=== PATIENT | male | born 1940 | race Hispanic/Latino ===

== ENCOUNTER 2017-10-29 20:14 | Emergency (ER) | payer MEDICARE ==
[~2017-10-29] VITALS: Ht 175.3 cm; Wt 87.5 kg
--- OUTSIDE RECORDS SUMMARY | 2017-10-29 20:18 | XMS REPORT | Summary of Care ---
Author Author NII ESCOBAR M.D. Organization Unknown Address Unknown Phone Unavailable Care Team Providers Care Can Vacuum Tester Name Role Phone NII ESCOBAR M.D. 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 Active Nitrostat 0.4 MG Sublingual Tablet Sublingual PLACE 1 TABLET UNDER THE TONGUE EVERY 5 MINUTES UP TO 3 DOSES NEEDED FOR CHEST PAIN. * Quantity: 30 Refills: 4 NII ESCOBAR M.D. Active Omeprazole 20 MG Oral Capsule Delayed Release TAKE 1 CAPSULE Once PRN * Refills: 0 Active Multiple Vitamin TABS TAKE 1 TABLET DAILY. * Refills: 0 Active Aspirin 81 MG TABS TAKE 1 TABLET DAILY. * Refills: 0 Active Metoprolol Succinate ER 100 MG Oral Tablet Extended Release 24 Hour TAKE 1 TABLET DAILY * Refills: 2 * Start : 24-Aug-2011 Active Tamsulosin HCl - 0.4 MG Oral Capsule TAKE 1 CAPSULE ONCE * Refills: 0 Active MetFORMIN HCl - 500 MG Oral Tablet TAKE 1 TABLET TWICE DAILY. * Refills: 0 * Start : 31-Jan-2016 Active Atorvastatin Calcium 40 MG Oral Tablet qhs * Refills: 0 * Start : 17-Feb-2016 Active Lisinopril 5 MG Oral Tablet TAKE 1 TABLET DAILY * Quantity: 30 Refills: 0 * Start : 17-Feb-2016 Active Finasteride 5 MG Oral Tablet TAKE 1 TABLET DAILY. * Refills: 0 * Start : 11-Apr-2016 Active Furosemide 20 MG Oral Tablet TAKE 1 TABLET DAILY. * Quantity: 30 Refills: 0 NII ESCOBAR M.D. * Start : 11-Apr-2016 Active Allergies and Adverse Reactions Name Dates Details No Known Drug Allergies (Allergy) Status: Active Past Medical History Name Dates Details History of angina pectoris (V12.59, Z86.79) Status: Resolved History of Coronary Artery Disease (V12.59) Status: Resolved History of esophageal reflux (V12.79, Z87.19) Status: Resolved History of essential hypertension (V12.59, Z86.79) Status: Resolved Procedures Procedure Dates Details History of Hernia Repair Completed History of Cath Stent Placement Completed History of CABG Completed Immunization Name Dates Details Immunizations not documented Family History Name Dates Details Family history of Heart Disease (V17.49) Comments: Family History Status: Active Name Dates Details Family history of Hypertension (V17.49) Status: Active Social History Name Dates Details - Status: Name Dates Details Never smoker Vital Signs Date Test Result Details 15-Oct-20178:59 BP Systolic 130 mm[Hg] Status: BP Diastolic 84 mm[Hg] Status: Height 69 in Status: Weight 193 lb Status: Body Mass Index Calculated 28.5 kg/m2 Status: Body Surface Area Calculated 2.03 m2 Status: Heart Rate 62 /min Status: Results Date Description Value Details Results not documented Plan of Care Name Dates Details Planned Observations Planned Goals not documented Planned Encounters Endocrinology Referral Appointment; NII ESCOBAR M.D. On: 11-Feb-2018 9:00 Interventions Provided Instructions* Patient Specific Education Given; Done: 15 Oct 2017 Plan* 1. Coronary artery disease * - Cardiac PET suggestive of HOSPITALITY JOB TITLES LAD * - Signs of alarm provided and card given w/ indication to [place] [facility] [place] worsening * - CABG 4x JORDAN--LAD, SVG to RCA, SVG to D1 and SVG to OM * - no complication thereafter * - no limitations in ADLS * - LBBB chronic * 2. Hypertension * - Well controlled. * - Continue Beta Shasha and GIGI-I as above * 3. Hyperlipidemia * - Continue Lipitor 20 mg (LDL 60's) * 4. HbA1C 6.3 * - Extensive counseling provided regarding diabetes management and its impact in CV disease. * 5. Follow up in 4 mos w/ BP log * - regular, aggressive secondary prevention and referral to Endocrine Discussion/Summary* Clinical cardiac findings reviewed and discussed * EKG reviewed and discussed. Instructions Name Dates Details Instructions not documented Encounters Appointment; NII ESCOBAR M.D. Encounter Diagnosis: Problem not documented On: 18-Oct-2015 9:40 Appointment; NII ESCOBAR M.D. Encounter Diagnosis: Problem not documented On: 20-Dec-2015 9:00 Appointment; SE, NUCLEAR Encounter Diagnosis: Problem not documented On: 23-Dec-2015 9:30 Appointment; NII ESCOBAR M.D. Encounter Diagnosis: Problem not documented On: 30-Dec-2015 8:50 Appointment; NII ESCOBAR M.D. Encounter Diagnosis: Problem not documented On: 31-Jan-2016 9:20 Appointment; NII ESCOBAR M.D. Encounter Diagnosis: Problem not documented On: 11-Apr-2016 11:30 Appointment; NII ESCOBAR M.D. Encounter Diagnosis: Problem not documented On: 03-Jul-2016 8:15 Appointment; NII ESCOBAR M.D. Encounter Diagnosis: Problem not documented On: 30-Oct-2016 9:15 Appointment; NII ESCOBAR M.D. Encounter Diagnosis: Problem not documented On: 05-Mar-2017 9:15 Appointment; NII ESCOBAR M.D. Encounter Diagnosis: Problem not documented On: 05-Mar-2017 9:20 Appointment; SE, ECHO Encounter Diagnosis: Problem not documented On: 02-Apr-2017 9:00 Appointment; NII ESCOBAR M.D. Encounter Diagnosis: Problem not documented On: 10-Apr-2017 8:30 Appointment; SE, ECHO Encounter Diagnosis: Problem not documented On: 07-May-2017 8:00 Appointment; NII ESCOBAR M.D. Encounter Diagnosis: Problem not documented On: 07-May-2017 8:30 Appointment; NII ESCOBAR M.D. Encounter Diagnosis: Problem not documented On: 11-Jun-2017 9:10 Appointment; NII ESCOBAR M.D. Encounter Diagnosis: Problem not documented On: 15-Oct-2017 9:00
[2017-10-29] MEDS ORDERED: METOPROLOL SUCC50 MG PO (20:29)
[2017-10-29] MEDS ORDERED: TAMSULOSIN HCL0.4 MG (20:29)
[2017-10-29] MEDS ORDERED: ASPIR 8181 MG (20:29)
[2017-10-29] MEDS ORDERED: METFORMIN HCL500 MG PO (20:29)
[2017-10-29] MEDS ORDERED: ATORVASTATIN CA20 MG PO (20:29)
[2017-10-29] MEDS ORDERED: LISINOPRIL10 MG PO (20:29)
[2017-10-29] MEDS ORDERED: LASIX20 MG PO (20:29)
== END 2017-10-29 20:52 | disposition home or self-care (01) ==
LOC: FSED 20:14
DX: R19.7 Diarrhea, unspecified (principal); I10 Essential (primary) hypertension; E11.9 Type 2 diabetes mellitus without complications; E78.5 Hyperlipidemia, unspecified; I51.9 Heart disease, unspecified
CPT/HCPCS: 74176; 80053; 81003; 85025; 99282

== ENCOUNTER 2018-08-21 12:21 | Emergency (ER) | payer MEDICARE ==
[~2018-08-21] VITALS: Ht 175.3 cm; Wt 86.2 kg
[~2018-08-21 12:21] MED LIST: ASPIR 8181 MG; ATORVASTATIN CA20 MG PO; LASIX20 MG PO; LISINOPRIL10 MG PO; METFORMIN HCL500 MG PO; METOPROLOL SUCC50 MG PO; TAMSULOSIN HCL0.4 MG
--- OUTSIDE RECORDS SUMMARY | 2018-08-21 12:24 | XMS REPORT | Continuity of Care Document ---
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 SOB Active 02/24/2016 [facility] SYNCOPE Active 02/23/2016 [facility] CORONARY ARTERY DISEASE Active 02/23/2016 [facility] CONSULT FOR CABG Active 02/17/2016 [facility] ABN NUCLEAR STRESS TEST, CAD, CHEST PAIN Active 02/02/2016 [facility] Angina Resolved Problem 07/25/2016 [facility] GARY Osullivan CAD - Coronary artery disease Resolved Problem 07/25/2016 [facility] GARY Osullivan GERD (<span [id number]</span>) Resolved Problem 07/25/2016 [facility] GARY Osullivan HLD (<span [id number]">Confirmed</span>) Resolved Problem 07/25/2016 [facility] GARY Osullivan HTN (<span [id number]">Confirmed</span>) Resolved Problem 07/25/2016 [facility] GARY Osullivan Left ventricular hypertrophy Resolved Problem 07/25/2016 [facility] GARY Osullivan Murmur Resolved Problem 07/25/2016 [facility] GARY Osullivan Coronary artery disease [facility] Hyperlipidemia [facility]olved Problem 07/25[facility] Hypertension Resolved Problem 07/25[facility] ENCNTR FOR GENERAL ADULT MEDICAL EXAM W/ Active [facility] SYNCOPE AND COLLAPSE Active [facility] SHORTNESS OF BREATH Active [facility] OTHER SPECIFIED CONGENITAL DEFORMITIES Active [facility] PRESENCE OF AORTOCORONARY BYPASS GRAFT Active [facility] Medications Medication Details Route Status Patient Instructions Ordering Provider Order Date Source Acetaminophen 300 MG / Codeine Phosphate 30 MG Oral Tablet [Tylenol with Codeine #3] 1 tab, PO, Q8H, X 7 day, # 21 tab, 0 Refill(s) Active 03/21/2016 [facility] atorvastatin 40 mg oral tablet 40 mg=1 tab, PO, Daily, # 30 tab, 3 Refill(s) Active 03/21/2016 [facility] 24 HR Metoprolol Tartrate 100 MG Extended Release Tablet [Toprol] 100 mg=1 tab, PO, Daily, # 30 tab, 3 Refill(s) Active 03/21/2016 [facility] Dulcolax Laxative 10 mg, 1 supp, Route: UT, Drug form: SUPP, ONCE, Dosing Weight 86.3, kg, PRN as needed for constipation, Start date: 03/20/16 16:26:00 CDTNotes: (Same As: Dulcolax, Bisco-Lax) Inactive 03/20/2016 [facility] metoprolol tartrate 50 mg, 1 tab, Route: PO, Drug form: TAB, Q12H, Dosing Weight 86.3, kg, Start date: 03/18/16 21:00:00 CDT, Stop date: 04/17/16 9:00:00 CDTNotes: (Same as: Lopressor) No Longer Active 03/19/2016 [facility] Lactulose 10 gm, 15 mL, Route: PO, Drug Form: SYRP, Dosing Weight 86.3, kg, ONCE, Start date: 03/18/16 2:48:00 CDT, Stop date: 03/18/16 2:48:00 CDTNotes: (Same as:Chronulac) Inactive 03/18/2016 [facility] metoprolol tartrate 12.5 mg, 1 tab, Route: PO, Drug form: TAB, Q6H, Dosing Weight 86.3, kg, Start date: 03/17/16 12:00:00 CDT, Duration: 30 day, Stop date: 04/16/16 6:00:00 CDTNotes: (Same as: Lopressor) 12.5mg=1/4 X 50 mg tab. No Longer Active 03/17/2016 [facility] Insulin, Aspart, Human 2 unit, 0.02 mL, Route: SUB-Q, Drug form: SOLN, TID-Before Meals, Dosing Weight 86.3, kg, PRN Blood Glucose Results, Start date: 03/17/16 11:07:00 CDT, Duration: 30 day, Stop date: 04/16/16 11:06:00 CDTNotes: Roll in palms of hands gently; Do not shake vigorously. (Same as: NovoLOG) "single patient use only" WASTE: F/P - Black; E - Municipal Trash Bin Stable for 28 days at room temperature. Expires in days from Date No Longer Active 03/17/2016 [facility] Dextrose 50% Syringe 12.5 gm, 25 mL, Route: IVP, Drug Form: INJ, Dosing Weight 86.3, kg, PRN, PRN Blood Glucose Results, Start date: 03/17/16 11:07:00 CDT, Duration: 30 day, Stop date: 04/16/16 11:06:00 CDT No Longer Active 03/17/2016 [facility] Glucagon 1 mg, Route: IM, Drug form: PDR/INJ, PRN, Dosing Weight 86.3, kg, PRN Blood Glucose Results, Start date: 03/17/16 11:07:00 CDT, Duration: 30 day, Stop date: 04/16/16 11:06:00 CDT No Longer Active 03/17/2016 [facility] Aspirin 81 mg, 1 tab, Route: PO, Drug form: ECTAB, Daily, Dosing Weight 86.364, kg, Start date: 03/17/16 9:00:00 CDT, Stop date: 04/15/16 9:00:00 CDTNotes: Do not crush or chew. (Same As: Ecotrin) No Longer Active 03/17/2016 [facility] sennosides, CARE HOME 8.6 mg, 1 tab, Route: PO, Drug Form: TAB, Dosing Weight 86.3, kg, BID, Start date: 03/17/16 9:00:00 CDT, Duration: 30 day, Stop date: 04/15/16 17:00:00 CDTNotes: (Same as: Senokot) No Longer Active 03/17/2016 [facility] atorvastatin 40 mg, 1 tab, Route: PO, Drug form: TAB, Bedtime, Dosing Weight 86.3, kg, Start date: 03/16/16 21:00:00 CDT, Duration: 30 day, Stop date: 04/14/16 21:00:00 CDTNotes: (Same as: Lipitor) No Longer Active 03/17/2016 [facility] heparin sodium, porcine 2500 UNT/ML Injectable Solution 5,000 unit, 1 mL, Route: SUB-Q, Drug form: INJ, Q8H, Dosing Weight 86.3, kg, Start date: 03/16/16 16:00:00 CDT, Duration: 30 day, Stop date: 04/15/16 8:00:00 CDTNotes: porcine heparin No Longer Active 03/16/2016 [facility] pantoprazole 40 mg, Route: IVP, Drug form: INJ, Daily, Dosing Weight 86.364, kg, Start date: 03/16/16 9:00:00 CDT, Duration: 30 day, Stop date: 04/14/16 9:00:00 CDTNotes: For IV push reconstitute with 10 ml 0.9% sodium chloride and push over 2 minutes. (Same as: Protonix) No Longer Active 03/16/2016 [facility] Aspirin 325 mg, 1 tab, Route: NG, Drug form: TAB, Daily, Dosing Weight 86.364, kg, Start date: 03/16/16 9:00:00 CDT, Duration: 30 day, Stop date: 04/14/16 9:00:00 CDTNotes: Take with food. Inactive 03/16/2016 [facility] Aspirin 300 MG Rectal Suppository 300 mg, 1 supp, Route: UT, Drug form: SUPP, Daily, Dosing Weight 86.364, kg, Start date: 03/16/16 9:00:00 CDT, Duration: 30 day, Stop date: 04/14/16 9:00:00 CDTNotes: Refrigerate. No Longer Active 03/16/2016 [facility] Dextrose 50% Syringe 12.5 gm, 25 mL, Route: IVP, Drug Form: INJ, Dosing Weight 86.3, kg, PRN, PRN Blood Glucose Results, Start date: 03/16/16 8:57:00 CDT, Duration: 30 day, Stop date: 04/15/16 8:56:00 CDT No Longer Active 03/16/2016 [facility] Glucagon 1 mg, Route: IM, Drug form: PDR/INJ, PRN, Dosing Weight 86.3, kg, PRN Blood Glucose Results, Priority: STAT, Start date: 03/16/16 8:57:00 CDT, Duration: 30 day, Stop date: 04/15/16 8:56:00 CDT No Longer Active 03/16/2016 [facility] Insulin, Aspart, Human 4 unit, 0.04 mL, Route: SUB-Q, Drug form: SOLN, Sliding Scale, Dosing Weight 86.3, kg, PRN Blood Glucose Results, Start date: 03/16/16 8:57:00 CDT, Duration: 30 day, Stop date: 04/15/16 8:56:00 CDTNotes: Roll in palms of hands gently; Do not shake vigorously. (Same as: NovoLOG) "single patient use only" WASTE: F/P - Black; E - Municipal Trash Bin Stable for 28 days at room temperature. Expires in days from Date No Longer Active 03/16/2016 [facility] Protonix 40 mg, 1 tab, Route: PO, Drug form: ECTAB, Before Breakfast, Dosing Weight 86.3, kg, Start date: 03/16/16 7:30:00 CDT, Duration: 30 day, Stop date: 04/14/16 7:30:00 CDTNotes: Tablet should not be chewed or crushed. (Same as: Protonix) No Longer Active 03/16/2016 [facility] Vancomycin 6.67 MG/ML Injectable Solution 750 mg, Route: IVPB, Drug form: PDR/INJ, [id number], Dosing Weight 86.364, kg, Start date: 03/15/16 21:00:00 CDT, Duration: 2 doses or times, Stop date: 03/16/16 9:00:00 CDTNotes: TIME CRITICAL MEDICATION (Same As: Vancocin) Infusion rate 2001 mg: infuse over 2.5 hours No Longer Active 03/16/2016 [facility] ceFAZolin (SCIP) 2 gm, 100 mL, Route: IVPB, Drug form: INJ, ABXQ8H, Dosing Weight 86.3, kg, Start date: 03/15/16 20:00:00 CDT, Duration: 3 doses or times, Stop date: 03/16/16 12:00:00 CDTNotes: Same as: Ancef No Longer Active 03/16/2016 [facility] albumin human 5% intravenous solution 12.5 gm, 250 mL, Route: IV, Drug Form: INJ, Dosing Weight 86.3, kg, ONCE, Start date: 03/15/16 19:19:00 CDT, Stop date: 03/15/16 19:19:00 CDTNotes: LOT#: Mfg: WASTE: F/P - Red; E -Red (Same as: Albuminar) "blood product derivative" Inactive 03/16/2016 [facility] albumin human 25% intravenous solution 25 gm, 100 mL, Route: IVPB, Drug form: INJ, ONCE, Dosing Weight 86.3, kg, Start date: 03/15/16 18:09:00 CDT, Stop date: 03/15/16 18:09:00 CDTNotes: Lot #: Mfg: (Same as: Plasbumin-25) "blood product derivative" WASTE: F/P - Red; E -Red MEDICATION WASTE Product Size: 25 gm Product Wasted: _0_ gm Inactive 03/15/2016 [facility] EPINEPHrine 1 mg/1 ml (PF) INJ AMP 4 mg + sodium chloride 0.9% INJ 246 mL 4 mg, 4 mL, Rate: Titrate, Start Dose: 5 microgram/min, Titration: 0.5 microgram/min every 2 min, Goal(s): MAP >=65 mmHg, Max Dose: 35 microgram/min, Route: IV, Dosing Weight 86.3 kg, Total Volume: 250, Start date: 03/15/16 18:09:00 CDT, Duration: 30...Notes: (Same as: Adrenalin) Suremed - Injectable drug used as inhalation treatment. MEDICATION WASTE Product Size: 1 mg Product Wasted: _0_ mg No Longer Active 03/15/2016 [facility] albumin human 25% intravenous solution 25 gm, 100 mL, Route: IVPB, Drug form: INJ, ONCE, Dosing Weight 86.3, kg, Start date: 03/15/16 17:46:00 CDT, Stop date: 03/15/16 17:46:00 CDTNotes: Lot #: Mfg: (Same as: Plasbumin-25) "blood product derivative" WASTE: F/P - Red; E -Red MEDICATION WASTE Product Size: 25 gm Product Wasted: _0_ gm Inactive 03/15/2016 [facility] Docusate Sodium 100 MG Oral Capsule [Colace] 100 mg, 1 cap, Route: PO, Drug form: CAP, BID, Dosing Weight 86.364, kg, Start date: 03/15/16 17:00:00 CDT, Duration: 30 day, Stop date: 04/14/16 9:00:00 CDTNotes: (Same as: Colace) (Do Not Crush) No Longer Active 03/15/2016 [facility] Insulin, Aspart, Human 4 unit, 0.04 mL, Route: SUB-Q, Drug form: SOLN, TID-Before Meals, Dosing Weight 86.3, kg, PRN Blood Glucose Results, Start date: 03/15/16 16:45:00 CDT, Duration: 30 day, Stop date: 04/14/16 16:44:00 CDTNotes: Roll in palms of hands gently; Do not shake vigorously. (Same as: NovoLOG) "single patient use only" WASTE: F/P - Black; E - Municipal Trash Bin Stable for 28 days at room temperature. Expires in days from Date Inactive 03/15/2016 [facility] Dextrose 50% Syringe 25 gm, 50 mL, Route: IVP, Drug Form: INJ, Dosing Weight 86.3, kg, PRN, PRN Blood Glucose Results, Start date: 03/15/16 16:45:00 CDT, Duration: 30 day, Stop date: 04/14/16 16:44:00 CDT Inactive 03/15/2016 [facility] Glucagon 1 mg, Route: IM, Drug form: PDR/INJ, PRN, Dosing Weight 86.3, kg, PRN Blood Glucose Results, Start date: 03/15/16 16:45:00 CDT, Duration: 30 day, Stop date: 04/14/16 16:44:00 CDT Inactive 03/15/2016 [facility] Sodium Chloride 0.154 MEQ/ML Injectable Solution 250 mL, 250 ml/hr, Infuse Over: 1 hr, Route: IV, ONCE, Priority: STAT, Dosing Weight 86.3 kg, Start date: 03/15/16 16:33:00 CDT, Duration: 1 doses or times, Stop date: 03/15/16 16:33:00 CDT Inactive 03/15/2016 [facility] sodium chloride 0.9% INJ 250 mL 250 mL, Rate: 500 ml/hr, Infuse over: 0.5 hr, Route: IV, Dosing Weight 86.3 kg, Total Volume: 250, Start date: 03/15/16 16:29:00 CDT, Duration: 1 doses or times, Stop date: 03/15/16 16:58:00 CDT Inactive 03/15/2016 [facility] Sodium Chloride 0.154 MEQ/ML Injectable Solution 250 mL, 250 ml/hr, Infuse Over: 1 hr, Route: IV, ONCE, Priority: Routine, Dosing Weight 86.3 kg, Start date: 03/15/16 15:00:00 CDT, Duration: 1 doses or times, Stop date: 03/15/16 15:00:00 CDT Inactive 03/15/2016 [facility] Fentanyl 600 microgram, 30 mL, Route: IV, MEDICAID SERVICE COORDINATOR Dose: 10 mcg, MEDICAID SERVICE COORDINATOR Lockout: 10 minutes, Continuous Basal Rate: 0 mg, 4 Hour Limit (In MCG): 240, Drug Form: INJ, Continuous, Start date: 03/15/16 14:00:00 CDT, Durati on: 30 day, Stop date: 04/14/16 13:59:00 CDTNotes: Concentration is 20 micrograms/ml No Longer Active 03/15/2016 [facility] Naloxone 0.04 mg, 0.1 mL, Route: IVP, Drug form: INJ, Q2MIN, Dosing Weight 86.3, kg, PRN Narcotic Reversal, Start date: 03/15/16 13:40:00 CDT, Duration: 30 day, Stop date: 04/14/16 13:39:00 CDTNotes: Same as Narcan No Longer Active 03/15/2016 [facility] Dextrose 50% Syringe 12.5 gm, 25 mL, Route: IVP, Drug Form: INJ, Dosing Weight 86.3, kg, PRN, PRN Blood Glucose Results, Start date: 03/15/16 13:40:00 CDT, Duration: 30 day, Stop date: 04/14/16 13:39:00 CDT Inactive 03/15/2016 [facility] Insulin regular 100 unit + sodium chloride 0.9% INJ 99 mL 99 mL, Rate: Start Insulin Drip Per ICU Protocol, Dosing Weight 86.3, kg, Route: IVPB, Total Volume: 100, Start Date: 03/15/16 13:40:00 CDT, Duration: 30 day, Stop date: 04/14/16 13:39:00 CDT, Replace Every: 24 hrNotes: (Same as: Humulin R and NovoLIN R) WASTE: F/P - Black; E - Municipal Trash Bin (Do not shake) No Longer Active 03/15/2016 [facility] Hydralazine 10 mg, 0.5 mL, Route: IVP, Drug form: INJ, Q6H, Dosing Weight 86.3, kg, PRN Hypertension, Start date: 03/15/16 13:40:00 CDT, Duration: 30 day, Stop date: 04/14/16 13:39:00 CDTNotes: (Same as: Apresol ine) Push over 5 minutes No Longer Active 03/15/2016 [facility] Metoprolol 2.5 mg, 2.5 mL, Route: IVP, Drug form: INJ, Q4H, Dosing Weight 86.3, kg, PRN Hypertension, Start date: 03/15/16 13:40:00 CDT, Duration: 30 day, Stop date: 04/14/16 13:39:00 CDTNotes: (Same as: Lopres sor) Push over 2 minutes No Longer Active 03/15/2016 [facility] Labetalol 10 mg, 2 mL, Route: IVP, Drug form: INJ, Q4H, Dosing Weight 86.3, kg, PRN Hypertension, Start date: 03/15/16 13:40:00 CDT, Duration: 30 day, Stop date: 04/14/16 13:39:00 CDT No Longer Active 03/15/2016 [facility] niCARdipine 40 mg/ NS 200 ml IV Soln (premix) 40 mg 40 mg, 200 mL, Rate: Titrate, Start Dose: 5 mg/hr, Titration: increase or decrease by 5, but no more than 10, Goal(s): MAP 60, Route: IV, Dosing Weight 86.3 kg, Total Volume: 200 mL, Start date: 03/15/16 13:40:00 CDT, Duration: 30 day, Stop date: ...Notes: Same as: Cardene Concentration: (0.2 mg /1 ml ) No Longer Active 03/15/2016 [facility] Zofran 4 mg, 2 mL, Route: IV, Drug form: INJ, Q6H, Dosing Weight 86.364, kg, PRN Nausea, Start date: 03/15/16 13:40:00 CDT, Duration: 30 day, Stop date: 04/14/16 13:39:00 CDTNotes: (Same as: Zofran) MEDICATION WASTE Product Size: 4 mg Product Wasted: _0_ mg No Longer Active 03/15/2016 [facility] Acetaminophen 325 MG / Hydrocodone Bitartrate 10 MG Oral Tablet 2 tab, Route: PO, Drug Form: TAB, Dosing Weight 86.3, kg, Q4H, PRN Pain Score 4-6, Start date: 03/15/16 13:40:00 CDT, Duration: 30 day, Stop date: 04/14/16 13:39:00 CDTNotes: Do not exceed 4gm/day of acetaminophen. (Same as: Casey 325/10) No Longer Active 03/15/2016 [facility] Fentanyl 25 microgram, 0.5 mL, Route: IVP, Drug form: INJ, Q2H, Dosing Weight 86.3, kg, PRN Pain Score 4-6, Start date: 03/15/16 13:40:00 CDT, Duration: 30 day, Stop date: 04/14/16 13:39:00 CDTNotes: (Same as: Sublimaze) Preservative free. No Longer Active 03/15/2016 [facility] Acetaminophen 650 mg, 2 tab, Route: PO, Drug form: TAB, Q4H, Dosing Weight 86.3, kg, PRN Pain 1-3/Temp > 100.4 F, Start date: 03/15/16 13:40:00 CDT, Duration: 30 day, Stop date: 04/14/16 13:39:00 CDTNotes: Do not exceed 4 gm/day. (Same as: Tylenol) No Longer Active 03/15/2016 [facility] Aspirin 325 MG Oral Tablet 325 mg, 1 tab, Route: NG, Drug form: TAB, ONCE, Dosing Weight 86.364, kg, Start date: 03/15/16 13:40:00 CDT, Stop date: 03/15/16 13:40:00 CDTNotes: Take with food. Inactive 03/15/2016 [facility] sodium bicarbonate (ANES) Route: IV, Drug form: INJ, ONCE, Stop date: 03/15/16 13:23:00 CDT Inactive 03/15/2016 [facility] calcium gluconate (ANES) Route: IV, Drug form: INJ, ONCE, Stop date: 03/15/16 12:53:00 CDT Inactive 03/15/2016 [facility] protamine (ANES) Route: IV, Drug form: INJ, ONCE, Stop date: 03/15/16 12:48:00 CDT Inactive 03/15/2016 [facility] EPINEPHrine (ANES) (ANES) Route: IV, Drug form: INJ, Start date: 03/15/16 11:32:00 CDT, Stop date: 03/15/16 12:32:00 CDT Inactive 03/15/2016 [facility] heparin (ANES) Route: IV, Drug form: INJ, ONCE, Stop date: 03/15/16 9:52:00 CDT Inactive 03/15/2016 [facility] ceFAZolin (ANES) Route: IV, Drug form: INJ, ONCE, Stop date: 03/15/16 9:06:00 CDT Inactive 03/15/2016 [facility] vancomycin (ANES) (ANES) Route: IV, Drug form: INJ, Start date: 03/15/16 8:39:00 CDT, Stop date: 03/15/16 9:39:00 CDT Inactive 03/15/2016 [facility] tranexamic acid (ANES) (ANES) Route: IV, Drug form: INJ, Start date: 03/15/16 8:38:00 CDT, Stop date: 03/15/16 9:38:00 CDT Inactive 03/15/2016 [facility] esmolol (ANES) Route: IV, Drug form: INJ, ONCE, Stop date: 03/15/16 8:26:00 CDT Inactive 03/15/2016 [facility] rocuronium (ANES) Route: IV, Drug form: INJ, ONCE, Stop date: 03/15/16 8:21:00 CDT Inactive 03/15/2016 [facility] propofol (ANES) Route: IV, Drug form: INJ, ONCE, Stop date: 03/15/16 8:21:00 CDT Inactive 03/15/2016 [facility] lidocaine (ANES) Route: IV, Drug form: INJ, ONCE, Stop date: 03/15/16 8:21:00 CDT Inactive 03/15/2016 [facility] fentaNYL (ANES) Route: IV, Drug form: INJ, ONCE, Stop date: 03/15/16 8:21:00 CDT Inactive 03/15/2016 [facility] midazolam (ANES) Route: IV, Drug form: SOLN, ONCE, Stop date: 03/15/16 8:21:00 CDT Inactive 03/15/2016 [facility] sodium chloride 0.9% 500 ml INJ (ANES) Route: IV, Total Volume: 500, Start date: 03/15/16 8:15:00 CDT, Stop date: 03/15/16 9:15:00 CDT Inactive 03/15/2016 [facility] sodium chloride 0.9% 1000 ml INJ (ANES) Route: IV, Total Volume: 1,000, Start date: 03/15/16 7:43:00 CDT, Stop date: 03/15/16 8:43:00 CDT Inactive 03/15/2016 [facility] Saline Flush 0.9% 5 ml, Route: MISC, Drug Form: INJ, Dosing Weight 86.364, kg, Q12H, Start date: 03/14/16 21:00:00 CDT, Duration: 30 day, Stop date: 04/13/16 9:00:00 CDTNotes: (Same as: BD Posiflush) No Longer Active 03/15/2016 [facility] Cefazolin 2 gm, 100 mL, Route: IVPB, Drug form: INJ, ONCALL, Dosing Weight 86.364, kg, Start date: 03/14/16 14:00:00 CDT, Duration: 30 day, Stop date: 04/13/16 13:59:00 CDTNotes: Same as: Ancef No Longer Active 03/14/2016 [facility] Saline Flush 0.9% 5 ml, Route: MISC, Drug Form: INJ, Dosing Weight 86.364, kg, PRN, PRN Line Flush, Start date: 03/14/16 13:33:00 CDT, Duration: 30 day, Stop date: 04/13/16 13:32:00 CDTNotes: (Same as: BD Posiflush) No Longer Active 03/14/2016 [facility] Metoprolol 2 mg, 2 mL, Route: IVP, Drug form: INJ, ONCE, Dosing Weight 86.364, kg, Start date: 03/14/16 13:33:00 CDT, Duration: 1 doses or times, Stop date: 03/14/16 13:33:00 CDTNotes: (Same as: Lopressor) Push over 2 minutes No Longer Active 03/14/2016 [facility] sodium chloride 0.9% INJ 250 mL 250 mL, Rate: Titrate, Dosing Weight 86.364, kg, Route: IV, Total Volume: 250, Start Date: 03/14/16 13:33:00 CDT, Duration: 30 day, Stop date: 04/13/16 13:32:00 CDT, Replace Every: 24 hr No Longer Active 03/14/2016 [facility] acetaminophen-codeine #3 1 tab, Route: PO, Drug Form: TAB, Dosing Weight 86.364, kg, Q4H, PRN Pain Score 4-6, Start date: 02/16/16 17:18:00 CDT, Duration: 30 day, Stop date: 03/17/16 17:17:00 CDTNotes: Do not exceed 4gm/day of acetaminophen. (Same as: Tylenol with Codeine # 3) No Longer Active 02/16/2016 [facility] Sodium Chloride 0.154 MEQ/ML Injectable Solution 250 mL, 250 ml/hr, Infuse Over: 1 hr, Route: IV, 250, Drug form: INJ, ONCE, Dosing Weight 86.364 kg, Start date: 02/16/16 17:18:00 CDT, Duration: 1 doses or times, Stop date: 02/16/16 17:18:00 CDT Inactive 02/16/2016 [facility] Prostate 2.4 1 cap, PO, Daily, 0 Refill(s) Active 02/16/2016 [facility] 12 HR ranolazine 500 MG Extended Release Tablet [Ranexa] 500 mg=1 tab, PO, BID, # 60 tab, 0 Refill(s) Active 02/16/2016 [facility] isosorbide mononitrate 60 mg oral tablet, extended release 60 mg=1 tab, PO, QAM, # 90 tab, 3 Refill(s) Active 02/16/2016 [facility] tamsulosin 0.4 mg oral capsule 0.4 mg=1 cap, PO, Daily, # 90 cap, 0 Refill(s) Active 02/16/2016 [facility] Metformin hydrochloride 500 MG Oral Tablet 500 mg=1 tab, PO, BID-Meals, # 180 tab, 1 Refill(s) Active 02/16/2016 [facility] Allergies, Adverse Reactions, Alerts Substance Category Reaction Severity Reaction type Status Date Reported Comments Source Immunizations Immunization Date Given Site Status Last Updated Comments Source pneumococcal 23-valent vaccine 03/17/2006 Right arm completed Toby Pamela,[facility], GARY Osullivan Results Order Name Results Value Reference Range Date Interpretation Comments Source Chest 2 views DX Chest 2 views DX EXAM: XR CHEST 2 VIEWS DATE: 03/30/2016 2:42 PM CDT INDICATION: shortness of breath COMPARISON: Chest radiograph dated 03/21/2016 TECHNIQUE: PA and lateral chest radiographs FINDINGS: Lungs are symmetrically well expanded. There is mild right basilar atelectasis. Slightly more prominent linear type opacities in the left lower lobe with small left pleural effusion is improved from the prior study. No new focal consolidation identified. Pulmonary vascularity is normal. Cardiomediastinal silhouette is unchanged. Continued thickening of the right superior mediastinum and right paratracheal stripe with filling of the retrosternal clear space on lateral view. No acute osseous abnormality is identified. IMPRESSION: 1. Improving small left pleural effusion with associated left basilar atelectasis/consolidation. 2. Continued thickening of the right superior mediastinum and right paratracheal stripe may represent prominent or tortuous vascular structures, but nonspecific. CT of the chest can be obtained for further evaluation. 03/30/2016 - - Read by: Carlitos Zayas MD Dictated Date/time: 03/30/16 16:08 Electronically Signed by: Carlitos Zayas MD 03/30/16 16:16 FINAL REPORT [facility] BODY FLUIDS pH BF 7.50 03/21/2016 [facility] BODY FLUIDS pH BF Type Pleural (03/21/16 2:38 PM) 03/21/2016 [facility] BODY FLUIDS LDH BF Type Pleural *NA* (03/21/16 2:38 PM) 03/21/2016 [facility] BODY FLUIDS LDH BF 391 unit/L 03/21/2016 [facility] BODY FLUIDS Prot BF Type Pleural *NA* (03/21/16 2:38 PM) 03/21/2016 [facility] BODY FLUIDS Protein BF 3.0 g/dL 03/21/2016 [facility] BODY FLUIDS Clarity BF Marked *ABN* (03/21/16 2:38 PM) Clear 03/21/2016 [facility] [place] [address] /mm3 03/21/2016 [facility] BODY FLUIDS WBC BF 578 /mm3 03/21/2016 [facility] BODY FLUIDS Color BF Red *ABN* (03/21/16 2:38 PM) Colorless 03/21/2016 [facility] BODY FLUIDS CellCnt BF Type Pleural (03/21/16 2:38 PM) 03/21/2016 [facility] BODY FLUIDS Lymph BF 31 % 03/21/2016 [facility] BODY FLUIDS Segs BF 37 % 03/21/2016 [facility] BODY FLUIDS Eos BF 4 % 03/21/2016 [facility] BODY FLUIDS Macrophage BF 28 % 03/21/2016 [facility] Chest 1view DX Chest 1view DX EXAM: XR CHEST 1 VIEW DATE: 03/21/2016 1:48 PM CDT INDICATION: Pleural effusion. FINDINGS: Comparison is made to March 21 at 8:38 AM. The cardiomediastinal silhouette is prominent but stable. There is persistent prominence of the right side of the mediastinum. This should be further evaluated with PA and lateral views. The left hemidiaphragm is elevated. There is bibasilar platelike atelectasis. A small left pleural effusion persists. IMPRESSION: No change. 03/21/2016 - - Read by: Amie Moreno MD Dictated Date/time: 03/21/16 16:35 Electronically Signed by: Amie Moreno MD 03/21/16 16:36 FINAL REPORT [facility] Chest US Chest US EXAM: US CHEST DATE: 03/21/2016 1200 hours INDICATION: Pleuritic pain COMPARISON: Multiple chest radiographs most recently 03/21/2016 TECHNIQUE: Multiplanar grayscale and color Doppler ultrasound of the chest. FINDINGS: Right pleural effusion: Present Size: 10.4 x 8.98 x 10.3 cm (502 mL) Echogenicity: Anechoic. Left pleural effusion: None present Other: None. IMPRESSION: Right pleural effusion is seen measuring 520 mL as described above. 03/21/2016 - - This report was dictated by a Linker Up/Fellow. I have personally reviewed the images as well as the Resident's interpretation and agree with the findings. Read by: Haseeb Cr MD Resident: Haseeb Cr MD Dictated Date/time: 03/21/16 15:50 Electronically Signed by: Lauri Layne MD 03/22/16 08:13 FINAL REPORT [facility] CHEM PANEL Magnesium Lvl 2.2 mg/dL 1.8 - 2.4 03/21/2016 [facility] CHEM PANEL eGFR 74 mL/min/1.73m2 03/21/2016 Result Comment: The eGFR is calculated using the CKD-EPI formula. In most young, healthy individuals the eGFR will be >90 mL/min/1.73m2. The eGFR declines with age. An eGFR of 60-89 may be normal in some populations, particularly the elderly, for whom the CKD-EPI formula has not been extensively validated. Use of the eGFR is not recommended in the following populations: Individuals with unstable creatinine concentrations, including patients and those with serious co-morbid conditions. Patients with extremes in muscle mass or diet. The data above are obtained from the National Kidney Disease Education Program (NKDEP) which additionally recommends that when the eGFR is used in patients with extremes of body mass index for purposes of drug dosing, the eGFR should be multiplied by the estimated BMI. [facility] CHEM PANEL CO2 26 meq/L 24 - 32 03/21/2016 [facility] CHEM PANEL Calcium Lvl 8.4 mg/dL 8.5 - 10.5 03/21/2016 [facility] CHEM PANEL Sodium Lvl 135 meq/L 135 - 145 03/21/2016 [facility] CHEM PANEL Creatinine Lvl 0.98 mg/dL 0.50 - 1.40 03/21/2016 [facility] CHEM PANEL Potassium Lvl 4.4 meq/L 3.5 - 5.1 03/21/2016 [facility] CHEM PANEL Chloride Lvl 101 meq/L 95 - 109 03/21/2016 [facility] CHEM PANEL Glucose Lvl 106 mg/dL 70 - 99 03/21/2016 [facility] CHEM PANEL BUN 13 mg/dL 7 - 22 03/21/2016 [facility] CHEM PANEL AGAP 12.4 meq/L 10.0 - 20.0 03/21/2016 [facility] CHEM PANEL Phosphorus 3.3 mg/dL 2.5 - 4.5 03/21/2016 [facility] HEMATOLOGY Platelet 234 K/CMM 133 - 450 03/21/2016 [facility] HEMATOLOGY MPV 9.5 fL 7.4 - 10.4 03/21/2016 [facility] HEMATOLOGY Hct 26.3 % 42.0 - 54.0 03/21/2016 [facility] HEMATOLOGY MCH 30.1 pg 27.0 - 31.0 03/21/2016 [facility] HEMATOLOGY RDW 14.1 % 11.5 - 14.5 03/21/2016 [facility] HEMATOLOGY MCV 86.5 fL 80.0 - 94.0 03/21/2016 [facility] HEMATOLOGY MCHC 34.8 g/dL 32.0 - 36.0 03/21/2016 [facility] HEMATOLOGY WBC 7.5 K/CMM 3.7 - 10.4 03/21/2016 [facility] HEMATOLOGY RBC 3.04 M/CMM 4.70 - 6.10 03/21/2016 [facility] HEMATOLOGY Hgb 9.2 g/dL 14.0 - 18.0 03/21/2016 [facility] HEMATOLOGY Polychrom Moderate *ABN* (03/21/16 5:11 AM) None Seen 03/21/2016 [facility] HEMATOLOGY Monocytes # 0.8 K/CMM 0.0 - 0.8 03/21/2016 [facility] HEMATOLOGY Lymphocytes # 1.7 K/CMM 1.0 - 5.5 03/21/2016 [facility] HEMATOLOGY Eosinophils # 0.2 K/CMM 0.0 - 0.5 03/21/2016 [facility] HEMATOLOGY Hypochrom 1+ (03/21/16 5:11 AM) None Seen 03/21/2016 [facility] HEMATOLOGY Lymphocytes 22.7 % 20.0 - 40.0 03/21/2016 [facility] HEMATOLOGY Monocytes 11.3 % 2.0 - 12.0 03/21/2016 [facility] HEMATOLOGY Segs 63.6 % 45.0 - 75.0 03/21/2016 [facility] HEMATOLOGY Basophils 0.4 % 0.0 - 1.0 03/21/2016 [facility] HEMATOLOGY Segs-Bands # 4.8 K/CMM 1.5 - 8.1 03/21/2016 [facility] HEMATOLOGY Eosinophils 2.0 % 0.0 - 4.0 03/21/2016 [facility] Chest 1view DX Chest 1view DX EXAM: XR CHEST 1 VIEW DATE: 03/21/2016 6:46 AM CDT INDICATION: Abnormal chest sounds COMPARISON: Previous Day FINDINGS: Sternotomy wires remain. The cardiomediastinal silhouette is slightly less conspicuous. No distinct pneumothorax is identified. There is an opacity at the left lung base obscuring the left hemidiaphragm. This opacity may represent pleural fluid with or without associated atelectasis and/or pneumonia. Small right pleural effusion is present. IMPRESSION: 1. Pleural parenchymal opacity left lung base is stable which could represent alone or in combination pleural fluid, atelectasis, or pneumonia. 2. Trace right pleural effusion with minimal subsegmental atelectasis in the right lung base. 03/21/2016 - - This report was dictated by a Linker Up/Fellow. I have personally reviewed the images as well as the Resident's interpretation and agree with the findings. Read by: Otoniel Alexandra (Fellow) Resident: Otoniel Alexandra (Fellow) Dictated Date/time: 03/21/16 09:35 Electronically Signed by: Rober Cantu MD 03/21/16 09:49 FINAL REPORT [facility] CHEM PANEL Magnesium Lvl 2.2 mg/dL 1.8 - 2.4 03/20/2016 [facility] CHEM PANEL eGFR 69 mL/min/1.73m2 03/20/2016 Result Comment: The eGFR is calculated using the CKD-EPI formula. In most young, healthy individuals the eGFR will be >90 mL/min/1.73m2. The eGFR declines with age. An eGFR of 60-89 may be normal in some populations, particularly the elderly, for whom the CKD-EPI formula has not been extensively validated. Use of the eGFR is not recommended in the following populations: Individuals with unstable creatinine concentrations, including patients and those with serious co-morbid conditions. Patients with extremes in muscle mass or diet. The data above are obtained from the National Kidney Disease Education Program (NKDEP) which additionally recommends that when the eGFR is used in patients with extremes of body mass index for purposes of drug dosing, the eGFR should be multiplied by the estimated BMI. [facility] CHEM PANEL Creatinine Lvl 1.04 mg/dL 0.50 - 1.40 03/20/2016 [facility] CHEM PANEL BUN 14 mg/dL 7 - 22 03/20/2016 [facility] CHEM PANEL Glucose Lvl 100 mg/dL 70 - 99 03/20/2016 [facility] CHEM PANEL Calcium Lvl 8.1 mg/dL 8.5 - 10.5 03/20/2016 [facility] CHEM PANEL CO2 27 meq/L 24 - 32 03/20/2016 [facility] CHEM PANEL Chloride Lvl 104 meq/L 95 - 109 03/20/2016 [facility] CHEM PANEL Potassium Lvl 4.0 meq/L 3.5 - 5.1 03/20/2016 [facility] CHEM PANEL Sodium Lvl 140 meq/L 135 - 145 03/20/2016 [facility] CHEM PANEL AGAP 13.0 meq/L 10.0 - 20.0 03/20/2016 [facility] CHEM PANEL Phosphorus 3.2 mg/dL 2.5 - 4.5 03/20/2016 [facility] HEMATOLOGY MPV 9.4 fL 7.4 - 10.4 03/20/2016 [facility] HEMATOLOGY RDW 13.7 % 11.5 - 14.5 03/20/2016 [facility] HEMATOLOGY MCHC 34.9 g/dL 32.0 - 36.0 03/20/2016 [facility] HEMATOLOGY Platelet 178 K/CMM 133 - 450 03/20/2016 [facility] HEMATOLOGY MCH 30.1 pg 27.0 - 31.0 03/20/2016 [facility] HEMATOLOGY RBC 2.92 M/CMM 4.70 - 6.10 03/20/2016 [facility] HEMATOLOGY Hgb 8.8 g/dL 14.0 - 18.0 03/20/2016 [facility] HEMATOLOGY Hct 25.1 % 42.0 - 54.0 03/20/2016 [facility] HEMATOLOGY MCV 86.2 fL 80.0 - 94.0 03/20/2016 [facility] HEMATOLOGY WBC 7.6 K/CMM 3.7 - 10.4 03/20/2016 [facility] HEMATOLOGY Segs-Bands # 4.3 K/CMM 1.5 - 8.1 03/20/2016 [facility] HEMATOLOGY Monocytes # 0.8 K/CMM 0.0 - 0.8 03/20/2016 [facility] HEMATOLOGY Lymphocytes # 2.3 K/CMM 1.0 - 5.5 03/20/2016 [facility] HEMATOLOGY Eosinophils # 0.2 K/CMM 0.0 - 0.5 03/20/2016 [facility] HEMATOLOGY Basophils 0.3 % 0.0 - 1.0 03/20/2016 [facility] HEMATOLOGY Segs 56.9 % 45.0 - 75.0 03/20/2016 [facility] HEMATOLOGY Monocytes 10.6 % 2.0 - 12.0 03/20/2016 [facility] HEMATOLOGY Lymphocytes 29.6 % 20.0 - 40.0 03/20/2016 [facility] HEMATOLOGY Eosinophils 2.6 % 0.0 - 4.0 03/20/2016 [facility] HEMATOLOGY PTT 46.0 s 22.9 - 35.8 03/20/2016 [facility] HEMATOLOGY INR 1.11 0.85 - 1.17 03/20/2016 [facility] HEMATOLOGY PT 14.6 s 12.0 - 14.7 03/20/2016 [facility] Chest 1view DX Chest 1view DX EXAM: XR CHEST 1 VIEW DATE: 03/20/2016 3:00 AM CDT INDICATION: Tube placement/removal/reposition COMPARISON: Chest radiograph yesterday. TECHNIQUE: AP chest FINDINGS: Lines, tubes and hardware: Stable midline sternal wires. Lungs and pleura: Persistent small left apical pneumothorax is seen, unchanged in size. Left retrocardiac atelectasis or consolidation. Heart and mediastinum: Cardiomediastinal silhouette is enlarged but stable. Persistent prominence of the right side of the mediastinum. Chest CT can be considered to document anatomy. Bones: No acute bony abnormality is identified. IMPRESSION: 1. Persistent small left apical pneumothorax which is unchanged in size. 2. No significant changes otherwise. 03/20/2016 - - Read by: Rober Cantu MD Dictated Date/time: 03/20/16 08:39 Electronically Signed by: Rober Cantu MD 03/20/16 08:43 FINAL REPORT [facility] CHEM PANEL eGFR 76 mL/min/1.73m2 03/19/2016 Result Comment: The eGFR is calculated using the CKD-EPI formula. In most young, healthy individuals the eGFR will be >90 mL/min/1.73m2. The eGFR declines with age. An eGFR of 60-89 may be normal in some populations, particularly the elderly, for whom the CKD-EPI formula has not been extensively validated. Use of the eGFR is not recommended in the following populations: Individuals with unstable creatinine concentrations, including patients and those with serious co-morbid conditions. Patients with extremes in muscle mass or diet. The data above are obtained from the National Kidney Disease Education Program (NKDEP) which additionally recommends that when the eGFR is used in patients with extremes of body mass index for purposes of drug dosing, the eGFR should be multiplied by the estimated BMI. [facility] CHEM PANEL Creatinine Lvl 0.96 mg/dL 0.50 - 1.40 03/19/2016 [facility] CHEM PANEL BUN 17 mg/dL 7 - 22 03/19/2016 [facility] CHEM PANEL Glucose Lvl 114 mg/dL 70 - 99 03/19/2016 [facility] CHEM PANEL CO2 25 meq/L 24 - 32 03/19/2016 [facility] CHEM PANEL Calcium Lvl 8.3 mg/dL 8.5 - 10.5 03/19/2016 [facility] CHEM PANEL Chloride Lvl 104 meq/L 95 - 109 03/19/2016 [facility] CHEM PANEL Potassium Lvl 3.7 meq/L 3.5 - 5.1 03/19/2016 [facility] CHEM PANEL Sodium Lvl 138 meq/L 135 - 145 03/19/2016 [facility] CHEM PANEL AGAP 12.7 meq/L 10.0 - 20.0 03/19/2016 [facility] CHEM PANEL Phosphorus 2.7 mg/dL 2.5 - 4.5 03/19/2016 [facility] CHEM PANEL Magnesium Lvl 2.2 mg/dL 1.8 - 2.4 03/19/2016 [facility] HEMATOLOGY Eosinophils # 0.1 K/CMM 0.0 - 0.5 03/19/2016 [facility] HEMATOLOGY Lymphocytes # 1.7 K/CMM 1.0 - 5.5 03/19/2016 [facility] HEMATOLOGY Segs-Bands # 6.0 K/CMM 1.5 - 8.1 03/19/2016 [facility] HEMATOLOGY Monocytes # 0.7 K/CMM 0.0 - 0.8 03/19/2016 [facility] HEMATOLOGY Monocytes 8.8 % 2.0 - 12.0 03/19/2016 [facility] HEMATOLOGY Basophils 0.3 % 0.0 - 1.0 03/19/2016 [facility] HEMATOLOGY Eosinophils 0.8 % 0.0 - 4.0 03/19/2016 [facility] HEMATOLOGY Segs 70.2 % 45.0 - 75.0 03/19/2016 [facility] HEMATOLOGY Lymphocytes 19.9 % 20.0 - 40.0 03/19/2016 [facility] HEMATOLOGY INR 1.07 0.85 - 1.17 03/19/2016 [facility] HEMATOLOGY PT 14.2 s 12.0 - 14.7 03/19/2016 [facility] HEMATOLOGY PTT 39.6 s 22.9 - 35.8 03/19/2016 [facility] HEMATOLOGY RBC 2.96 M/CMM 4.70 - 6.10 03/19/2016 [facility] HEMATOLOGY WBC 8.5 K/CMM 3.7 - 10.4 03/19/2016 [facility] HEMATOLOGY RDW 13.9 % 11.5 - 14.5 03/19/2016 [facility] HEMATOLOGY MCHC 34.0 g/dL 32.0 - 36.0 03/19/2016 [facility] HEMATOLOGY Platelet 153 K/CMM 133 - 450 03/19/2016 [facility] HEMATOLOGY MPV 9.7 fL 7.4 - 10.4 03/19/2016 [facility] HEMATOLOGY Hct 25.6 % 42.0 - 54.0 03/19/2016 [facility] HEMATOLOGY Hgb 8.7 g/dL 14.0 - 18.0 03/19/2016 [facility] HEMATOLOGY MCH 29.4 pg 27.0 - 31.0 03/19/2016 [facility] HEMATOLOGY MCV 86.4 fL 80.0 - 94.0 03/19/2016 [facility] Chest 1view DX Chest 1view DX EXAM: XR CHEST 1 VIEW DATE: 03/19/2016 3:00 AM CDT INDICATION: Tube placement/removal/reposition. FINDINGS: Comparison is made to March 18. The cardiomediastinal silhouette is stable. There is persistent prominence involving the right side of the mediastinum of unclear etiology. This can be further evaluated with a chest CT and/or followed with an upright chest radiograph when clinically feasible. If prior studies are available from another facility which would help to elucidate the etiology of this finding, then that would be very helpful. There is a small left apical pneumothorax. Subsegmental atelectasis is seen in both lung bases. IMPRESSION: No significant change 03/19/2016 - - Read by: Amie Moreno MD Dictated Date/time: 03/19/16 14:26 Electronically Signed by: Amie Moreno MD 03/19/16 14:27 FINAL REPORT [facility] HEMATOLOGY PT 14.8 s 12.0 - 14.7 03/18/2016 [facility] HEMATOLOGY INR 1.13 0.85 - 1.17 03/18/2016 [facility] HEMATOLOGY PTT 44.0 s 22.9 - 35.8 03/18/2016 [facility] Chest 1view DX Chest 1view DX EXAM: XR CHEST 1 VIEW DATE: 03/18/2016 3:00 AM CDT INDICATION: Tube placement/removal/reposition. FINDINGS: Comparison is made to yesterday. The postoperative cardiomediastinal silhouette is stable. The mediastinum is persistently widened, especially on the right side. This can be further evaluated with chest CT and/or followed with an upright chest radiograph when clinically feasible. There is abundant bibasilar subsegmental atelectasis, greater on the left. There is a small residual left hydropneumothorax. IMPRESSION: No significant change from yesterday morning. 03/18/2016 - - Read by: Amie Moreno MD Dictated Date/time: 03/18/16 12:40 Electronically Signed by: Amie Moreno MD 03/18/16 16:37 FINAL REPORT [facility] HEMATOLOGY Heparin Ab(FREDI) Negative (03/17/16 5:10 PM) Negative 03/17/2016 [facility] HEMATOLOGY Pos CO Value 0.442 03/17/2016 [facility] HEMATOLOGY Pat Od Value 0.103 03/17/2016 [facility] Chest 1view DX Chest 1view DX EXAM: XR CHEST 1 VIEW DATE: 03/17/2016 11:00 AM CDT INDICATION: Tube placement/removal/reposition COMPARISON: Chest radiograph 03/17/2016 at 3:24 AM TECHNIQUE: AP chest FINDINGS: Lines, tubes and hardware: Right jugular sheath, left chest tube, and mediastinal drains have been removed. Sternotomy wires are again seen. Lungs and pleura: The costophrenic sulci are sharp without effusions. Persistent small left apical pneumothorax is seen, unchanged in size. There is subsegmental atelectasis in bilateral lung bases. Heart and mediastinum: Cardiomediastinal silhouette is enlarged but stable. Bones: No acute bony abnormality is identified. IMPRESSION: 1. Interval removal of right internal jugular sheath, mediastinal drains, and left chest tube. 2. Persistent small left apical pneumothorax which is unchanged in size. 3. Bibasilar subsegmental atelectasis 03/17/2016 - - This report was dictated by a Linker Up/Fellow. I have personally reviewed the images as well as the Resident's interpretation and agree with the findings. Read by: Joaquín Thayer MD Resident: Joaquín Thayer MD Dictated Date/time: 03/17/16 15:13 Electronically Signed by: Rober Cantu MD 03/17/16 16:14 FINAL REPORT [facility] PARATHYROID PROFILE Ca Norm WB 1.07 mMol/L 1.05 - 1.25 03/17/2016 [facility] PARATHYROID PROFILE Ca Ion WB 1.09 mMol/L 1.05 - 1.25 03/17/2016 [facility] Chest 1view DX Chest 1view DX EXAM: XR CHEST 1 VIEW DATE: 03/17/2016 3:00 AM CDT INDICATION: Tube placement/removal/reposition. FINDINGS: Comparison is made to yesterday. The cardiomediastinal silhouette and postoperative changes are stable. The patient is status post median sternotomy with [address] The Richardson-Dillan catheter has been removed. There is a right jugular sheath in place. Abundant subsegmental atelectasis is seen in both lung bases. The costophrenic sulci are sharp, without effusions. There is a persistent small left apical pneumothorax with a left basal chest tube in place. IMPRESSION: 1. Persistent small left apical pneumothorax with left basal chest tube in place. 2. Low lung volumes with bibasilar subsegmental atelectasis. 03/17/2016 - - Read by: Amie Moreno MD Dictated Date/time: 03/17/16 08:59 Electronically Signed by: Amie Moreno MD 03/17/16 10:57 FINAL REPORT [facility] Chest 1view DX Chest 1view DX EXAM: XR CHEST 1 VIEW DATE: 03/16/2016 3:00 AM CDT INDICATION: Tube placement/removal/reposition. FINDINGS: Comparison is made to March 15. The cardiomediastinal silhouette is prominent but stable. Postoperative changes are stable. The patient has been extubated. Other life-support lines and tubes remain in place. There is subsegmental atelectasis in both lung bases. No pleural effusions are identified. A left apical pneumothorax has increased, with the top of the left lung at the level of the left posterior 3rd intercostal space. IMPRESSION: 1. Increased left apical pneumothorax. 2. Bibasilar subsegmental atelectasis. 3. Extubated. 03/16/2016 - - Read by: Amie Moreno MD Dictated Date/time: 03/16/16 09:18 Electronically Signed by: Amie Moreno MD 03/16/16 11:13 FINAL REPORT [facility] CHEM PANEL Lactic Acid Lvl 7.2 mMol/L 0.5 - 2.2 03/16/2016 Result Comment: Critical Result(s) called to Marc Jett at 03/16/2016 00:41 by NT. Read back OK. [facility] HEMATOLOGY Bands 1.0 % 0.0 - 11.0 03/16/2016 [facility] HEMATOLOGY RBC Morph Normal (03/15/16 11:16 PM) 03/16/2016 [facility] HEMATOLOGY [employer] occasional 03/16/2016 [facility] HEMATOLOGY Atypical Lymphs 0.0 % <=0.0 % 03/16/2016 [facility] PARATHYROID PROFILE Ca Ion WB 1.03 mMol/L 1.05 - 1.25 03/16/2016 [facility] PARATHYROID PROFILE Ca Norm WB 1.02 mMol/L 1.05 - 1.25 03/16/2016 [facility] CHEM PANEL Lactic Acid Lvl 4.8 mMol/L 0.5 - 2.2 03/15/2016 Result Comment: Critical Result(s) called to devyn jett at 03/15/2016 20:04 by nk. Read back OK. [facility] CHEM PANEL Lactic Acid Lvl 4.9 mMol/L 0.5 - 2.2 03/15/2016 Result Comment: Critical Result(s) called to Evelina Saucedo at 03/15/2016 15:41 by KW. Read back OK. [facility] PARATHYROID PROFILE Ca Norm WB 1.02 mMol/L 1.05 - 1.25 03/15/2016 [facility] PARATHYROID PROFILE Ca Ion WB 1.06 mMol/L 1.05 - 1.25 03/15/2016 [facility] Chest 1view DX Chest 1view DX EXAM: XR CHEST 1 VIEW DATE: 03/15/2016 1:40 PM CDT INDICATION: Tube placement/removal/reposition OTHER CLINICAL INFORMATION: Status post coronary artery bypass graft. COMPARISON: 03/15/2016 at 0625. TECHNIQUE: AP chest FINDINGS: Lines and tubes: ET tube tip is 3.5 cm above the rochelle. Right IJ approach Richardson-Dillan catheter with its tip overlying the proximal right main pulmonary artery. Inferior approach mediastinal drains. Left basal chest tube. Lungs and pleura: There is low lung volumes with subsegmental atelectasis in the lung bases. The costophrenic sulci are sharp. No pneumothorax given the limitation of a semiupright exam. Heart and mediastinum: Heart size is normal. Bones and Soft Tissues: Intact midline sternal wires. IMPRESSION: 1. Postoperative changes of the chest. 2. Bibasilar atelectasis. 3. The previously described right paratracheal density is less conspicuous. 03/15/2016 - - Read by: Rober Cantu MD Dictated Date/time: 03/15/16 16:33 Electronically Signed by: Rober Cantu MD 03/15/16 16:46 FINAL REPORT [facility] BLOOD BANK RESULTS ABO/Rh O POS 03/15/2016 [facility] BLOOD BANK RESULTS Antibody Scrn Negative (03/15/16 6:14 AM) 03/15/2016 [facility] CHEM PANEL A/G Ratio 1.3 0.7 - 1.6 03/15/2016 [facility] CHEM PANEL Globulin 3.2 g/dL 2.7 - 4.2 03/15/2016 [facility] CHEM PANEL B/C Ratio 11 6 - 25 03/15/2016 [facility] CHEM PANEL AST 13 unit/L 0 - 37 03/15/2016 [facility] CHEM PANEL Albumin Lvl 4.1 g/dL 3.5 - 5.0 03/15/2016 [facility] CHEM PANEL Total Protein 7.3 g/dL 6.4 - 8.4 03/15/2016 [facility] CHEM PANEL ALT 29 unit/L 0 - 65 03/15/2016 [facility] CHEM PANEL Bili Total 0.7 mg/dL 0.2 - 1.3 03/15/2016 [facility] CHEM PANEL Alk Phos 70 unit/L 39 - 136 03/15/2016 [facility] Chest 1view DX Chest 1view DX EXAM: XR CHEST 1 VIEW DATE: 03/14/2016 1:33 PM CDT INDICATION: Heart failure COMPARISON: None FINDINGS: No significant cardiomegaly or pulmonary venous congestion is identified. There is mild biapical scarring, asymmetric to the left. No pneumothorax is identified. Minimal subsegmental atelectasis is present in the left lung base. There is prominence of the right paratracheal stripe. IMPRESSION: 1. There is a vague right paratracheal density of uncertain significance. Repeat 2 view chest x-ray is recommended. If finding persists, CT chest could be obtained for further evaluation. 2. Minimal subsegmental atelectasis left lung base. 03/15/2016 - - This report was dictated by a Linker Up/Fellow. I have personally reviewed the images as well as the Resident's interpretation and agree with the findings. Read by: Otoniel Alexandra (Fellow) Resident: Otoniel Alexandra (Fellow) Dictated Date/time: 03/15/16 09:40 Electronically Signed by: Rober Cantu MD 03/15/16 11:54 FINAL REPORT [facility] BLOOD BANK RESULTS FFP product Product available (03/14/16 10:47 PM) 03/15/2016 [facility] BLOOD BANK RESULTS RBC product Product available (03/14/16 10:47 PM) 03/15/2016 [facility] BLOOD BANK RESULTS Platelet product Product available (03/14/16 1:33 PM) 03/14/2016 [facility] Carotid artery Doppler bilat US Carotid artery Doppler bilat US Study: Carotid artery Doppler bilat US ; Age: 75 years y/o Male Clinical Indication: syncope, angina, cardiac murmur; Comparison: None TECHNIQUE: Gutierrez-scale, color Doppler and spectral Doppler of the carotid arteries was performed. Any reported ICA stenoses indirectly reference the distal internal carotid diameter as the denominator for the stenosis measurement, utilizing consensus panel criteria. FINDINGS: RIGHT: Calcific atherosclerotic plaque formation is seen at the carotid bifurcation. No significant stenosis by gutierrez scale or color Doppler evaluation. Spectral analysis reveals mild broadening due to turbulence. ICA PSV 117 cm/sec CCA PSV 103 cm/sec ICA/CCA ratio 1.1 Vertebral flow is antegrade. External carotid artery is patent. LEFT: Atherosclerotic plaque formation at the carotid bifurcation. No significant stenosis. Turbulence of bowel plaque in the proximal internal carotid artery with spectral broadening. ICA PSV 116 cm/sec CCA PSV 114 cm/sec ICA/CCA ratio 1.0 Vertebral flow is antegrade. External carotid artery is patent. IMPRESSION: 1. RIGHT: ICA stenosis <50 % by velocity criteria. 1. LEFT: ICA stenosis <50 % by velocity criteria. Consensus panel Doppler US criteria for diagnosis of ICA stenosis: Stenosis (%) ICA PSV (cm/sec) ICA/CCA ratio <50 <125 <2.0 50-69 125-230 2.0-4.0 >70 but less than >230 >4.0 near occlusion Near occlusion High, low, or Variable undetectable SL: [id number] 02/25/2016 - - Read by: Juan Miguel Uriarte MD Dictated Date/time: 02/25/16 12:28 Electronically Signed by: Juan Miguel Uriarte MD 02/25/16 12:30 FINAL REPORT [facility] BLOOD BANK RESULTS Antibody Scrn Negative (02/16/16 11:45 AM) 02/16/2016 [facility] BLOOD BANK RESULTS ABO/Rh O POS 02/16/2016 [facility] CHEM PANEL Magnesium Lvl 2.3 mg/dL 1.8 - 2.4 02/16/2016 [facility] CHEM PANEL Phosphorus 3.7 mg/dL 2.5 - 4.5 02/16/2016 [facility] ELECTROLYTES AGAP 11.5 meq/L 10.0 - 20.0 02/16/2016 [facility] ELECTROLYTES eGFR 49 mL/min/1.73m2 02/16/2016 Result Comment: The eGFR is calculated using the CKD-EPI formula. In most young, healthy individuals the eGFR will be >90 mL/min/1.73m2. The eGFR declines with age. An eGFR of 60-89 may be normal in some populations, particularly the elderly, for whom the CKD-EPI formula has not been extensively validated. Use of the eGFR is not recommended in the following populations: Individuals with unstable creatinine concentrations, including patients and those with serious co-morbid conditions. Patients with extremes in muscle mass or diet. The data above are obtained from the National Kidney Disease Education Program (NKDEP) which additionally recommends that when the eGFR is used in patients with extremes of body mass index for purposes of drug dosing, the eGFR should be multiplied by the estimated BMI. [facility] ELECTROLYTES Potassium Lvl 4.5 meq/L 3.5 - 5.1 02/16/2016 [facility] ELECTROLYTES Chloride Lvl 106 meq/L 95 - 109 02/16/2016 [facility] ELECTROLYTES CO2 28 meq/L 24 - 32 02/16/2016 [facility] ELECTROLYTES Calcium Lvl 8.8 mg/dL 8.5 - 10.5 02/16/2016 [facility] ELECTROLYTES Glucose Lvl 116 mg/dL 70 - 99 02/16/2016 [facility] ELECTROLYTES Creatinine Lvl 1.39 mg/dL 0.50 - 1.40 02/16/2016 [facility] ELECTROLYTES Sodium Lvl 141 meq/L 135 - 145 02/16/2016 [facility] ELECTROLYTES BUN 17 mg/dL 7 - 22 02/16/2016 [facility] HEMATOLOGY INR 1.08 0.85 - 1.17 02/16/2016 [facility] HEMATOLOGY PTT 34.3 s 22.9 - 35.8 02/16/2016 [facility] HEMATOLOGY PT 14.3 s 12.0 - 14.7 02/16/2016 [facility] HEMATOLOGY Eosinophils # 0.1 K/CMM 0.0 - 0.5 02/16/2016 [facility] HEMATOLOGY Lymphocytes # 1.9 K/CMM 1.0 - 5.5 02/16/2016 [facility] HEMATOLOGY Basophils 0.4 % 0.0 - 1.0 02/16/2016 [facility] HEMATOLOGY Eosinophils 1.9 % 0.0 - 4.0 02/16/2016 [facility] HEMATOLOGY Monocytes # 0.4 K/CMM 0.0 - 0.8 02/16/2016 [facility] HEMATOLOGY Segs 55.1 % 45.0 - 75.0 02/16/2016 [facility] HEMATOLOGY Segs-Bands # 3.0 K/CMM 1.5 - 8.1 02/16/2016 [facility] HEMATOLOGY Monocytes 7.7 % 2.0 - 12.0 02/16/2016 [facility] HEMATOLOGY Lymphocytes 34.9 % 20.0 - 40.0 02/16/2016 [facility] HEMATOLOGY Hct 42.8 % 42.0 - 54.0 02/16/2016 [facility] HEMATOLOGY MCV 85.8 fL 80.0 - 94.0 02/16/2016 [facility] HEMATOLOGY MCH 29.0 pg 27.0 - 31.0 02/16/2016 [facility] HEMATOLOGY MCHC 33.9 g/dL 32.0 - 36.0 02/16/2016 [facility] HEMATOLOGY RDW 13.7 % 11.5 - 14.5 02/16/2016 [facility] HEMATOLOGY RBC 4.99 M/CMM 4.70 - 6.10 02/16/2016 [facility] HEMATOLOGY Hgb 14.5 g/dL 14.0 - 18.0 02/16/2016 [facility] HEMATOLOGY WBC 5.4 K/CMM 3.7 - 10.4 02/16/2016 [facility] HEMATOLOGY Platelet 174 K/CMM 133 - 450 02/16/2016 [facility] HEMATOLOGY MPV 9.6 fL 7.4 - 10.4 02/16/2016 [facility] Vital Signs Vital Sign Value Date Comments Source BMI Calculated 26.64 06/23/2016 [facility] Weight 81.818 06/23/2016 [facility] Height 175.26 cm 06/23/2016 [facility] Height 175.26 cm 05/22/2016 [facility] BMI Calculated 26.64 05/22/2016 [facility] Weight 81.818 05/22/2016 [facility] Height 175.26 cm 04/21/2016 [facility] BMI Calculated 26.64 04/21/2016 [facility] Weight 81.818 04/21/2016 [facility] Height 175.26 cm 03/30/2016 [facility] Weight 80.625 03/30/2016 [facility] BMI Calculated 26.25 03/30/2016 [facility] Temperature Oral (F) 97.9 F 03/30/2016 [facility] Respitory Rate 16 03/30/2016 [facility] Heart Rate 79 03/30/2016 [facility] Systolic (mm Hg) 144 03/30/2016 [facility] Diastolic (mm Hg) 78 03/30/2016 [facility] Weight 80.909 03/30/2016 [facility] BMI Calculated 26.34 03/30/2016 [facility] Height 175.26 cm 03/30/2016 [facility] Systolic (mm Hg) 108 03/21/2016 [facility] Diastolic (mm Hg) 54 03/21/2016 [facility] Respitory Rate 21 03/21/2016 [facility] Temperature Oral (F) 98.4 F 03/21/2016 [facility] Respitory Rate 32 03/21/2016 [facility] Systolic (mm Hg) 99 03/21/2016 [facility] Diastolic (mm Hg) 59 03/21/2016 [facility] Respitory Rate 18 03/21/2016 [facility] Systolic (mm Hg) 118 03/21/2016 [facility] Diastolic (mm Hg) 58 03/21/2016 [facility] Temperature Oral (F) 98.2 F 03/21/2016 [facility] Temperature Oral (F) 96.5 F 03/20/2016 [facility] Height 175.26 cm 03/16/2016 [facility] Weight 86.3 03/15/2016 [facility] Height 172.72 cm 03/15/2016 [facility] BMI Calculated 28.93 03/15/2016 [facility] Weight 86.3 03/15/2016 [facility] Weight 86.3 03/15/2016 [facility] Heart Rate 74 03/15/2016 [facility] Height 175.26 cm 02/29/2016 [facility] Weight 86.364 02/29/2016 [facility] BMI Calculated 28.12 02/29/2016 [facility] Height 175.26 cm 02/23/2016 [facility] BMI Calculated 28 02/23/2016 [facility] Weight 86.007 02/23/2016 [facility] Systolic (mm Hg) 132 02/23/2016 [facility] Diastolic (mm Hg) 77 02/23/2016 [facility] Temperature Oral (F) 97.4 F 02/23/2016 [facility] Respitory Rate 18 02/23/2016 [facility] Heart Rate 66 02/23/2016 [facility] Systolic (mm Hg) 151 02/17/2016 [facility] Diastolic (mm Hg) 75 02/17/2016 [facility] Systolic (mm Hg) 111 02/17/2016 [facility] Diastolic (mm Hg) 64 02/17/2016 [facility] Systolic (mm Hg) 111 02/17/2016 [facility] Diastolic (mm Hg) 64 02/17/2016 [facility] Respitory Rate 19 02/16/2016 [facility] Respitory Rate 18 02/16/2016 [facility] Respitory Rate 18 02/16/2016 [facility] Height 175.26 cm 02/16/2016 [facility] Weight 86.364 02/16/2016 [facility] BMI Calculated 28.12 02/16/2016 [facility] Encounters Location Location Details Encounter Type Encounter Number Reason For Visit Attending Provider ADM Date DC Date Status Source [facility] Bedded Outpatient [id number] [address] Nascimbene 02/16/2016 02/17/2016 [facility] Outpatient [id number] Oracio Gregoric 02/23/2016 02/24/2016 [facility] Outpatient [id number] Oracio Gregoric 02/29/2016 03/01/2016 [facility] Inpatient [id number] chikikacey Shineay 03/15/2016 03/21/2016 [facility] Outpatient [id number] Soma Jyothula 03/30/2016 03/31/2016 [id number] Soma Jyothula 03/30/2016 03/31/2016 [facility] Recurring [id number] [address] Nascimbene 04/21/2016 05/21/2016 [facility] Recurring [id number] [address] Nascimbene 05/22/2016 06/21/2016 [facility] Recurring [id number] [address] Nascimbene 06/23/2016 07/23/2016 [facility] Procedures Procedure Code Date Perfomer Comments Source Cardiac catheterization, left heart<sup>1</sup> [id number] stent to LAD [facility] Cardiac catheterization, left heart<sup>1</sup> [id number] stent to LAD [facility] Cardiac catheterization, left heart<sup>1</sup> [id number] stent to LAD GARY Osullivan
--- OUTSIDE RECORDS SUMMARY | 2018-08-21 12:25 | XMS REPORT | Summary of Care ---
Author Author [facility] Organization [facility] Address Unknown Phone Unavailable Encounter CADENCE Gordon(SONIA) [id number] Date(s): 06/23/16 - 07/22/16 [facility] [address] [place] [address]- Discharge Disposition: Home or Self Care Attending Physician: Lane Palacio MD Referring Physician: Lane Palacio MD Vital Signs Most recent to 1 oldest [Reference Range]: Height 175.26 cm (06/23/16 4:34 PM) Weight 81.818 kg (06/23/16 4:34 PM) Body Mass Index 26.64 m2 (06/23/16 4:34 PM) Problem List Condition Effective Dates Status Health Status Informant Angina(Confirmed) Resolved Angina(Confirmed) Resolved CAD - Coronary Resolved artery disease(Confirmed) Coronary artery Resolved disease(Confirmed) Diabetes(Confirmed) Resolved GERD Resolved (gastroesophageal reflux disease)(Confirmed) HLD Resolved (hyperlipidemia)(Con firmed) HTN Resolved (hypertension)(Confi rmed) Hyperlipidemia(Confi Resolved rmed) Hypertension(Confirm Resolved ed) Left ventricular Resolved hypertrophy(Confirme d) Murmur(Confirmed) Resolved Allergies, Adverse Reactions, Alerts Substance Reaction Severity Status NKDA Active Medications No data available for this section Results No data available for this section Immunizations Given and Recorded Vaccine Date Status Refusal Reason pneumococcal 23-valent vaccine 03/17/06 Given Procedures Procedure Date Related Diagnosis Body Site Cardiac catheterization, left heart1 1stent to LAD Social History Social History Type Response Smoking Status Never smoker; Exposure to Tobacco Smoke None; Cigarette Smoking Last 365 Days No; Reg Smoking Cessation Counseling No Assessment and Plan No data available for this section
--- OUTSIDE RECORDS SUMMARY | 2018-08-21 12:25 | XMS REPORT | Summary of Care ---
Author Author [facility] Organization [facility] Address Unknown Phone Unavailable Encounter CADENCE Gordon(SONIA) [id number] Date(s): 04/21/16 - 05/20/16 [facility] [address] [place] [address]- [phone] Discharge Disposition: Home or Self Care Attending Physician: Lane Palacio MD Referring Physician: Lane Palacio MD Vital Signs Most recent to 1 oldest [Reference Range]: Height 175.26 cm (04/21/16 1:51 PM) Weight 81.818 kg (04/21/16 1:51 PM) Body Mass Index 26.64 m2 (04/21/16 1:51 PM) Problem List Condition Effective Dates Status [...]
--- OUTSIDE RECORDS SUMMARY | 2018-08-21 12:25 | XMS REPORT | Summary of Care ---
Author Author [facility] Organization [facility] Address Unknown Phone Unavailable Encounter CADENCE Gordon(SONIA) [id number] Date(s): 02/16/16 - 02/16/16 [facility] [address] [employer] provided by [facility] [place] [address]- Discharge Disposition: Home Attending Physician: Lane Palacio MD Admitting Physician: Laen Palacio MD Vital Signs 1 2 3 Most recent to oldest [Reference Range]: 175.26 cm (02/16/16 11:22 AM) Height 151/75 mmHg *HI* (02/16/16 8:03 PM) 111/64 mmHg (02/16/16 7:45 PM) 111/64 mmHg (02/16/16 7:30 PM) Blood Pressure [90-140/60-90 mmHg] 19 BRMIN (02/16/16 6:45 PM) 18 BRMIN (02/16/16 6:30 PM) 18 BRMIN (02/16/16 6:15 PM) Respiratory Rate [14-20 BRMIN] 86.364 kg (02/16/16 11:22 AM) Weight 28.12 m2 (02/16/16 11:22 AM) Body Mass Index Problem List Condition Effective Dates Status Health Status Informant Angina(Confirmed) Resolved CAD - Coronary Resolved artery disease(Confirmed) GERD Resolved (gastroesophageal reflux disease)(Confirmed) HLD Resolved (hyperlipidemia)(Con firmed) HTN Resolved (hypertension)(Confi rmed) Left ventricular Resolved hypertrophy(Confirme d) Murmur(Confirmed) Resolved Allergies, Adverse Reactions, Alerts Substance Reaction Severity Status NKDA Active Medications acetaminophen-codeine #3 1 tab, Route: PO, Drug Form: TAB, Dosing Weight 86.364, kg, Q4H, PRN Pain Score 4-6, Start date: 02/16/16 17:18:00 CDT, Duration: 30 day, Stop date: 03/17/16 17 :17:00 CDT Notes: Do not exceed 4gm/day of acetaminophen. (Same as: Tylenol with Codeine # 3) Start Date: 02/16/16 Stop Date: 02/17/16 Status: Discontinued isosorbide mononitrate 60 mg oral tablet, extended release 60 mg=1 tab, PO, QAM, # 90 tab, 3 Refill(s) Start Date: 02/16/16 Status: Ordered metFORMIN 500 mg oral tablet 500 mg=1 tab, PO, BID-Meals, # 180 tab, 1 Refill(s) Start Date: 02/16/16 Status: Ordered Prostate 2.4 1 cap, PO, Daily, 0 Refill(s) Start Date: 02/16/16 Status: Ordered Ranexa 500 mg oral tablet, extended release 500 mg=1 tab, PO, BID, # 60 tab, 0 Refill(s) Start Date: 02/16/16 Status: Ordered Sodium Chloride 0.9% (Bolus) IV 250 mL, 250 ml/hr, Infuse Over: 1 hr, Route: IV, 250, Drug form: INJ, ONCE, Dosi ng Weight 86.364 kg, Start date: 02/16/16 17:18:00 CDT, Duration: 1 doses or tino es, Stop date: 02/16/16 17:18:00 CDT Start Date: 02/16/16 Stop Date: 02/16/16 Status: Ordered sodium chloride 0.9% 1000 ml INJ 750 mL 750 mL, Rate: 75 ml/hr, Infuse over: 10 hr, Route: IV, Dosing Weight 86.364 kg, Total Volume: 750, Start date: 02/16/16 17:18:00 CDT, Duration: 10 hr, Stop date : 02/17/16 3:17:00 CDT Start Date: 02/16/16 Stop Date: 02/17/16 Status: Completed tamsulosin 0.4 mg oral capsule 0.4 mg=1 cap, PO, Daily, # 90 cap, 0 Refill(s) Start Date: 02/16/16 Status: Ordered Results BLOOD BANK RESULTS Most recent to 1 oldest [Reference Range]: ABO/Rh O POS *Unknown* (02/16/16 11:45 AM) Antibody Scrn Negative (02/16/16 11:45 AM) ELECTROLYTES Most recent to 1 oldest [Reference Range]: Sodium Lvl [135-145 141 mEq/L mEq/L] (02/16/16 11:45 AM) Potassium Lvl 4.5 mEq/L [3.5-5.1 mEq/L] (02/16/16 11:45 AM) Chloride Lvl [95-109 106 mEq/L mEq/L] (02/16/16 11:45 AM) CO2 [24-32 mEq/L] 28 mEq/L (02/16/16 11:45 AM) AGAP [10.0-20.0 11.5 mEq/L mEq/L] (02/16/16 11:45 AM) CHEM PANEL Most recent to 1 oldest [Reference Range]: Creatinine Lvl 1.39 mg/dL [0.50-1.40 mg/dL] (02/16/16 11:45 AM) eGFR 49 mL/min/1.73m2 1 *NA* (02/16/16 11:45 AM) BUN [7-22 mg/dL] 17 mg/dL (02/16/16 11:45 AM) Glucose Lvl [70-99 116 mg/dL mg/dL] *HI* (02/16/16 11:45 AM) Calcium Lvl 8.8 mg/dL [8.5-10.5 mg/dL] (02/16/16 11:45 AM) Phosphorus [2.5-4.5 3.7 mg/dL mg/dL] (02/16/16 11:45 AM) Magnesium Lvl 2.3 mg/dL [1.8-2.4 mg/dL] (02/16/16 11:45 AM) 1Result Comment: The eGFR is calculated using the [...] from the National Kidney Disease Education Program ( NKDEP) which additionally recommends that when the eGFR is used in patients with extremes of body mass index for purposes of drug dosing, the eGFR should be mul tiplied by the estimated BMI. HEMATOLOGY Most recent to 1 oldest [Reference Range]: WBC [3.7-10.4 K/CMM] 5.4 K/CMM (02/16/16 11:45 AM) RBC [4.70-6.10 4.99 M/CMM M/CMM] (02/16/16 11:45 AM) Hgb [14.0-18.0 g/dL] 14.5 g/dL (02/16/16 11:45 AM) Hct [42.0-54.0 %] 42.8 % (02/16/16 11:45 AM) MCV [80.0-94.0 fL] 85.8 fL (02/16/16 11:45 AM) MCH [27.0-31.0 pg] 29.0 pg (02/16/16 11:45 AM) MCHC [32.0-36.0 33.9 g/dL g/dL] (02/16/16 11:45 AM) RDW [11.5-14.5 %] 13.7 % (02/16/16 11:45 AM) Platelet [133-450 174 K/CMM K/CMM] (02/16/16 11:45 AM) MPV [7.4-10.4 fL] 9.6 fL (02/16/16 11:45 AM) Segs [45.0-75.0 %] 55.1 % (02/16/16 11:45 AM) Lymphocytes 34.9 % [20.0-40.0 %] (02/16/16 11:45 AM) Monocytes [2.0-12.0 7.7 % %] (02/16/16 11:45 AM) Eosinophils [0.0-4.0 1.9 % %] (02/16/16 11:45 AM) Basophils [0.0-1.0 0.4 % %] (02/16/16 11:45 AM) Segs-Bands # 3.0 K/CMM [1.5-8.1 K/CMM] (02/16/16 11:45 AM) Lymphocytes # 1.9 K/CMM [1.0-5.5 K/CMM] (02/16/16 11:45 AM) Monocytes # [0.0-0.8 0.4 K/CMM K/CMM] (02/16/16 11:45 AM) Eosinophils # 0.1 K/CMM [0.0-0.5 K/CMM] (02/16/16 11:45 AM) PT [12.0-14.7 14.3 seconds seconds] (02/16/16 11:45 AM) INR [0.85-1.17] 1.08 (02/16/16 11:45 AM) PTT [22.9-35.8 34.3 seconds seconds] (02/16/16 11:45 AM) Immunizations Given and Recorded Vaccine Date Status [...]
--- OUTSIDE RECORDS SUMMARY | 2018-08-21 12:25 | XMS REPORT | Summary of Care ---
Author Author [facility] Organization [facility] Address Unknown Phone Unavailable Encounter CADENCE Gordon(SONIA) [id number] Date(s): 05/22/16 - 06/20/16 [facility] [address] [place] [address]- Discharge Disposition: Home or Self Care Attending Physician: Lane Palacio MD Referring Physician: Lane Palacio MD Vital Signs Most recent to 1 oldest [Reference Range]: Height 175.26 cm (05/22/16 1:10 PM) Weight 81.818 kg (05/22/16 1:10 PM) Body Mass Index 26.64 m2 (05/22/16 1:10 PM) Problem List Condition Effective Dates Status [...]
--- OUTSIDE RECORDS SUMMARY | 2018-08-21 12:25 | XMS REPORT | Summary of Care ---
Author Author [facility] Organization [facility] Address Unknown Phone Unavailable Encounter CADENCE Gordon(SONIA) [id number] Date(s): 02/29/16 - 02/29/16 [facility] [address] [place] [address]- [phone] Discharge Disposition: Home or Self Care Attending Physician: Oracio Boyd MD Referring Physician: Oracio Boyd MD Vital Signs Most recent to 1 oldest [Reference Range]: Height 175.26 cm (02/29/16 2:43 PM) Weight 86.364 kg (02/29/16 2:43 PM) Body Mass Index 28.12 m2 (02/29/16 2:43 PM) Problem List Condition Effective Dates Status [...]
--- OUTSIDE RECORDS SUMMARY | 2018-08-21 12:25 | XMS REPORT | Summary of Care ---
Author Author [facility] Organization [facility] Address Unknown Phone Unavailable Encounter CADENCE Gordon(SONIA) [id number] Date(s): 03/30/16 - 03/30/16 [facility] [address], [address] [place], [place] [address] Discharge Disposition: Home or Self Care Attending Physician: Ebonie Low MD Referring Physician: Apollo Welch Vital Signs Most recent to 1 2 oldest [Reference Range]: Height 175.26 cm 175.26 cm (03/30/16 3:48 PM) (03/30/16 1:28 PM) Temperature Oral 97.9 DegF [96.4-99.1 DegF] (03/30/16 3:48 PM) Blood Pressure 144/78 mmHg [90-140/60-90 mmHg] *HI* (03/30/16 3:48 PM) Respiratory Rate 16 BRMIN [14-20 BRMIN] (03/30/16 3:48 PM) Peripheral Pulse 79 bpm Rate [60-100 bpm] (03/30/16 3:48 PM) Weight 80.625 kg 80.909 kg (03/30/16 3:48 PM) (03/30/16 1:28 PM) Body Mass Index 26.25 m2 26.34 m2 (03/30/16 3:48 PM) (03/30/16 1:28 PM) Problem List Condition Effective Dates Status [...] Reaction Severity Status NKDA Active Medications No Known Medications Results No data available for this section [...]
--- OUTSIDE RECORDS SUMMARY | 2018-08-21 12:25 | XMS REPORT | Summary of Care ---
Author Author [facility] Organization [facility] Address Unknown Phone Unavailable Encounter HQ Barbra_nelly(FIN) [id number] Date(s): 03/30/16 - 03/30/16 [facility] [address] [place] [phone] Discharge Disposition: Home or Self Care Attending Physician: Ebonie Low MD Vital Signs No data available for this section Problem List Condition Effective Dates Status Health [...]
--- OUTSIDE RECORDS SUMMARY | 2018-08-21 12:25 | XMS REPORT | Summary of Care ---
Author Author [facility] Organization [facility] Address Unknown Phone Unavailable Encounter HQ Heidi(SONIA) [id number] Date(s): 03/15/16 - 03/21/16 [facility] [address] [employer] provided by [facility] [place] [address]- Discharge Disposition: Home or Self Care Attending Physician: Bria Smith MD Admitting Physician: Bria Smith MD Referring Physician: Bria Smith MD Vital Signs 1 2 3 Most recent to oldest [Reference Range]: 175.26 cm (03/16/16 5:16 AM) 172.72 cm (03/15/16 3:00 PM) Height 85.994 kg (03/21/16 5:09 AM) 86.108 kg (03/20/16 5:15 AM) 86.08 kg (03/19/16 6:24 AM) Current Weight 98.4 DegF (03/21/16 12:03 PM) 98.2 DegF (03/21/16 5:30 AM) 96.5 DegF (03/20/16 4:00 PM) Temperature Oral [96.4-99.1 DegF] 108/54 mmHg (03/21/16 2:00 PM) 99/59 mmHg (03/21/16 12:03 PM) 118/58 mmHg (03/21/16 8:30 AM) Blood Pressure [90-140/60-90 mmHg] 21 BRMIN *HI* (03/21/16 2:00 PM) 32 BRMIN *HI* (03/21/16 12:03 PM) 18 BRMIN (03/21/16 8:30 AM) Respiratory Rate [14-20 BRMIN] 74 bpm (03/15/16 6:30 AM) Peripheral Pulse Rate [60-100 bpm] 86.3 kg (03/15/16 4:24 PM) 86.3 kg (03/15/16 3:00 PM) 86.3 kg (03/15/16 9:37 AM) Weight 28.93 m2 (03/15/16 3:00 PM) Body Mass Index Problem List Condition Effective [...] Substance Reaction Severity Status NKDA Active Medications acetaminophen 650 mg, 2 tab, Route: PO, Drug form: TAB, Q4H, Dosing Weight 86.3, kg, PRN Pain 1-3/Temp > 100.4 F, Start date: 03/15/16 13:40:00 CDT, Duration: 30 day, Stop date: 04/14/16 13:39:00 CDT Notes: Do not exceed 4 gm/day. (Same as: Tylenol) Start Date: 03/15/16 Stop Date: 03/21/16 Status: Discontinued acetaminophen 650 mg, 1 supp, Route: TN, Drug form: SUPP, Q4H, Dosing Weight 86.3, kg, PRN Jeanine n Score 1-3, Start date: 03/15/16 13:40:00 CDT, Duration: 30 day, Stop date: 09/28 13:39:00 CDT Notes: Max vcixijknwgtmy=3203 mg/day (4 gm/day). (Same as: Tylenol) Start Date: 03/15/16 Stop Date: 03/21/16 Status: Discontinued acetaminophen-hydrocodone 325 mg-10 mg oral tablet 2 tab, Route: PO, Drug Form: TAB, Dosing Weight 86.3, kg, Q4H, PRN Pain Score 4- 6, Start date: 03/15/16 13:40:00 CDT, Duration: 30 day, Stop date: 04/14/16 13:3 9:00 CDT Notes: Do not exceed 4gm/day of acetaminophen. (Same as: Bradley 325/10) Start Date: 03/15/16 Stop Date: 03/21/16 Status: Discontinued acetaminophen-hydrocodone 325 mg-10 mg oral tablet 1 tab, Route: PO, Drug Form: TAB, Dosing Weight 86.3, kg, Q4H, PRN Pain Score 1- 3, Start date: 03/15/16 13:40:00 CDT, Duration: 30 day, Stop date: 04/14/16 13:3 9:00 CDT Notes: Do not exceed 4gm/day of acetaminophen. (Same as: Bradley 325/10) Start Date: 03/15/16 Stop Date: 03/21/16 Status: Discontinued albumin human 25% intravenous solution 25 gm, 100 mL, Route: IVPB, Drug form: INJ, ONCE, Dosing Weight 86.3, kg, Start date: 03/15/16 17:46:00 CDT, Stop date: 03/15/16 17:46:00 CDT Notes: Lot #: Mfg: (Same as: Plasbumin-25)"blood pr oduct derivative"WASTE: F/P - Red; E -Red MEDICATION WASTE Product Size: 25 gmProduct Wasted: _0_ gm Start Date: 03/15/16 Stop Date: 03/15/16 Status: Completed albumin human 25% intravenous solution 25 gm, 100 mL, Route: IVPB, Drug form: INJ, ONCE, Dosing Weight 86.3, kg, Start date: 03/15/16 18:09:00 CDT, Stop date: 03/15/16 18:09:00 CDT Notes: Lot #: Mfg: (Same as: Plasbumin-25)"blood pr oduct derivative"WASTE: F/P - Red; E -Red MEDICATION WASTE Product Size: 25 gmProduct Wasted: _0_ gm Start Date: 03/15/16 Stop Date: 03/15/16 Status: Completed albumin human 5% intravenous solution 12.5 gm, 250 mL, Route: IV, Drug Form: INJ, Dosing Weight 86.3, kg, ONCE, Start date: 03/15/16 19:19:00 CDT, Stop date: 03/15/16 19:19:00 CDT Notes: LOT#: Mfg: WASTE: F/P - Red; E -Red (Same a s: Albuminar)"blood product derivative" Start Date: 03/15/16 Stop Date: 03/15/16 Status: Completed aspirin 81 mg, 1 tab, Route: PO, Drug form: ECTAB, Daily, Dosing Weight 86.364, kg, Star t date: 03/17/16 9:00:00 CDT, Stop date: 04/15/16 9:00:00 CDT Notes: Do not crush or chew.(Same As: Ecotrin) Start Date: 03/17/16 Stop Date: 03/21/16 Status: Discontinued aspirin 325 mg, 1 tab, Route: NG, Drug form: TAB, Daily, Dosing Weight 86.364, kg, Start date: 03/16/16 9:00:00 CDT, Duration: 30 day, Stop date: 04/14/16 9:00:00 CDT Notes: Take with food. Start Date: 03/16/16 Stop Date: 03/16/16 Status: Discontinued aspirin 300 mg rectal suppository 300 mg, 1 supp, Route: TN, Drug form: SUPP, Daily, Dosing Weight 86.364, kg, Sta rt date: 03/16/16 9:00:00 CDT, Duration: 30 day, Stop date: 04/14/16 9:00:00 CDT Notes: Refrigerate. Start Date: 03/16/16 Stop Date: 03/15/16 Status: Canceled aspirin 325 mg tablet 325 mg, 1 tab, Route: NG, Drug form: TAB, ONCE, Dosing Weight 86.364, kg, Start date: 03/15/16 13:40:00 CDT, Stop date: 03/15/16 13:40:00 CDT Notes: Take with food. Start Date: 03/15/16 Stop Date: 03/15/16 Status: Completed atorvastatin 40 mg, 1 tab, Route: PO, Drug form: TAB, Bedtime, Dosing Weight 86.3, kg, Start date: 03/16/16 21:00:00 CDT, Duration: 30 day, Stop date: 04/14/16 21:00:00 CDT Notes: (Same as: Lipitor) Start Date: 03/16/16 Stop Date: 03/21/16 Status: Discontinued atorvastatin 40 mg oral tablet 40 mg=1 tab, PO, Daily, # 30 tab, 3 Refill(s) Start Date: 03/21/16 Stop Date: 07/19/16 Status: Ordered calcium gluconate (ANES) Route: IV, Drug form: INJ, ONCE, Stop date: 03/15/16 12:53:00 CDT Start Date: 03/15/16 Stop Date: 03/15/16 Status: Completed ceFAZolin 2 gm, 100 mL, Route: IVPB, Drug form: INJ, ONCALL, Dosing Weight 86.364, kg, Sta rt date: 03/14/16 14:00:00 CDT, Duration: 30 day, Stop date: 04/13/16 13:59:00 C DT Notes: Same as: Ancef Start Date: 03/14/16 Stop Date: 03/15/16 Status: Discontinued ceFAZolin (ANES) Route: IV, Drug form: INJ, ONCE, Stop date: 03/15/16 9:06:00 CDT Start Date: 03/15/16 Stop Date: 03/15/16 Status: Completed ceFAZolin (SCIP) 2 gm, 100 mL, Route: IVPB, Drug form: INJ, ABXQ8H, Dosing Weight 86.3, kg, Start date: 03/15/16 20:00:00 CDT, Duration: 3 doses or times, Stop date: 03/16/16 12 :00:00 CDT Notes: Same as: Ancef Start Date: 03/15/16 Stop Date: 03/16/16 Status: Completed Colace 100 mg oral capsule 100 mg, 1 cap, Route: PO, Drug form: CAP, BID, Dosing Weight 86.364, kg, Start d ate: 03/15/16 17:00:00 CDT, Duration: 30 day, Stop date: 04/14/16 9:00:00 CDT Notes: (Same as: Colace) (Do Not Crush) Start Date: 03/15/16 Stop Date: 03/21/16 Status: Discontinued Dextrose 50% Syringe 25 gm, 50 mL, Route: IVP, Drug Form: INJ, Dosing Weight 86.3, kg, PRN, PRN Blood Glucose Results, Start date: 03/15/16 16:45:00 CDT, Duration: 30 day, Stop date: 04/14/16 16:44:00 CDT Start Date: 03/15/16 Stop Date: 03/15/16 Status: Discontinued Dextrose 50% Syringe 12.5 gm, 25 mL, Route: IVP, Drug Form: INJ, Dosing Weight 86.3, kg, PRN, PRN Blo od Glucose Results, Start date: 03/15/16 16:45:00 CDT, Duration: 30 day, Stop da te: 04/14/16 16:44:00 CDT Start Date: 03/15/16 Stop Date: 03/15/16 Status: Discontinued Dextrose 50% Syringe 12.5 gm, 25 mL, Route: IVP, Drug Form: INJ, Dosing Weight 86.3, kg, PRN, PRN Blo od Glucose Results, Start date: 03/15/16 13:40:00 CDT, Duration: 30 day, Stop da te: 04/14/16 13:39:00 CDT Start Date: 03/15/16 Stop Date: 03/15/16 Status: Discontinued Dextrose 50% Syringe 25 gm, 50 mL, Route: IVP, Drug Form: INJ, Dosing Weight 86.3, kg, PRN, PRN Blood Glucose Results, Start date: 03/15/16 13:40:00 CDT, Duration: 30 day, Stop date: 04/14/16 13:39:00 CDT Start Date: 03/15/16 Stop Date: 03/15/16 Status: Discontinued Dextrose 50% Syringe 12.5 gm, 25 mL, Route: IVP, Drug Form: INJ, Dosing Weight 86.3, kg, PRN, PRN Blo od Glucose Results, Start date: 03/16/16 8:57:00 CDT, Duration: 30 day, Stop paulette e: 04/15/16 8:56:00 CDT Start Date: 03/16/16 Stop Date: 03/17/16 Status: Discontinued Dextrose 50% Syringe 25 gm, 50 mL, Route: IVP, Drug Form: INJ, Dosing Weight 86.3, kg, PRN, PRN Blood Glucose Results, Start date: 03/16/16 8:57:00 CDT, Duration: 30 day, Stop date: 04/15/16 8:56:00 CDT Start Date: 03/16/16 Stop Date: 03/17/16 Status: Discontinued Dextrose 50% Syringe 12.5 gm, 25 mL, Route: IVP, Drug Form: INJ, Dosing Weight 86.3, kg, PRN, PRN Blo od Glucose Results, Start date: 03/17/16 11:07:00 CDT, Duration: 30 day, Stop da te: 04/16/16 11:06:00 CDT Start Date: 03/17/16 Stop Date: 03/21/16 Status: Discontinued Dextrose 50% Syringe 25 gm, 50 mL, Route: IVP, Drug Form: INJ, Dosing Weight 86.3, kg, PRN, PRN Blood Glucose Results, Start date: 03/17/16 11:07:00 CDT, Duration: 30 day, Stop date: 04/16/16 11:06:00 CDT Start Date: 03/17/16 Stop Date: 03/21/16 Status: Discontinued Dulcolax Laxative 10 mg, 1 supp, Route: TN, Drug form: SUPP, ONCE, Dosing Weight 86.3, kg, PRN as needed for constipation, Start date: 03/20/16 16:26:00 CDT Notes: (Same As: Dulcolax, Bisco-Lax) Start Date: 03/20/16 Stop Date: 03/20/16 Status: Completed EPINEPHrine (ANES) (ANES) Route: IV, Drug form: INJ, Start date: 03/15/16 11:32:00 CDT, Stop date: 6 12:32:00 CDT Start Date: 03/15/16 Stop Date: 03/15/16 Status: Completed EPINEPHrine 1 mg/1 ml (PF) INJ AMP 4 mg + sodium chloride 0.9% INJ 246 mL 4 mg, 4 mL, Rate: Titrate, Start Dose: 5 microgram/min, Titration: 0.5 microgram /min every 2 min, Goal(s): MAP >=65 mmHg, Max Dose: 35 microgram/min, Route: IV, Dosing Weight 86.3 kg, Total Volume: 250, Start date: 03/15/16 18:09:00 CDT, Duration: 30... Notes: (Same as: Adrenalin) Suremed - Injectable drug used as inhalation treatme nt. MEDICATION WASTE Product Size: 1 mgProduct Wasted: _0_ mg Start Date: 03/15/16 Stop Date: 03/16/16 Status: Discontinued esmolol (ANES) Route: IV, Drug form: INJ, ONCE, Stop date: 03/15/16 8:26:00 CDT Start Date: 03/15/16 Stop Date: 03/15/16 Status: Completed fentaNYL 25 microgram, 0.5 mL, Route: IVP, Drug form: INJ, Q2H, Dosing Weight 86.3, kg, P RN Pain Score 4-6, Start date: 03/15/16 13:40:00 CDT, Duration: 30 day, Stop paulette e: 04/14/16 13:39:00 CDT Notes: (Same as: Sublimaze) Preservative free. Start Date: 03/15/16 Stop Date: 03/21/16 Status: Discontinued fentaNYL (ANES) Route: IV, Drug form: INJ, ONCE, Stop date: 03/15/16 8:21:00 CDT Start Date: 03/15/16 Stop Date: 03/15/16 Status: Completed fentaNYL [employer]ENT 20 micrograms/ml 30 ml 600 microgram 600 microgram, 30 mL, Route: IV, AIRPORT [employer]ENT Dose: 10 mcg, AIRPORT RAMP AGENT Lockout: 10 minutes, Cont inuous Basal Rate: 0 mg, 4 Hour Limit (In MCG): 240, Drug Form: INJ, Continuous, Start date: 03/15/16 14:00:00 CDT, Duration: 30 day, Stop date: 04/14/16 13:59: 00 CDT Notes: Concentration is 20 micrograms/ml Start Date: 03/15/16 Stop Date: 03/16/16 Status: Discontinued glucagon 1 mg, Route: IM, Drug form: PDR/INJ, PRN, Dosing Weight 86.3, kg, PRN Blood Gluc ose Results, Start date: 03/15/16 16:45:00 CDT, Duration: 30 day, Stop date: 09/28 16:44:00 CDT Start Date: 03/15/16 Stop Date: 03/15/16 Status: Discontinued glucagon 1 mg, Route: IM, Drug form: PDR/INJ, PRN, Dosing Weight 86.3, kg, PRN Blood Gluc ose Results, Priority: STAT, Start date: 03/16/16 8:57:00 CDT, Duration: 30 day, Stop date: 04/15/16 8:56:00 CDT Start Date: 03/16/16 Stop Date: 03/17/16 Status: Discontinued glucagon 1 mg, Route: IM, Drug form: PDR/INJ, PRN, Dosing Weight 86.3, kg, PRN Blood Gluc ose Results, Start date: 03/17/16 11:07:00 CDT, Duration: 30 day, Stop date: 11/26 11:06:00 CDT Start Date: 03/17/16 Stop Date: 03/21/16 Status: Discontinued heparin (ANES) Route: IV, Drug form: INJ, ONCE, Stop date: 03/15/16 9:52:00 CDT Start Date: 03/15/16 Stop Date: 03/15/16 Status: Completed heparin 5000 units/mL injectable solution 5,000 unit, 1 mL, Route: SUB-Q, Drug form: INJ, Q8H, Dosing Weight 86.3, kg, Sta rt date: 03/16/16 16:00:00 CDT, Duration: 30 day, Stop date: 04/15/16 8:00:00 CD T Notes: porcine heparin Start Date: 03/16/16 Stop Date: 03/21/16 Status: Discontinued hydrALAZINE 10 mg, 0.5 mL, Route: IVP, Drug form: INJ, Q6H, Dosing Weight 86.3, kg, PRN Hype rtension, Start date: 03/15/16 13:40:00 CDT, Duration: 30 day, Stop date: 13:39:00 CDT Notes: (Same as: Apresoline)Push over 5 minutes Start Date: 03/15/16 Stop Date: 03/21/16 Status: Discontinued insulin aspart 4 unit, 0.04 mL, Route: SUB-Q, Drug form: SOLN, TID-Before Meals, Dosing Weight 86.3, kg, PRN Blood Glucose Results, Start date: 03/15/16 16:45:00 CDT, Duration : 30 day, Stop date: 04/14/16 16:44:00 CDT Notes: Roll in palms of hands gently; Do not shake vigorously. (Same as: NovoNAKITA Hensley)"single patient use only"WASTE: F/P - Black; E - Municipal Trash Bin Stable f or 28 days at room temperature.Expires in days from Date Start Date: 03/15/16 Stop Date: 03/15/16 Status: Discontinued insulin aspart 2 unit, 0.02 mL, Route: SUB-Q, Drug form: SOLN, TID-Before Meals, Dosing Weight 86.3, kg, PRN Blood Glucose Results, Start date: 03/15/16 16:45:00 CDT, Duration : 30 day, Stop date: 04/14/16 16:44:00 CDT Notes: Roll in palms of hands gently; Do not shake vigorously. (Same as: NovoNAKITA Hensley)"single patient use only"WASTE: F/P - Black; E - Municipal Trash Bin Stable f or 28 days at room temperature.Expires in days from Date Start Date: 03/15/16 Stop Date: 03/15/16 Status: Discontinued insulin aspart 6 unit, 0.06 mL, Route: SUB-Q, Drug form: SOLN, TID-Before Meals, Dosing Weight 86.3, kg, PRN Blood Glucose Results, Start date: 03/15/16 16:45:00 CDT, Duration : 30 day, Stop date: 04/14/16 16:44:00 CDT Notes: Roll in palms of hands gently; Do not shake vigorously. (Same as: NovoNAKITA G)"single patient use only"WASTE: F/P - Black; E - Municipal Trash Bin Stable f or 28 days at room temperature.Expires in days from Date Start Date: 03/15/16 Stop Date: 03/15/16 Status: Discontinued insulin aspart 8 unit, 0.08 mL, Route: SUB-Q, Drug form: SOLN, TID-Before Meals, Dosing Weight 86.3, kg, PRN Blood Glucose Results, Start date: 03/15/16 16:45:00 CDT, Duration : 30 day, Stop date: 04/14/16 16:44:00 CDT Notes: Roll in palms of hands gently; Do not shake vigorously. (Same as: Ammon Hensley)"single patient use only"WASTE: F/P - Black; E - Municipal Trash Bin Stable f or 28 days at room temperature.Expires in days from Date Start Date: 03/15/16 Stop Date: 03/15/16 Status: Discontinued insulin aspart 10 unit, 0.1 mL, Route: SUB-Q, Drug form: SOLN, TID-Before Meals, Dosing Weight 86.3, kg, PRN Blood Glucose Results, Start date: 03/15/16 16:45:00 CDT, Duration : 30 day, Stop date: 04/14/16 16:44:00 CDT Notes: Roll in palms of hands gently; Do not shake vigorously. (Same as: Ammon Hensley)"single patient use only"WASTE: F/P - Black; E - Municipal Trash Bin Stable f or 28 days at room temperature.Expires in days from Date Start Date: 03/15/16 Stop Date: 03/15/16 Status: Discontinued insulin aspart 4 unit, 0.04 mL, Route: SUB-Q, Drug form: SOLN, Sliding Scale, Dosing Weight 86. 3, kg, PRN Blood Glucose Results, Start date: 03/16/16 8:57:00 CDT, Duration: 30 day, Stop date: 04/15/16 8:56:00 CDT Notes: Roll in palms of hands gently; Do not shake vigorously. (Same as: Ammon Hensley)"single patient use only"WASTE: F/P - Black; E - Municipal Trash Bin Stable f or 28 days at room temperature.Expires in days from Date Start Date: 03/16/16 Stop Date: 03/17/16 Status: Discontinued insulin aspart 2 unit, 0.02 mL, Route: SUB-Q, Drug form: SOLN, Sliding Scale, Dosing Weight 86. 3, kg, PRN Blood Glucose Results, Start date: 03/16/16 8:57:00 CDT, Duration: 30 day, Stop date: 04/15/16 8:56:00 CDT Notes: Roll in palms of hands gently; Do not shake vigorously. (Same as: Ammon Hensley)"single patient use only"WASTE: F/P - Black; E - Municipal Trash Bin Stable f or 28 days at room temperature.Expires in days from Date Start Date: 03/16/16 Stop Date: 03/17/16 Status: Discontinued insulin aspart 10 unit, 0.1 mL, Route: SUB-Q, Drug form: SOLN, Sliding Scale, Dosing Weight 86. 3, kg, PRN Blood Glucose Results, Start date: 03/16/16 8:57:00 CDT, Duration: 30 day, Stop date: 04/15/16 8:56:00 CDT Notes: Roll in palms of hands gently; Do not shake vigorously. (Same as: Ammon Hensley)"single patient use only"WASTE: F/P - Black; E - Municipal Trash Bin Stable f or 28 days at room temperature.Expires in days from Date Start Date: 03/16/16 Stop Date: 03/17/16 Status: Discontinued insulin aspart 8 unit, 0.08 mL, Route: SUB-Q, Drug form: SOLN, Sliding Scale, Dosing Weight 86. 3, kg, PRN Blood Glucose Results, Start date: 03/16/16 8:57:00 CDT, Duration: 30 day, Stop date: 04/15/16 8:56:00 CDT Notes: Roll in palms of hands gently; Do not shake vigorously. (Same as: Ammon Hensley)"single patient use only"WASTE: F/P - Black; E - Municipal Trash Bin Stable f or 28 days at room temperature.Expires in days from Date Start Date: 03/16/16 Stop Date: 03/17/16 Status: Discontinued insulin aspart 6 unit, 0.06 mL, Route: SUB-Q, Drug form: SOLN, Sliding Scale, Dosing Weight 86. 3, kg, PRN Blood Glucose Results, Start date: 03/16/16 8:57:00 CDT, Duration: 30 day, Stop date: 04/15/16 8:56:00 CDT Notes: Roll in palms of hands gently; Do not shake vigorously. (Same as: Ammon Hensley)"single patient use only"WASTE: F/P - Black; E - Municipal Trash Bin Stable f or 28 days at room temperature.Expires in days from Date Start Date: 03/16/16 Stop Date: 03/17/16 Status: Discontinued insulin aspart 2 unit, 0.02 mL, Route: SUB-Q, Drug form: SOLN, TID-Before Meals, Dosing Weight 86.3, kg, PRN Blood Glucose Results, Start date: 03/17/16 11:07:00 CDT, Duration : 30 day, Stop date: 04/16/16 11:06:00 CDT Notes: Roll in palms of hands gently; Do not shake vigorously. (Same as: Ammon Hensley)"single patient use only"WASTE: F/P - Black; E - Municipal Trash Bin Stable f or 28 days at room temperature.Expires in days from Date Start Date: 03/17/16 Stop Date: 03/21/16 Status: Discontinued insulin aspart 4 unit, 0.04 mL, Route: SUB-Q, Drug form: SOLN, TID-Before Meals, Dosing Weight 86.3, kg, PRN Blood Glucose Results, Start date: 03/17/16 11:07:00 CDT, Duration : 30 day, Stop date: 04/16/16 11:06:00 CDT Notes: Roll in palms of hands gently; Do not shake vigorously. (Same as: Ammon Hensley)"single patient use only"WASTE: F/P - Black; E - Municipal Trash Bin Stable f or 28 days at room temperature.Expires in days from Date Start Date: 03/17/16 Stop Date: 03/21/16 Status: Discontinued insulin aspart 6 unit, 0.06 mL, Route: SUB-Q, Drug form: SOLN, TID-Before Meals, Dosing Weight 86.3, kg, PRN Blood Glucose Results, Start date: 03/17/16 11:07:00 CDT, Duration : 30 day, Stop date: 04/16/16 11:06:00 CDT Notes: Roll in palms of hands gently; Do not shake vigorously. (Same as: Ammon Hensley)"single patient use only"WASTE: F/P - Black; E - Municipal Trash Bin Stable f or 28 days at room temperature.Expires in days from Date Start Date: 03/17/16 Stop Date: 03/21/16 Status: Discontinued insulin aspart 8 unit, 0.08 mL, Route: SUB-Q, Drug form: SOLN, TID-Before Meals, Dosing Weight 86.3, kg, PRN Blood Glucose Results, Start date: 03/17/16 11:07:00 CDT, Duration : 30 day, Stop date: 04/16/16 11:06:00 CDT Notes: Roll in palms of hands gently; Do not shake vigorously. (Same as: Ammon Hensley)"single patient use only"WASTE: F/P - Black; E - Municipal Trash Bin Stable f or 28 days at room temperature.Expires in days from Date Start Date: 03/17/16 Stop Date: 03/21/16 Status: Discontinued insulin aspart 10 unit, 0.1 mL, Route: SUB-Q, Drug form: SOLN, TID-Before Meals, Dosing Weight 86.3, kg, PRN Blood Glucose Results, Start date: 03/17/16 11:07:00 CDT, Duration : 30 day, Stop date: 04/16/16 11:06:00 CDT Notes: Roll in palms of hands gently; Do not shake vigorously. (Same as: NovoLO G)"single patient use only"WASTE: F/P - Black; E - Municipal Trash Bin Stable f or 28 days at room temperature.Expires in days from Date Start Date: 03/17/16 Stop Date: 03/21/16 Status: Discontinued Insulin regular 100 unit + sodium chloride 0.9% INJ 99 mL 99 mL, Rate: Start Insulin Drip Per ICU Protocol, Dosing Weight 86.3, kg, Route: IVPB, Total Volume: 100, Start Date: 03/15/16 13:40:00 CDT, Duration: 30 day, S top date: 04/14/16 13:39:00 CDT, Replace Every: 24 hr Notes: (Same as: Humulin R and NovoLIN R)WASTE: F/P - Black; E - Municipal Trash Bin (Do not shake) Start Date: 03/15/16 Stop Date: 03/16/16 Status: Discontinued labetalol 10 mg, 2 mL, Route: IVP, Drug form: INJ, Q4H, Dosing Weight 86.3, kg, PRN Hypert ension, Start date: 03/15/16 13:40:00 CDT, Duration: 30 day, Stop date: 04/14/16 13:39:00 CDT Start Date: 03/15/16 Stop Date: 03/21/16 Status: Discontinued lactulose 10 gm, 15 mL, Route: PO, Drug Form: SYRP, Dosing Weight 86.3, kg, ONCE, Start da te: 03/18/16 2:48:00 CDT, Stop date: 03/18/16 2:48:00 CDT Notes: (Same as:Chronulac) Start Date: 03/18/16 Stop Date: 03/18/16 Status: Completed lidocaine (ANES) Route: IV, Drug form: INJ, ONCE, Stop date: 03/15/16 8:21:00 CDT Start Date: 03/15/16 Stop Date: 03/15/16 Status: Completed metoprolol 2.5 mg, 2.5 mL, Route: IVP, Drug form: INJ, Q4H, Dosing Weight 86.3, kg, PRN Hyp ertension, Start date: 03/15/16 13:40:00 CDT, Duration: 30 day, Stop date: 04/14 13:39:00 CDT Notes: (Same as: Lopressor)Push over 2 minutes Start Date: 03/15/16 Stop Date: 03/21/16 Status: Discontinued metoprolol 2 mg, 2 mL, Route: IVP, Drug form: INJ, ONCE, Dosing Weight 86.364, kg, Start da te: 03/14/16 13:33:00 CDT, Duration: 1 doses or times, Stop date: 03/14/16 13:33 :00 CDT Notes: (Same as: Lopressor)Push over 2 minutes Start Date: 03/14/16 Stop Date: 03/16/16 Status: Completed metoprolol tartrate 12.5 mg, 1 tab, Route: PO, Drug form: TAB, Q6H, Dosing Weight 86.3, kg, Start da te: 03/17/16 12:00:00 CDT, Duration: 30 day, Stop date: 04/16/16 6:00:00 CDT Notes: (Same as: Lopressor) 12.5mg=1/4 X 50 mg tab. Start Date: 03/17/16 Stop Date: 03/18/16 Status: Discontinued metoprolol tartrate 50 mg, 1 tab, Route: PO, Drug form: TAB, Q12H, Dosing Weight 86.3, kg, Start paulette e: 03/18/16 21:00:00 CDT, Stop date: 04/17/16 9:00:00 CDT Notes: (Same as: Lopressor) Start Date: 03/18/16 Stop Date: 03/21/16 Status: Discontinued midazolam (ANES) Route: IV, Drug form: SOLN, ONCE, Stop date: 03/15/16 8:21:00 CDT Start Date: 03/15/16 Stop Date: 03/15/16 Status: Completed naloxone 0.04 mg, 0.1 mL, Route: IVP, Drug form: INJ, Q2MIN, Dosing Weight 86.3, kg, PRN Narcotic Reversal, Start date: 03/15/16 13:40:00 CDT, Duration: 30 day, Stop paulette e: 04/14/16 13:39:00 CDT Notes: Same as Narcan Start Date: 03/15/16 Stop Date: 03/21/16 Status: Discontinued niCARdipine 40 mg/ NS 200 ml IV Soln (premix) 40 mg 40 mg, 200 mL, Rate: Titrate, Start Dose: 5 mg/hr, Titration: increase or decrea se by 5, but no more than 10, Goal(s): MAP 60, Route: IV, Dosing Weight 86.3 kg, Total Volume: 200 mL, Start date: 03/15/16 13:40:00 CDT, Duration: 30 day, Stop date: ... Notes: Same as: CardeneConcentration: (0.2 mg /1 ml ) Start Date: 03/15/16 Stop Date: 03/16/16 Status: Discontinued NS (Bolus) IV 250 mL, 250 ml/hr, Infuse Over: 1 hr, Route: IV, ONCE, Priority: STAT, Dosing We ight 86.3 kg, Start date: 03/15/16 16:33:00 CDT, Duration: 1 doses or times, Sto p date: 03/15/16 16:33:00 CDT Start Date: 03/15/16 Stop Date: 03/15/16 Status: Completed NS (Bolus) IV 250 mL, 250 ml/hr, Infuse Over: 1 hr, Route: IV, ONCE, Priority: Routine, Dosing Weight 86.3 kg, Start date: 03/15/16 15:00:00 CDT, Duration: 1 doses or times, Stop date: 03/15/16 15:00:00 CDT Start Date: 03/15/16 Stop Date: 03/15/16 Status: Completed pantoprazole 40 mg, Route: IVP, Drug form: INJ, Daily, Dosing Weight 86.364, kg, Start date: 03/16/16 9:00:00 CDT, Duration: 30 day, Stop date: 04/14/16 9:00:00 CDT Notes: For IV push reconstitute with 10 ml 0.9% sodium chloride and push over 2 minutes. (Same as: Protonix) Start Date: 03/16/16 Stop Date: 03/15/16 Status: Canceled propofol (ANES) Route: IV, Drug form: INJ, ONCE, Stop date: 03/15/16 8:21:00 CDT Start Date: 03/15/16 Stop Date: 03/15/16 Status: Completed protamine (ANES) Route: IV, Drug form: INJ, ONCE, Stop date: 03/15/16 12:48:00 CDT Start Date: 03/15/16 Stop Date: 03/15/16 Status: Completed Protonix 40 mg, 1 tab, Route: PO, Drug form: ECTAB, Before Breakfast, Dosing Weight 86.3, kg, Start date: 03/16/16 7:30:00 CDT, Duration: 30 day, Stop date: 04/14/16 7:3 0:00 CDT Notes: Tablet should not be chewed or crushed.(Same as: Protonix) Start Date: 03/16/16 Stop Date: 03/21/16 Status: Discontinued rocuronium (ANES) Route: IV, Drug form: INJ, ONCE, Stop date: 03/15/16 8:21:00 CDT Start Date: 03/15/16 Stop Date: 03/15/16 Status: Completed Saline Flush 0.9% 5 ml, Route: MISC, Drug Form: INJ, Dosing Weight 86.364, kg, PRN, PRN Line Flush , Start date: 03/14/16 13:33:00 CDT, Duration: 30 day, Stop date: 04/13/16 13:32 :00 CDT Notes: (Same as: BD Posiflush) Start Date: 03/14/16 Stop Date: 03/21/16 Status: Discontinued Saline Flush 0.9% 5 ml, Route: MISC, Drug Form: INJ, Dosing Weight 86.364, kg, Q12H, Start date: 0 03/14/16 21:00:00 CDT, Duration: 30 day, Stop date: 04/13/16 9:00:00 CDT Notes: (Same as: BD Posiflush) Start Date: 03/14/16 Stop Date: 03/21/16 Status: Discontinued senna 8.6 mg, 1 tab, Route: PO, Drug Form: TAB, Dosing Weight 86.3, kg, BID, Start paulette e: 03/17/16 9:00:00 CDT, Duration: 30 day, Stop date: 04/15/16 17:00:00 CDT Notes: (Same as: Ramon) Start Date: 03/17/16 Stop Date: 03/21/16 Status: Discontinued sodium bicarbonate (ANES) Route: IV, Drug form: INJ, ONCE, Stop date: 03/15/16 13:23:00 CDT Start Date: 03/15/16 Stop Date: 03/15/16 Status: Completed sodium chloride 0.9% 1000 ml INJ (ANES) Route: IV, Total Volume: 1,000, Start date: 03/15/16 7:43:00 CDT, Stop date: 10/26 8:43:00 CDT Start Date: 03/15/16 Stop Date: 03/15/16 Status: Completed sodium chloride 0.9% 500 ml INJ (ANES) Route: IV, Total Volume: 500, Start date: 03/15/16 8:15:00 CDT, Stop date: 03/15 9:15:00 CDT Start Date: 03/15/16 Stop Date: 03/15/16 Status: Completed sodium chloride 0.9% INJ 250 mL 250 mL, Rate: 500 ml/hr, Infuse over: 0.5 hr, Route: IV, Dosing Weight 86.3 kg, Total Volume: 250, Start date: 03/15/16 16:29:00 CDT, Duration: 1 doses or times , Stop date: 03/15/16 16:58:00 CDT Start Date: 03/15/16 Stop Date: 03/15/16 Status: Discontinued sodium chloride 0.9% INJ 250 mL 250 mL, Rate: Titrate, Dosing Weight 86.364, kg, Route: IV, Total Volume: 250, S tart Date: 03/14/16 13:33:00 CDT, Duration: 30 day, Stop date: 04/13/16 13:32:00 CDT, Replace Every: 24 hr Start Date: 03/14/16 Stop Date: 03/16/16 Status: Discontinued Toprol-XL 100 mg oral tablet, extended release 100 mg=1 tab, PO, Daily, # 30 tab, 3 Refill(s) Start Date: 03/21/16 Status: Ordered tranexamic acid (ANES) (ANES) Route: IV, Drug form: INJ, Start date: 03/15/16 8:38:00 CDT, Stop date: 03/15/16 9:38:00 CDT Start Date: 03/15/16 Stop Date: 03/15/16 Status: Completed Tylenol with Codeine #3 oral tablet 1 tab, PO, Q8H, X 7 day, # 21 tab, 0 Refill(s) Start Date: 03/21/16 Stop Date: 03/28/16 Status: Ordered vancomycin (ANES) (ANES) Route: IV, Drug form: INJ, Start date: 03/15/16 8:39:00 CDT, Stop date: 03/15/16 9:39:00 CDT Start Date: 03/15/16 Stop Date: 03/15/16 Status: Completed vancomycin (SCIP) + sodium chloride 0.9% INJ 150 mL 750 mg, Route: IVPB, Drug form: PDR/INJ, [id number], Dosing Weight 86.364, kg, Star t date: 03/15/16 21:00:00 CDT, Duration: 2 doses or times, Stop date: 03/16/16 9 :00:00 CDT Notes: TIME CRITICAL MEDICATION(Same As: Vancocin)Infusion rate< 1000 mg: infuse over 1 [id number] - 1500 mg: infuse over 1.5 [id number] - 2000 mg: infuse over 2 hours> 2001 mg: infuse over 2.5 hours Start Date: 03/15/16 Stop Date: 03/16/16 Status: Completed Zofran 4 mg, 2 mL, Route: IV, Drug form: INJ, Q6H, Dosing Weight 86.364, kg, PRN Nausea , Start date: 03/15/16 13:40:00 CDT, Duration: 30 day, Stop date: 04/14/16 13:39 :00 CDT Notes: (Same as: Zofran) MEDICATION WASTE Product Size: 4 mgProduct Was bert: _0_ mg Start Date: 03/15/16 Stop Date: 03/21/16 Status: Discontinued Results BLOOD BANK RESULTS 1 2 3 Most recent to oldest [Reference Range]: O POS *Unknown* (03/15/16 6:14 AM) ABO/Rh Negative (03/15/16 6:14 AM) Antibody Scrn Product available (03/14/16 10:47 PM) FFP product Product available (03/14/16 1:33 PM) Platelet product Product available (03/14/16 10:47 PM) RBC product ELECTROLYTES 1 2 3 Most recent to oldest [Reference Range]: 135 mEq/L (03/21/16 5:11 AM) 140 mEq/L (03/20/16 5:43 AM) 138 mEq/L (03/19/16 5:43 AM) Sodium Lvl [135-145 mEq/L] 4.4 mEq/L (03/21/16 5:11 AM) 4.0 mEq/L (03/20/16 5:43 AM) 3.7 mEq/L (03/19/16 5:43 AM) Potassium Lvl [3.5-5.1 mEq/L] 101 mEq/L (03/21/16 5:11 AM) 104 mEq/L (03/20/16 5:43 AM) 104 mEq/L (03/19/16 5:43 AM) Chloride Lvl [95-109 mEq/L] 26 mEq/L (03/21/16 5:11 AM) 27 mEq/L (03/20/16 5:43 AM) 25 mEq/L (03/19/16 5:43 AM) CO2 [24-32 mEq/L] 12.4 mEq/L (03/21/16 5:11 AM) 13.0 mEq/L (03/20/16 5:43 AM) 12.7 mEq/L (03/19/16 5:43 AM) AGAP [10.0-20.0 mEq/L] CHEM PANEL 1 2 3 Most recent to oldest [Reference Range]: 0.98 mg/dL (03/21/16 5:11 AM) 1.04 mg/dL (03/20/16 5:43 AM) 0.96 mg/dL (03/19/16 5:43 AM) Creatinine Lvl [0.50-1.40 mg/dL] 74 mL/min/1.73m2 1 *NA* (03/21/16 5:11 AM) 69 mL/min/1.73m2 2 *NA* (03/20/16 5:43 AM) 76 mL/min/1.73m2 3 *NA* (03/19/16 5:43 AM) eGFR 13 mg/dL (03/21/16 5:11 AM) 14 mg/dL (03/20/16 5:43 AM) 17 mg/dL (03/19/16 5:43 AM) BUN [7-22 mg/dL] 11 (03/15/16 6:14 AM) B/C Ratio [6-25] 106 mg/dL *HI* (03/21/16 5:11 AM) 100 mg/dL *HI* (03/20/16 5:43 AM) 114 mg/dL *HI* (03/19/16 5:43 AM) Glucose Lvl [70-99 mg/dL] 7.3 g/dL (03/15/16 6:14 AM) Total Protein [6.4-8.4 g/dL] 4.1 g/dL (03/15/16 6:14 AM) Albumin Lvl [3.5-5.0 g/dL] 3.2 g/dL (03/15/16 6:14 AM) Globulin [2.7-4.2 g/dL] 1.3 (03/15/16 6:14 AM) A/G Ratio [0.7-1.6] 8.4 mg/dL *LOW* (03/21/16 5:11 AM) 8.1 mg/dL *LOW* (03/20/16 5:43 AM) 8.3 mg/dL *LOW* (03/19/16 5:43 AM) Calcium Lvl [8.5-10.5 mg/dL] 3.3 mg/dL (03/21/16 5:11 AM) 3.2 mg/dL (03/20/16 5:43 AM) 2.7 mg/dL (03/19/16 5:43 AM) Phosphorus [2.5-4.5 mg/dL] 2.2 mg/dL (03/21/16 5:11 AM) 2.2 mg/dL (03/20/16 5:43 AM) 2.2 mg/dL (03/19/16 5:43 AM) Magnesium Lvl [1.8-2.4 mg/dL] 29 unit/L (03/15/16 6:14 AM) ALT [0-65 unit/L] 13 unit/L (03/15/16 6:14 AM) AST [0-37 unit/L] 70 unit/L (03/15/16 6:14 AM) Alk Phos [39-136 unit/L] 0.7 mg/dL (03/15/16 6:14 AM) Bili Total [0.2-1.3 mg/dL] 7.2 mMol/L 4 *CRIT* (03/15/16 11:16 PM) 4.8 mMol/L 5 *CRIT* (03/15/16 5:23 PM) 4.9 mMol/L 6 *CRIT* (03/15/16 2:25 PM) Lactic Acid Lvl [0.5-2.2 mMol/L] 1Result Comment: The eGFR is calculated using [...] be mul tiplied by the estimated BMI. 2Result Comment: The eGFR is calculated using the [...] be mul tiplied by the estimated BMI. 3Result Comment: The eGFR is calculated using the [...] be mul tiplied by the estimated BMI. 4Result Comment: Critical Result(s) called to Marc Frost at 03/16/2016 00:41 by NT. Read back OK. 5Result Comment: Critical Result(s) called to devyn frost at 03/15/2016 20:04 by nk. Read back OK. 6Result Comment: Critical Result(s) called to Evelina Saucedo at 03/15/2016 15:41 by KW. Read back OK. PARATHYROID PROFILE 1 2 3 Most recent to oldest [Reference Range]: 1.09 mMol/L (03/17/16 2:27 AM) 1.03 mMol/L *LOW* (03/15/16 11:16 PM) 1.06 mMol/L (03/15/16 2:23 PM) Ca Ion WB [1.05-1.25 mMol/L] 1.07 mMol/L (03/17/16 2:27 AM) 1.02 mMol/L *LOW* (03/15/16 11:16 PM) 1.02 mMol/L *LOW* (03/15/16 2:23 PM) Ca Norm WB [1.05-1.25 mMol/L] BODY FLUIDS 1 2 3 Most recent to oldest [Reference Range]: 7.50 *NA* (03/21/16 2:38 PM) pH BF Pleural (03/21/16 2:38 PM) pH BF Type Pleural *NA* (03/21/16 2:38 PM) Prot BF Type Pleural *NA* (03/21/16 2:38 PM) LDH BF Type 3.0 g/dL *NA* (03/21/16 2:38 PM) Protein BF 391 unit/L *NA* (03/21/16 2:38 PM) LDH BF Red *ABN* (03/21/16 2:38 PM) Color BF [Colorless] Marked *ABN* (03/21/16 2:38 PM) Clarity BF [Clear] 71948 /mm3 *NA* (03/21/16 2:38 PM) RBC BF 578 /mm3 *NA* (03/21/16 2:38 PM) WBC BF 37 % *NA* (03/21/16 2:38 PM) Segs BF 31 % *NA* (03/21/16 2:38 PM) Lymph BF 4 % *NA* (03/21/16 2:38 PM) Eos BF 28 % *NA* (03/21/16 2:38 PM) Macrophage BF Pleural (03/21/16 2:38 PM) CellCnt BF Type HEMATOLOGY 1 2 3 Most recent to oldest [Reference Range]: 7.5 K/CMM (03/21/16 5:11 AM) 7.6 K/CMM (03/20/16 5:43 AM) 8.5 K/CMM (03/19/16 5:43 AM) WBC [3.7-10.4 K/CMM] 3.04 M/CMM *LOW* (03/21/16 5:11 AM) 2.92 M/CMM *LOW* (03/20/16 5:43 AM) 2.96 M/CMM *LOW* (03/19/16 5:43 AM) RBC [4.70-6.10 M/CMM] 9.2 g/dL *LOW* (03/21/16 5:11 AM) 8.8 g/dL *LOW* (03/20/16 5:43 AM) 8.7 g/dL *LOW* (03/19/16 5:43 AM) Hgb [14.0-18.0 g/dL] 26.3 % *LOW* (03/21/16 5:11 AM) 25.1 % *LOW* (03/20/16 5:43 AM) 25.6 % *LOW* (03/19/16 5:43 AM) Hct [42.0-54.0 %] 86.5 fL (03/21/16 5:11 AM) 86.2 fL (03/20/16 5:43 AM) 86.4 fL (03/19/16 5:43 AM) MCV [80.0-94.0 fL] 30.1 pg (03/21/16 5:11 AM) 30.1 pg (03/20/16 5:43 AM) 29.4 pg (03/19/16 5:43 AM) MCH [27.0-31.0 pg] 34.8 g/dL (03/21/16 5:11 AM) 34.9 g/dL (03/20/16 5:43 AM) 34.0 g/dL (03/19/16 5:43 AM) MCHC [32.0-36.0 g/dL] 14.1 % (03/21/16 5:11 AM) 13.7 % (03/20/16 5:43 AM) 13.9 % (03/19/16 5:43 AM) RDW [11.5-14.5 %] 234 K/CMM (03/21/16 5:11 AM) 178 K/CMM (03/20/16 5:43 AM) 153 K/CMM (03/19/16 5:43 AM) Platelet [133-450 K/CMM] 9.5 fL (03/21/16 5:11 AM) 9.4 fL (03/20/16 5:43 AM) 9.7 fL (03/19/16 5:43 AM) MPV [7.4-10.4 fL] 63.6 % (03/21/16 5:11 AM) 56.9 % (03/20/16 5:43 AM) 70.2 % (03/19/16 5:43 AM) Segs [45.0-75.0 %] 1.0 % (03/15/16 11:16 PM) Bands [0.0-11.0 %] 22.7 % (03/21/16 5:11 AM) 29.6 % (03/20/16 5:43 AM) 19.9 % *LOW* (03/19/16 5:43 AM) Lymphocytes [20.0-40.0 %] 0.0 % (8/3/16 11:16 PM) Atypical Lymphs [<=0.0 %] 11.3 % (03/21/16 5:11 AM) 10.6 % (03/20/16 5:43 AM) 8.8 % (03/19/16 5:43 AM) Monocytes [2.0-12.0 %] 2.0 % (03/21/16 5:11 AM) 2.6 % (03/20/16 5:43 AM) 0.8 % (03/19/16 5:43 AM) Eosinophils [0.0-4.0 %] 0.4 % (03/21/16 5:11 AM) 0.3 % (03/20/16 5:43 AM) 0.3 % (03/19/16 5:43 AM) Basophils [0.0-1.0 %] 4.8 K/CMM (03/21/16 5:11 AM) 4.3 K/CMM (03/20/16 5:43 AM) 6.0 K/CMM (03/19/16 5:43 AM) Segs-Bands # [1.5-8.1 K/CMM] 1.7 K/CMM (03/21/16 5:11 AM) 2.3 K/CMM (03/20/16 5:43 AM) 1.7 K/CMM (03/19/16 5:43 AM) Lymphocytes # [1.0-5.5 K/CMM] 0.8 K/CMM (03/21/16 5:11 AM) 0.8 K/CMM (03/20/16 5:43 AM) 0.7 K/CMM (03/19/16 5:43 AM) Monocytes # [0.0-0.8 K/CMM] 0.2 K/CMM (03/21/16 5:11 AM) 0.2 K/CMM (03/20/16 5:43 AM) 0.1 K/CMM (03/19/16 5:43 AM) Eosinophils # [0.0-0.5 K/CMM] Normal (03/15/16 11:16 PM) RBC Morph Moderate *ABN* (03/21/16 5:11 AM) Polychrom [None Seen] 1+ (03/21/16 5:11 AM) Hypochrom [None Seen] occasional *Unknown* (03/15/16 11:16 PM) Giant Plt 14.6 seconds (03/20/16 5:43 AM) 14.2 seconds (03/19/16 5:43 AM) 14.8 seconds *HI* (03/18/16 3:14 AM) PT [12.0-14.7 seconds] 1.11 (03/20/16 5:43 AM) 1.07 (03/19/16 5:43 AM) 1.13 (03/18/16 3:14 AM) INR [0.85-1.17] 46.0 seconds *HI* (03/20/16 5:43 AM) 39.6 seconds *HI* (03/19/16 5:43 AM) 44.0 seconds *HI* (03/18/16 3:14 AM) PTT [22.9-35.8 seconds] Negative (03/17/16 5:10 PM) Heparin Ab(FREDI) [Negative] .103 *NA* (03/17/16 5:10 PM) Pat Od Value .442 *NA* (03/17/16 5:10 PM) Pos CO Value Immunizations Given and Recorded Vaccine Date Status Refusal Reason pneumococcal 23-valent vaccine 03/17/06 Given Procedures Procedure Date Related Diagnosis Body Site Cardiac catheterization, left heart1 1stent to LAD Social History Social History Type Response Smoking Status Never smoker; Exposure to Tobacco Smoke None; Cigarette Smoking Last 365 Days No; Reg Smoking Cessation Counseling No Assessment and Plan Extracted from: Title: Discharge Note Author: Imani Moulton Date: 03/21/16 Discharge Plan Follow up with Dr. Valentine in 1 week Follow up with CV surgery in 1 week Follow up with Dr. Low in 1 week Heart Healthy Diet Sternal Precautions x 8 weeks Medication List acetaminophen-codeine: 1 tab, PO, Q8H, for 7 day, 21 tab, 0 Refill(s). atorvastatin: 40 mg, 1 tab, PO, Daily, for 30 day, 30 tab, 3 Refill(s). metoprolol: 100 mg, 1 tab, PO, Daily, 30 tab, 3 Refill(s). aspirin: 1 tab, PO, Daily, tab. metFORMIN: 500 mg, 1 tab, PO, Daily, 180 tab, 1 Refill(s). multivitamin: 1 tab, PO, Daily. omega-3 polyunsaturated fatty acids: 1,000 mg, 1 cap, PO, BID, 120 cap. omeprazole: 1 tab, PO, BID, 60 tab. tamsulosin: 0.8 mg, 2 cap, PO, Daily, 90 cap, 0 Refill(s). Patient Discharge Condition Stable Discharge Disposition Home Extracted from: Title: [facility] Inpatient Progress Note Author: Imani Moulton Date: 03/20/16 Impression and Plan CAD s/p PCI 2005 on proximal LAD, DM, HTN, and HLD who underwent 4v CABG 03/15/16. 1. CAD s/p CABG- ACB (JORDAN to LAD, GSVG to OM, GSVG to Diagonal, GSVG to RCA), LLE EVH above and below knee. - 02/23/16 EF was found to be 40-45% - continue ASA and Statin; decrease aspirin to 81 mg daily - wean O2 to keep O2sats> 90% and encouraged use of incentive spirometer 2.HTN - increase metoprolol to 50 mg BID 3.HLD - cont statin 4.DM - ISS DVT: heparin SQ PPI PT/OT Diet- heart healthy Dispo: likely home tomorrow Extracted from: Title: [facility] ICU Consult Note Author: Philippe Gutierrez DO Date: 03/15/16 Patient: JILLIAN CONTEH Age: 75 years Sex: Male : 1940 Associated Diagnoses: None Author: Philippe Gutierrez DO Basic Information 75 y/o M with GERD, DM, HTN, HLD, CAD s/p 4 vessel CABG on 03/15/16, ( JORDAN to LAD, SVG to OM, VG to diagonal, SVG to RCA). He returns from the operating theater intubated and still under the effects of anesthesia. He did awaken waken and follow commands. IVF: 1800 ml Cell saver: 3 units PRBC: 0 UO: 1060 ml EBL: 2000 ml Chest tubes: anterior mediastinal, posterior mediastinal, left pleural Review of Systems unobtainable 2/2 current status Health Status Allergies: Allergic Reactions (All) Severity Not Documented NKDA- No reactions were documented., No qualifying data available Current medications: (Selected) Inpatient Medications Ordered Colace 100 mg oral capsule: 100 mg, 1 cap, PO, BID EPINEPHrine 1 mg/1 ml (PF) INJ AMP 4 mg + sodium chloride 0.9% INJ 246 mL: Titrate, IV, Stop: 04/14/16 18:08:00 CDT Insulin regular 100 unit + sodium chloride 0.9% INJ 99 mL: Start Insulin Drip Per ICU Protocol, IVPB, Stop: 04/14/16 13:39:00 CDT Protonix: 40 mg, 1 tab, PO, Before Breakfast Saline Flush 0.9%: 5 ml, MISC, PRN, PRN: Line Flush Saline Flush 0.9%: 5 ml, MISC, Q12H Zofran: 4 mg, 2 mL, IV, Q6H, PRN: Nausea acetaminophen-hydrocodone 325 mg-10 mg oral tablet: 1 tab, PO, Q4H, PRN: Pain Score 1-3 acetaminophen-hydrocodone 325 mg-10 mg oral tablet: 2 tab, PO, Q4H, PRN: Pain Score 4-6 acetaminophen: 650 mg, 1 supp, TN, Q4H, PRN: Pain Score 1-3 acetaminophen: 650 mg, 2 tab, PO, Q4H, PRN: Pain 1-3/Temp > 100.4 F aspirin: 325 mg, 1 tab, NG, Daily atorvastatin: 40 mg, 1 tab, PO, Bedtime ceFAZolin (SCIP): 2 gm, 100 mL, 200 ml/hr, IVPB, [id number] fentaNYL [employer] 20 micrograms/ml 30 ml 600 microgram: Per [employer] Order as Directed, IV, Stop: 04/14/16 13:59:00 CDT fentaNYL: 25 microgram, 0.5 mL, IVP, Q2H, PRN: Pain Score 4-6 hydrALAZINE: 10 mg, 0.5 mL, IVP, Q6H, PRN: Hypertension labetalol: 10 mg, 2 mL, IVP, Q4H, PRN: Hypertension metoprolol: 2 mg, 2 mL, IVP, ONCE metoprolol: 2.5 mg, 2.5 mL, IVP, Q4H, PRN: Hypertension naloxone: 0.04 mg, 0.1 mL, IVP, Q2MIN, PRN: Narcotic Reversal niCARdipine 40 mg/ NS 200 ml IV Soln (premix) 40 mg: Titrate, IV, Stop: 04/14/16 13:39:00 CDT sodium chloride 0.9% INJ 250 mL: Titrate, IV, Stop: 04/13/16 13:32:00 CDT vancomycin (SCIP) + sodium chloride 0.9% INJ 150 mL: 750 mg, 150 ml/hr, IVPB, [id number] Documented Medications Documented Nitrostat 0.4 mg sublingual tablet: 1 tab, SL, Q5Min, 100 tab, PRN: Chest Pain Prostate 2.4: 1 cap, PO, Daily, 0 Refill(s) Ranexa 500 mg oral tablet, extended release: 500 mg, 1 tab, PO, BID, 60 tab, 0 Refill(s) Toprol-XL 25 mg oral tablet, extended release: 1 tab, PO, Daily, 30 tab aspirin 81 mg tablet, chewable: 1 tab, PO, Daily, tab enalapril 2.5 mg oral tablet: 1 tab, PO, Daily, 30 tab isosorbide mononitrate 60 mg oral tablet, extended release: 60 mg, 1 tab, PO, QAM, 90 tab, 3 Refill(s) metFORMIN 500 mg oral tablet: 500 mg, 1 tab, PO, Daily, 180 tab, 1 Refill(s) multivitamin: 1 tab, PO, Daily omega-3 polyunsaturated fatty acids ethyl esters 1000 mg oral capsule: 1,000 mg, 1 cap, PO, BID, 120 cap omeprazole 20 mg oral enteric coated tablet: 1 tab, PO, BID, 60 tab tamsulosin 0.4 mg oral capsule: 0.8 mg, 2 cap, PO, Daily, 90 cap, 0 Refill(s), Medications (24) Active Scheduled: (8) aspirin 325 mg TAB 325 mg 1 tab, NG, Daily atorvastatin 40mg tab 40 mg 1 tab, PO, Bedtime ceFAZolin 2gm / NS 100ml (Premixed) 2 gm 100 mL, IVPB, [id number] docusate sodium 100 mg CAP 100 mg 1 cap, PO, BID metoprolol 5 mg/5 ml INJ 2 mg 2 mL, IVP, ONCE pantoprazole 40 mg ECT 40 mg 1 tab, PO, Before Breakfast sodium chloride 0.9% 10 ml flush syr BD 5 ml, MISC, Q12H vancomycin 750 mg INJ VL + sodium chloride 0.9% INJ 150 mL 750 mg, IVPB, [id number] Continuous: (5) EPINEPHrine 1 mg/1 ml (PF) INJ AMP 4 mg + sodium chloride 0.9% INJ 246 mL 4 mg 4 mL, IV fentaNYL [employer] 20 micrograms/ml 30 ml 600 microgram 600 microgram 30 mL, IV insulin reg human rec 100 unit/ml INJ 1ml 100 unit + sodium chloride 0.9% INJ 99 mL 99 mL, IVPB niCARdipine 40 mg/ NS 200 ml IV Soln (premix) 40 mg 40 mg 200 mL, IV sodium chloride 0.9% INJ 250 mL 250 mL, IV PRN: (11) acetaminophen 325 mg TABLET 650 mg 2 tab, PO, Q4H acetaminophen 650 mg rect SUPP 650 mg 1 supp, TN, Q4H acetaminophen-hydrocodone 325-10mg TAB 1 tab, PO, Q4H acetaminophen-hydrocodone 325-10mg TAB 2 tab, PO, Q4H fentaNYL 100 microgram/2 ml INJ 25 microgram 0.5 mL, IVP, Q2H hydrALAZINE 20 mg/1 ml VL 10 mg 0.5 mL, IVP, Q6H labetalol 100 mg/20 ml VL 10 mg 2 mL, IVP, Q4H metoprolol 5 mg/5 ml INJ 2.5 mg 2.5 mL, IVP, Q4H naloxone 0.4 mg/ml 1ml INJ vial 0.04 mg 0.1 mL, IVP, Q2MIN ondansetron 4 mg/2ml INJ VL 4 mg 2 mL, IV, Q6H sodium chloride 0.9% 10 ml flush syr BD 5 ml, MISC, PRN Problem list: No qualifying data available Histories Past Medical History: Resolved CAD - Coronary artery disease ([id number]): Resolved. Angina ([id number]): Resolved. GERD (gastroesophageal reflux disease) ([id number]): Resolved. HTN (hypertension) ([id number]): Resolved. HLD (hyperlipidemia) ([id number]): Resolved. Left ventricular hypertrophy ([id number]): Resolved. Murmur ([id number]): Resolved. Diabetes ([id number]): Resolved. Hypertension ([id number]): Resolved. Hyperlipidemia ([id number]): Resolved. Coronary artery disease ([id number]): Resolved. Angina ([id number]): Resolved. Family History: Hypertension Mother Heart disease Mother Chest pain Mother Procedure history: Cardiac catheterization, left heart ([id number]). Comments: 02/16/2016 11:38 - Víctor Guillermo RN stent to LAD Social History Social & Psychosocial Habits Tobacco 03/15/2016 Use: Never smoker Exposure to Tobacco Smoke None Cigarette Smoking Last 365 Days No Reg Smoking Cessation Counseling No . Physical Examination VS/Measurements Vital Signs (last 24 hrs) Last Charted Temp AxillaryH 100.1DegF (MAR 15 18:30) Heart Rate ApicalH 111bpm (MAR 16 03:00) Resp Rate H 27BRMIN (MAR 16 03:00) SBPH 149mmHg (MAR 15 06:30) DBP75 mmHg (MAR 15 06:30) YkZ808 % (MAR 16 03:00) Ewbykn87.3 kg (MAR 15 16:24) Cubeaw897.72 cm (MAR 15 15:00) BMI28.93 (MAR 15 15:00) , Measurements from flowsheet : Measurements 03/15/2016 16:29 Heparin Dosing Weight (kg) 75.56 03/15/2016 16:24 Heparin Dosing Weight (kg) 76.94 03/15/2016 16:24 Weight 86.3 kg Dosing Weight Difference Percent 0 % Dosing Weight Collection Method Measured 03/15/2016 15:00 Height 172.72 cm Height Collection Method Stated Weight 86.3 kg Dosing Weight Difference Percent 0 % Dosing Weight Collection Method Measured Body Surface Area 2.0348 m2 Body Mass Index 28.93 m2 03/15/2016 09:37 Heparin Dosing Weight (kg) 76.94 03/15/2016 09:37 Heparin Dosing Weight (kg) 76.94 03/15/2016 09:37 Weight 86.3 kg Dosing Weight Difference Percent 0 % Dosing Weight Collection Method Measured 03/15/2016 09:36 Weight 86.3 kg Dosing Weight Difference Percent -0.074 % Dosing Weight Collection Method Measured General: No acute distress, intubated, awakens to name and follows commands . Eye: Pupils are equal, round and reactive to light, Extraocular movements are intact. HENT: Normocephalic, Normal hearing, Oral mucosa is moist, ET tube inplace. Neck: Supple. Respiratory: Lungs are clear to auscultation, Breath sounds are equal. Cardiovascular: Normal rate, Regular rhythm, pericardial rub, Chests all draining serosanguis no leak . Gastrointestinal: Soft, Non-tender, Non-distended. Musculoskeletal Normal strength. No swelling. No deformity. Integumentary: Warm, Dry. Neurologic: Alert, Normal motor function, No focal deficits, Cranial Nerves II- XII are grossly intact. Psychiatric: Cooperative. Review / Management Results review: Labs (Last four charted values) WBC H 13.6(MAR 15)H 21.2(MAR 15)5.3(MAR 15) Hgb L 10.8(MAR 15)14.3(MAR 15)15.9(MAR 15) Hct L 32.6(MAR 15)42.3(MAR 15)46.2(MAR 15) Plt L 121(MAR 15)135(MAR 15)158(MAR 15) Na 143(MAR 15)145(MAR 15)142(MAR 15) K 4.2(MAR 15)4.1(MAR 15)3.8(MAR 15) CO2 L 20(MAR 15)L 23(MAR 15)26(MAR 15) Cl 107(MAR 15)H 110(MAR 15)107(MAR 15) Cr H 1.60(MAR 15)1.23(MAR 15)1.24(MAR 15) BUN 16(MAR 15)14(MAR 15)14(MAR 15) Glucose Random H 210(MAR 15)H 168(MAR 15)H 110(MAR 15) Mg 2.1(MAR 15)2.3(MAR 15)H 2.5(MAR 15) Phos 3.8(MAR 15)3.9(MAR 15)3.2(MAR 15) Ca L 7.6(MAR 15)L 7.6(MAR 15)8.9(MAR 15) PT H 17.1(MAR 15)13.8(MAR 15) INR H 1.36(MAR 15)1.03(MAR 15) PTT 31.4(MAR 15)35.0(MAR 15). Impression and Plan 75 y/o M with GERD, DM, HTN, HLD, CAD s/p 4 vessel CABG. He is awaking, following commands, hemodynamically stable. His hemodynamics have been stable and WNL. Neuro: - sedation holiday has been provided - he will need PT/OT - pain controll with fentanyl [employer] transition to oral over the next 24 to 48 hours CV - ASA and Statin - Epi has been weaned - moniotr hemodynamics invasively - monitor chest tube output - sternal precautions Pulm - fast track extubation successful - IS and lung volume expansion therapy - pt/ot GI - NPO 2 hours post extubations then clears and advance - PPI for GERD Renal - monitor UOP with rios for strict I/OS - monitor electrolytes Endo - monitor FSG target < 180 - Insulin gtt transitions to subq coverage over the next 24 hours Heme - monitor h/h - transfuse for hbg < 7 Skin: - sternal and graft site wound care MSK: - pt/ot Case discuss with Dr. Cale Gutierrez I have seen and examined the patient with Dr. Gutierrez. I agree with his assessment and plan, additions and corrections if any are below. I have discussed the case with the bedside nurse and the plan has been communicated to the primary team. Addendum I have seen and examined the patient with Dr. Gutierrez. I agree with his assessment and plan, by additions and corrections if any are below. I have discussed the case with the bedside Cale, nurse and the plan has been communicated to the primary team. [facility] Neuro - avoid narcotics if possible. Deconditioning concerning, PT working with patient. on Patient to walk first time today. 03/16/2016 CV - per HF service. 15:30 RESP - After assessment of his respiratory status based on vital capacity, rapid shallow breathing index (f/VT, <105, post-extubation failure is reported 5-10%), negative inspiratory force, presence of good cuff leak, and absence of large secretions, I deemed him a suitable candidate for extubation. Atelectasis/Incentive spirometer. Volume expansion procotol. Chest tube output will be monitored. We are anticipating that with mobility, patient's atelecatsis will improve. ABD - Soft, can advance to clears and then full liquid RENAL - Making urine about 30cc/hr. HEME- Monitoring hemoglobin and platelets. Blood loss anemia. Starting heparin sq for DVT prophylaxis. ID - S/p standard post-op antibiotics. ENDO - Transitioned yesterday from insulin gtt. Quality bundle: Sugars are ok VTE prophylaxis with heparin gtt. HOB > 30 degree Bundle is in electronic chart as here. PT consult placed, PT working with patient. Peripheral IVs being placed. Cordis will be removed. Nutrition is ok, and will be optimized with advancement. Lines and tubes are dated and are appropriate Occlusive dressing present All these quality measures discussed with nursing Critical care performed (35 minutes + reviewed 45minutes). Time is exclusive of separately billable procedures. Time includes: direct patient care, patient reassessment, coordination of patient care, interpretation of data (laboratory data, pulse oximetry, arterial blood gases and chest xrays), availability on ICU to care for patient and documentation. Extracted from: Title: [facility] Inpatient History and Author: Reyna Mcfarland MD Date: 03/15/16 Physical Patient: JILLIAN CONTEH Age: 75 years Sex: Male : 1940 Associated Diagnoses: None Author: Reyna Mcfarland MD Basic Information Referral source Chief Complaint Unable to obtain, intubated History of Present Illness Patient, intuabted hx obtained from EMR. 75 yo male with PMH of CAD s/p PCI 2005 on proximal LAD, DM, HTN, and HLD. 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 A TTE on 2014 showed an EF of 60-64%. Patient underwent 4v CABG today 03/15/16. ACB (JORDAN to LAD, GSVG to OM, GSVG to Diagonal, GSVG to RCA), LLE EVH above and below knee. CPB: 120 min Crossclamp time: 66 min IVF: 1800 cc crystalloid EBL: 2000 cc Transfusions: none Cell Saver: 3 units Urine Output: 1060 ccDrains: 3 chest tubes (anterior mediastinal, posterior mediastinal, left pleural) Review of Systems Unable to obtain. patient intubated Health Status Allergies: Allergic Reactions (All) Severity Not Documented NKDA- No reactions were documented. Current medications: Home Medications (12) Active aspirin 81 mg tablet, chewable 1 tab, PO, Daily enalapril 2.5 mg oral tablet 1 tab, PO, Daily isosorbide mononitrate 60 mg oral tablet, extended release 60 mg=1 tab, PO, QAM metFORMIN 500 mg oral tablet 500 mg=1 tab, PO, Daily multivitamin 1 tab, PO, Daily Nitrostat 0.4 mg sublingual tablet 1 tab, PRN, SL, Q5Min omega-3 polyunsaturated fatty acids ethyl esters 1000 mg oral capsule 1,000 mg=1 cap, PO, BID omeprazole 20 mg oral enteric coated tablet 1 tab, PO, BID Prostate 2.4 1 cap, PO, Daily Ranexa 500 mg oral tablet, extended release 500 mg=1 tab, PO, BID tamsulosin 0.4 mg oral capsule 0.8 mg=2 cap, PO, Daily Toprol-XL 25 mg oral tablet, extended release 1 tab, PO, Daily , Medications (28) Active Scheduled: (11) aspirin 300 mg rect SUPP 300 mg 1 supp, TN, Daily aspirin 325 mg TAB 325 mg 1 tab, NG, Daily atorvastatin 40mg tab 40 mg 1 tab, PO, Bedtime ceFAZolin 2gm / NS 100ml (Premixed) 2 gm 100 mL, IVPB, ONCALL ceFAZolin 2gm / NS 100ml (Premixed) 2 gm 100 mL, IVPB, ABXQ8H docusate sodium 100 mg CAP 100 mg 1 cap, PO, BID metoprolol 5 mg/5 ml INJ 2 mg 2 mL, IVP, ONCE pantoprazole 40 mg INJ 40 mg, IVP, Daily sodium chloride 0.9% 10 ml flush syr BD 5 ml, MISC, Q12H Sodium Chloride 0.9% IV 250 mL, IV, ONCE vancomycin 750 mg INJ VL + sodium chloride 0.9% INJ 150 mL 750 mg, IVPB, [id number] Continuous: (4) fentaNYL AIR[employer] RAMP AGENT 20 micrograms/ml 30 ml 600 microgram 600 microgram 30 mL, IV insulin reg human rec 100 unit/ml INJ 1ml 100 unit + sodium chloride 0.9% INJ 99 mL 99 mL, IVPB niCARdipine 40 mg/ NS 200 ml IV Soln (premix) 40 mg 40 mg 200 mL, IV sodium chloride 0.9% INJ 250 mL 250 mL, IV PRN: (13) acetaminophen 325 mg TABLET 650 mg 2 tab, PO, Q4H acetaminophen 650 mg rect SUPP 650 mg 1 supp, TN, Q4H acetaminophen-hydrocodone 325-10mg TAB 1 tab, PO, Q4H acetaminophen-hydrocodone 325-10mg TAB 2 tab, PO, Q4H Dextrose 50% 50 ml INJ syringe 25 gm 50 mL, IVP, PRN Dextrose 50% 50 ml INJ syringe 12.5 gm 25 mL, IVP, PRN fentaNYL 100 microgram/2 ml INJ 25 microgram 0.5 mL, IVP, Q2H hydrALAZINE 20 mg/1 ml VL 10 mg 0.5 mL, IVP, Q6H labetalol 100 mg/20 ml VL 10 mg 2 mL, IVP, Q4H metoprolol 5 mg/5 ml INJ 2.5 mg 2.5 mL, IVP, Q4H naloxone 0.4 mg/ml 1ml INJ vial 0.04 mg 0.1 mL, IVP, Q2MIN ondansetron 4 mg/2ml INJ VL 4 mg 2 mL, IV, Q6H sodium chloride 0.9% 10 ml flush syr BD 5 ml, MISC, PRN Histories Past Medical History: Resolved CAD - Coronary artery disease (3222252743): Resolved. Angina (847234212): Resolved. GERD (gastroesophageal reflux disease) ([id number]): Resolved. HTN (hypertension) ([id number]): Resolved. HLD (hyperlipidemia) ([id number]): Resolved. Left ventricular hypertrophy (07243394): Resolved. Murmur (2566961800): Resolved. Diabetes ([id number]): Resolved. Hypertension (53751230): Resolved. Hyperlipidemia (18867105): Resolved. Coronary artery disease (2166884758): Resolved. Angina (164066829): Resolved. Family History: Hypertension Mother Heart disease Mother Chest pain Mother Procedure history (This Hospitalization): Cardiac catheterization, left heart ([id number]). Comments: 02/16/2016 11:38 - Víctor Guillermo RN stent to LAD Physical Examination VS/Measurements Measurements from flowsheet : Measurements 03/15/2016 16:29 Heparin Dosing Weight (kg) 75.56 03/15/2016 16:24 Heparin Dosing Weight (kg) 76.94 03/15/2016 16:24 Weight 86.3 kg Dosing Weight Difference Percent 0 % Dosing Weight Collection Method Measured 03/15/2016 15:00 Height 172.72 cm Height Collection Method Stated Weight 86.3 kg Dosing Weight Difference Percent 0 % Dosing Weight Collection Method Measured Body Surface Area 2.0348 m2 Body Mass Index 28.93 m2 03/15/2016 09:37 Heparin Dosing Weight (kg) 76.94 03/15/2016 09:37 Heparin Dosing Weight (kg) 76.94 03/15/2016 09:37 Weight 86.3 kg Dosing Weight Difference Percent 0 % Dosing Weight Collection Method Measured 03/15/2016 09:36 Weight 86.3 kg Dosing Weight Difference Percent -0.074 % Dosing Weight Collection Method Measured , Vital Signs (last 24 hrs) Last Charted Heart Rate Yrdrah49 bpm (MAR 15 16:00) Resp Rate H 21BRMIN (MAR 15 16:00) SBPH 149mmHg (MAR 15 06:30) DBP75 mmHg (MAR 15 06:30) WrS2259 % (MAR 15 16:00) Mjaxeq09.3 kg (MAR 15 16:24) Puxqon436.72 cm (MAR 15 15:00) BMI28.93 (MAR 15 15:00) , VitalsTmp(F)RyqkoMDEQQjQ6EVO0 03/15 16:00----76-----29933--- 03/15 15:30----80-----7100--- 03/15 15:00----83-----7100--- 03/15 14:4597.781-----2198--- 03/15 14:30----79-----44640 40% 24 Hr Tmax: 98.0F (36.67c) at 03/15 06:30Vital Signs are the last 5 in the past 48 hours. Intake and Output I/O Intake OutputBalance 03/15/20167a-3p 3160.49 3160.00 0.49 3p-11p 0.00 85.00 -85.00As of 16:35 11p-7a 0.00 0.00 0.00 Totals 3160.49 3245.00 -84.51 03/14/20167a-3p 0.00 0.00 0.00 3p-11p 0.00 0.00 0.00 11p-7a 0.00 0.00 0.00 Totals 0.00 0.00 0.00 03/13/20167a-3p 0.00 0.00 0.00 3p-11p 0.00 0.00 0.00 11p-7a 0.00 0.00 0.00 Totals 0.00 0.00 0.00 Objective VS/Measurements Measurements from flowsheet : Measurements 03/15/2016 16:29 Heparin Dosing Weight (kg) 75.56 03/15/2016 16:24 Heparin Dosing Weight (kg) 76.94 03/15/2016 16:24 Weight 86.3 kg Dosing Weight Difference Percent 0 % Dosing Weight Collection Method Measured 03/15/2016 15:00 Height 172.72 cm Height Collection Method Stated Weight 86.3 kg Dosing Weight Difference Percent 0 % Dosing Weight Collection Method Measured Body Surface Area 2.0348 m2 Body Mass Index 28.93 m2 03/15/2016 09:37 Heparin Dosing Weight (kg) 76.94 03/15/2016 09:37 Heparin Dosing Weight (kg) 76.94 03/15/2016 09:37 Weight 86.3 kg Dosing Weight Difference Percent 0 % Dosing Weight Collection Method Measured 03/15/2016 09:36 Weight 86.3 kg Dosing Weight Difference Percent -0.074 % Dosing Weight Collection Method Measured , Vital Signs (last 24 hrs) Last Charted Heart Rate Paxgjt31 bpm (MAR 15 16:00) Resp Rate H 21BRMIN (MAR 15 16:00) SBPH 149mmHg (MAR 15 06:30) DBP75 mmHg (MAR 15 06:30) RbU6393 % (MAR 15 16:00) Gzafua65.3 kg (MAR 15 16:24) Dboaow728.72 cm (MAR 15 15:00) BMI28.93 (MAR 15 15:00) GENERAL: Intubated. Alert and awake. In no acute distress. HEENT: Normocephalic, atraumatic. Pupils equal, round, reactive to light, extraocular movement intact. NECK: Supple, no thyromegaly, no lymphadenopathy, no JVD. CARDIOVASCULAR: Normal S1, S2, no rubs, gallops, or murmurs. LUNGS: Clear to auscultation bilaterally. No wheezes, rhonchi, or rales. ABDOMEN: Normoactive bowel sounds, soft, nontender, nondistended. EXTREMITIES: 2+ pulses. No clubbing, cyanosis or edema. Can move extremities. NEURO: Deffered until patient extubated. Review / Management Results review: Labs (Last four charted values) WBC H 21.2(MAR 15)5.3(MAR 15) Hgb 14.3(MAR 15)15.9(MAR 15) Hct 42.3(MAR 15)46.2(MAR 15) Plt 135(MAR 15)158(MAR 15) Na 145(MAR 15)142(MAR 15) K 4.1(MAR 15)3.8(MAR 15) CO2 L 23(MAR 15)26(MAR 15) Cl H 110(MAR 15)107(MAR 15) Cr 1.23(MAR 15)1.24(MAR 15) BUN 14(MAR 15)14(MAR 15) Glucose Random H 168(MAR 15)H 110(MAR 15) Mg 2.3(MAR 15)H 2.5(MAR 15) Phos 3.9(MAR 15)3.2(MAR 15) Ca L 7.6(MAR 15)8.9(MAR 15) PT H 17.1(MAR 15)13.8(MAR 15) INR H 1.36(MAR 15)1.03(MAR 15) PTT 31.4(MAR 15)35.0(MAR 15). Laboratory Results Radiology results Discussed with radiologist Cardiology Results Left ventricular ejection fraction: 03/15/2016 16:00 SpO2 arnbmgc920 03/15/2016 14:30 Invasive Vent VthcXvtu-HYMQ-OJ Pressure Ldegejv39 PEEP/CPAP5 FIO2 (%)40 03/15/2016 14:21 Vent Start Time03/15/2016 14:15 Tidal Brngzc489 Resp Rate, Set16 Mean Airway Pressure8.1 Ambu Bag Mask to O2Yes Resp Rate, Lrqilz27 Exhaled Tidal Vol (ml)481 Peak Pressure (cmH2O)19 Inspiratory Time1.0 Airway Tube Size8.0 Kevin at Lip/Nare (cm)24 ET Tube PositionMiddle lip up Tube Secured WithTube briones Lines and Tubes: Lines, Tubes, and Drains: 03/15/2016 14:00 PA Line Assessment: Site: Right, Internal jugular 03/15/2016 14:00 Chest Tube Assessment: Left lateral 36 [place] 03/15/2016 12:55 Arterial Lines: Single lumen Radial artery Right 20 gauge 03/15/2016 12:42 Chest Tube Assessment: Mediastinal 36 [place] 03/15/2016 11:57 Chest Tube Assessment: Left anterior 36 [place] 03/15/2016 09:32 Central Lines: Internal jugular, left Non-tunneled (most common) Triple 03/15/2016 09:31 Indwelling Urinary Catheter: Urethral 16 [place] Indwelling/Continuous 03/15/2016 06:15 Peripheral Lines: Antecubital Left 20 gauge Over the needle catheter . Impression and Plan CAD s/p PCI 2005 on proximal LAD, DM, HTN, and HLD who underwent 4v CABG 03/15/16. 1. CAD s/p CABG- ACB (JORDAN to LAD, GSVG to OM, GSVG to Diagonal, GSVG to RCA), LLE EVH above and below knee. 02/23/16 EF was found to be 40-45% continue ASA and Statin plan of fast track and extuabted today post op pain managment, [address] [place] shows SVO2 45%, CVP 9, LA 4.3 2.HTN- patient boderline pressures, will montior closely off pressors 3.HLD- cont statin 4.DM- hold metformin, ISS once extubated and eating dvt ppx- scd Addendum Cardiology attending attestation: by Bartolo, Patient seen and examined with Dr Nova on 03/15/2016. Please see note for details. Reyna CC: unable to assess [facility] Laboratory, ECG, telemetry and radiologic results have been reviewed. on Our plan is to continue post-CABG care. Fast-track extubation. He's on no 03/15/2016 pressors/inotropes at this time. 17:48 Dr Nova and I have discussed and formulated the plan together. Extracted from: Title: [facility] Author: Amita Floyd Date: 03/15/16 ADVANCED HEART FAILURE/CV SURGERY BRIEF OP NOTE Preop Diagnosis: CAD Postop Diagnosis: same Procedures: 4v ACB (JORDAN to LAD, GSVG to OM, GSVG to Diagonal, GSVG to RCA), LLE EVH above and below knee Surgeon: Bria Smith MD Co-Surgeon: Candelario Serrato MD Hygiene Teacher: Amita Floyd PA-C (there was no qualified resident available) Surgical PA: Apollo Welch PA-C Anesthesia: General Antibiotics: Ancef 2gm @ 835 am Vancomycin 1.5 gm @ 939 am Pre-op Beta Shasha: dosed his Metoprolol at home last night CPB: 120 min Crossclamp time: 66 min IVF: 1800 cc crystalloid EBL: 2000 cc Transfusions: none Cell Saver: 3 units Urine Output: 1060 cc Drains: 3 chest tubes (anterior mediastinal, posterior mediastinal, left pleural) Complications: none Specimens: none Dictation #: [id number] Disposition: I ICU in stable condition, intubated Extracted from: Title: [facility].H&P Author: Amita Floyd Date: 03/15/16 Based on examination of the patient, there are no changes in the patient's current condition. Original H&P done in clinic by Hyacinth Gomes PA-C on 02/23/16. Amita Floyd PA-C Advanced Heart Failure Transplant/CV Surgery
--- OUTSIDE RECORDS SUMMARY | 2018-08-21 12:25 | XMS REPORT | Summary of Care ---
Author Author [facility] Organization [facility] Address Unknown Phone Unavailable Encounter CADENCE Gordon(SONIA) [id number] Date(s): 02/23/16 - 02/23/16 [facility] [address], [address] [place], [place] [address] Discharge Disposition: Home Attending Physician: Oracio Boyd MD Referring Physician: Oracio Boyd MD Vital Signs Most recent to 1 oldest [Reference Range]: Height 175.26 cm (02/23/16 1:48 PM) Temperature Oral 97.4 DegF [96.4-99.1 DegF] (02/23/16 1:48 PM) Blood Pressure 132/77 mmHg [90-140/60-90 mmHg] (02/23/16 1:48 PM) Respiratory Rate 18 BRMIN [14-20 BRMIN] (02/23/16 1:48 PM) Peripheral Pulse 66 bpm Rate [60-100 bpm] (02/23/16 1:48 PM) Weight 86.007 kg (02/23/16 1:48 PM) Body Mass Index 28 m2 (02/23/16 1:48 PM) Problem List Condition Effective Dates Status [...]
--- NOTE | 2018-08-21 13:35 | Diagnostic Imaging Report ---
EXAM: CXR 2 VIEW - HOPD, PA and lateral DATE: 08/21/2018 Time stamp on exam: 12:54 PM INDICATION: Cough COMPARISON: None FINDINGS: LINES/TUBES: Sternotomy wire sutures and multiple small mediastinal clips are present. LUNGS: No consolidations or edema. PLEURA: No effusions or pneumothorax. HEART AND MEDIASTINUM: Normal size and contour. Mild tortuosity of the thoracic aorta. BONES AND SOFT TISSUES: No acute findings. Degenerative changes of the midthoracic spine. IMPRESSION: No acute thoracic abnormality. Signed by: Dr. Kye Perdomo DO on 08/21/2018 1:32 PM
[2018-08-21 13:56] VITALS: BP 140/75
== END 2018-08-21 14:09 | disposition home or self-care (01) ==
LOC: FSED 12:21
DX: R05 Cough (principal); J20.9 Acute bronchitis, unspecified; I10 Essential (primary) hypertension; E11.9 Type 2 diabetes mellitus without complications; E78.00 Pure hypercholesterolemia, unspecified
CPT/HCPCS: 71046; 80048; 83518; 85025; 87400; 99283

== ENCOUNTER 2019-03-28 10:18 | Emergency (ER) | payer MEDICARE ==
[~2019-03-28] VITALS: Ht 175.3 cm; Wt 86.2 kg
--- OUTSIDE RECORDS SUMMARY | 2019-03-28 10:22 | XMS REPORT | Continuity of Care Document ---
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 [facility] HOSPITAL F/U Active 03/21/2016 [facility] SOB Active 02/24/2016 [facility] SYNCOPE Active 02/23/2016 [facility] CORONARY ARTERY DISEASE Active 02/23/2016 [facility] CONSULT FOR CABG Active 02/17/2016 [facility] ABN NUCLEAR STRESS TEST, CAD, CHEST PAIN Active 02/02/2016 [facility] Angina (disorder) Resolved Problem 07/25/2016 [facility] Coronary arteriosclerosis (disorder) Resolved Problem 07/25/2016 [facility] Gastroesophageal reflux disease (disorder) Resolved Problem 07/25/2016 [facility] Hyperlipidemia (disorder) Resolved Problem 07/25/2016 [facility] Hypertensive disorder, systemic arterial (disorder) Resolved Problem 07/25/2016 [facility] Left ventricular hypertrophy (disorder) Resolved Problem 07/25/2016 [facility] Murmur (finding) Resolved Problem 07/25/2016 [facility] Diabetes mellitus (disorder) Resolved Problem 07/25/2016 [facility] ENCNTR FOR GENERAL ADULT MEDICAL EXAM W/ Active [facility] SYNCOPE AND COLLAPSE Active [facility] SHORTNESS OF BREATH Active [facility] OTHER SPECIFIED CONGENITAL DEFORMITIES Active [facility] PRESENCE OF AORTOCORONARY BYPASS GRAFT Active [facility] Medications Medication Details Route Status Patient Instructions Ordering Provider Order Date Source Acetaminophen 300 MG / Codeine Phosphate 30 MG Oral Tablet [Tylenol with Codeine #3] 1 tab, PO, Q8H, X 7 day, # 21 tab, 0 Refill(s) Active 03/21/2016 [facility] atorvastatin 40 mg oral tablet 40 mg=1 tab, PO, Daily, # 30 tab, 3 Refill(s) Active 03/21/2016 [facility] 24 HR Metoprolol Tartrate 100 MG Extended Release Tablet [Toprol] 100 mg=1 tab, PO, Daily, # 30 tab, 3 Refill(s) Active 03/21/2016 [facility] Dulcolax Laxative 10 mg, 1 supp, Route: AK, Drug form: SUPP, ONCE, Dosing Weight 86.3, kg, PRN as needed for constipation, Start date: 03/20/16 16:26:00 CDTNotes: (Same As: Dulcolax, Bisco-Lax) Inactive 03/20/2016 [facility] metoprolol tartrate 50 mg, 1 tab, Route: PO, Drug form: TAB, Q12H, Dosing Weight 86.3, kg, Start date: 03/18/16 21:00:00 CDT, Stop date: 04/17/16 9:00:00 CDTNotes: (Same as: Lopressor) No Longer Active 03/19/2016 [facility] Lactulose 10 gm, 15 mL, Route: PO, Drug Form: SYRP, Dosing Weight 86.3, kg, ONCE, Start date: 03/18/16 2:48:00 CDT, Stop date: 03/18/16 2:48:00 CDTNotes: (Same as:Chronulac) Inactive 03/18/2016 [facility] metoprolol tartrate 12.5 mg, 1 tab, Route: PO, Drug form: TAB, Q6H, Dosing Weight 86.3, kg, Start date: 03/17/16 12:00:00 CDT, Duration: 30 day, Stop date: 04/16/16 6:00:00 CDTNotes: (Same as: Lopressor) 12.5mg=1/4 X 50 mg tab. No Longer Active 03/17/2016 [facility] Insulin, Aspart, Human 2 unit, 0.02 mL, [...] days from Date No Longer Active 03/17/2016 [facility] Dextrose 50% Syringe 12.5 gm, 25 mL, Route: IVP, Drug Form: INJ, Dosing Weight 86.3, kg, PRN, PRN Blood Glucose Results, Start date: 03/17/16 11:07:00 CDT, Duration: 30 day, Stop date: 04/16/16 11:06:00 CDT No Longer Active 03/17/2016 [facility] Glucagon 1 mg, Route: IM, Drug form: PDR/INJ, PRN, Dosing Weight 86.3, kg, PRN Blood Glucose Results, Start date: 03/17/16 11:07:00 CDT, Duration: 30 day, Stop date: 04/16/16 11:06:00 CDT No Longer Active 03/17/2016 [facility] Aspirin 81 mg, 1 tab, Route: PO, Drug form: ECTAB, Daily, Dosing Weight 86.364, kg, Start date: 03/17/16 9:00:00 CDT, Stop date: 04/15/16 9:00:00 CDTNotes: Do not crush or chew. (Same As: Ecotrin) No Longer Active 03/17/2016 [facility] sennosides, ALF 8.6 mg, 1 tab, Route: PO, Drug Form: TAB, Dosing Weight 86.3, kg, BID, Start date: 03/17/16 9:00:00 CDT, Duration: 30 day, Stop date: 04/15/16 17:00:00 CDTNotes: (Same as: Senokot) No Longer Active 03/17/2016 [facility] atorvastatin 40 mg, 1 tab, Route: PO, Drug form: TAB, Bedtime, Dosing Weight 86.3, kg, Start date: 03/16/16 21:00:00 CDT, Duration: 30 day, Stop date: 04/14/16 21:00:00 CDTNotes: (Same as: Lipitor) No Longer Active 03/17/2016 [facility] heparin sodium, porcine 2500 UNT/ML Injectable Solution 5,000 unit, 1 mL, Route: SUB-Q, Drug form: INJ, Q8H, Dosing Weight 86.3, kg, Start date: 03/16/16 16:00:00 CDT, Duration: 30 day, Stop date: 04/15/16 8:00:00 CDTNotes: porcine heparin No Longer Active 03/16/2016 [facility] pantoprazole 40 mg, Route: IVP, Drug form: INJ, Daily, Dosing Weight 86.364, kg, Start date: 03/16/16 9:00:00 CDT, Duration: 30 day, Stop date: 04/14/16 9:00:00 CDTNotes: For IV push reconstitute with 10 ml 0.9% sodium chloride and push over 2 minutes. (Same as: Protonix) No Longer Active 03/16/2016 [facility] Aspirin 325 mg, 1 tab, Route: NG, Drug form: TAB, Daily, Dosing Weight 86.364, kg, Start date: 03/16/16 9:00:00 CDT, Duration: 30 day, Stop date: 04/14/16 9:00:00 CDTNotes: Take with food. Inactive 03/16/2016 [facility] Aspirin 300 MG Rectal Suppository 300 mg, 1 supp, Route: AK, Drug form: SUPP, Daily, Dosing Weight 86.364, kg, Start date: 03/16/16 9:00:00 CDT, Duration: 30 day, Stop date: 04/14/16 9:00:00 CDTNotes: Refrigerate. No Longer Active 03/16/2016 [facility] Dextrose 50% Syringe 12.5 gm, 25 mL, Route: IVP, Drug Form: INJ, Dosing Weight 86.3, kg, PRN, PRN Blood Glucose Results, Start date: 03/16/16 8:57:00 CDT, Duration: 30 day, Stop date: 04/15/16 8:56:00 CDT No Longer Active 03/16/2016 [facility] Glucagon 1 mg, Route: IM, Drug form: PDR/INJ, PRN, Dosing Weight 86.3, kg, PRN Blood Glucose Results, Priority: STAT, Start date: 03/16/16 8:57:00 CDT, Duration: 30 day, Stop date: 04/15/16 8:56:00 CDT No Longer Active 03/16/2016 [facility] Insulin, Aspart, Human 4 unit, 0.04 mL, [...] days from Date No Longer Active 03/16/2016 [facility] Protonix 40 mg, 1 tab, Route: PO, Drug form: ECTAB, Before Breakfast, Dosing Weight 86.3, kg, Start date: 03/16/16 7:30:00 CDT, Duration: 30 day, Stop date: 04/14/16 7:30:00 CDTNotes: Tablet should not be chewed or crushed. (Same as: Protonix) No Longer Active 03/16/2016 [facility] Vancomycin 6.67 MG/ML Injectable Solution 750 mg, Route: IVPB, Drug form: PDR/INJ, [id number], Dosing Weight 86.364, kg, Start date: 03/15/16 21:00:00 CDT, Duration: 2 doses or times, Stop date: 03/16/16 9:00:00 CDTNotes: TIME CRITICAL MEDICATION (Same As: Vancocin) Infusion rate 2001 mg: infuse over 2.5 hours No Longer Active 03/16/2016 [facility] ceFAZolin (SCIP) 2 gm, 100 mL, Route: IVPB, Drug form: INJ, ABXQ8H, Dosing Weight 86.3, kg, Start date: 03/15/16 20:00:00 CDT, Duration: 3 doses or times, Stop date: 03/16/16 12:00:00 CDTNotes: Same as: Ancef No Longer Active 03/16/2016 [facility] albumin human 5% intravenous solution 12.5 gm, 250 mL, Route: IV, Drug Form: INJ, Dosing Weight 86.3, kg, ONCE, Start date: 03/15/16 19:19:00 CDT, Stop date: 03/15/16 19:19:00 CDTNotes: LOT#: Mfg: WASTE: F/P - Red; E -Red (Same as: Albuminar) "blood product derivative" Inactive 03/16/2016 [facility] albumin human 25% intravenous solution 25 gm, 100 mL, Route: IVPB, Drug form: INJ, ONCE, Dosing Weight 86.3, kg, Start date: 03/15/16 18:09:00 CDT, Stop date: 03/15/16 18:09:00 CDTNotes: Lot #: Mfg: (Same as: Plasbumin-25) "blood product derivative" WASTE: F/P - Red; E -Red MEDICATION WASTE Product Size: 25 gm Product Wasted: _0_ gm Inactive 03/15/2016 [facility] EPINEPHrine 1 mg/1 ml (PF) INJ AMP [...] Wasted: _0_ mg No Longer Active 03/15/2016 [facility] albumin human 25% intravenous solution 25 gm, 100 mL, Route: IVPB, Drug form: INJ, ONCE, Dosing Weight 86.3, kg, Start date: 03/15/16 17:46:00 CDT, Stop date: 03/15/16 17:46:00 CDTNotes: Lot #: Mfg: (Same as: Plasbumin-25) "blood product derivative" WASTE: F/P - Red; E -Red MEDICATION WASTE Product Size: 25 gm Product Wasted: _0_ gm Inactive 03/15/2016 [facility] Docusate Sodium 100 MG Oral Capsule [Colace] 100 mg, 1 cap, Route: PO, Drug form: CAP, BID, Dosing Weight 86.364, kg, Start date: 03/15/16 17:00:00 CDT, Duration: 30 day, Stop date: 04/14/16 9:00:00 CDTNotes: (Same as: Colace) (Do Not Crush) No Longer Active 03/15/2016 [facility] Insulin, Aspart, Human 4 unit, 0.04 mL, [...] Expires in days from Date Inactive 03/15/2016 [facility] Dextrose 50% Syringe 25 gm, 50 mL, Route: IVP, Drug Form: INJ, Dosing Weight 86.3, kg, PRN, PRN Blood Glucose Results, Start date: 03/15/16 16:45:00 CDT, Duration: 30 day, Stop date: 04/14/16 16:44:00 CDT Inactive 03/15/2016 [facility] Glucagon 1 mg, Route: IM, Drug form: PDR/INJ, PRN, Dosing Weight 86.3, kg, PRN Blood Glucose Results, Start date: 03/15/16 16:45:00 CDT, Duration: 30 day, Stop date: 04/14/16 16:44:00 CDT Inactive 03/15/2016 [facility] Sodium Chloride 0.154 MEQ/ML Injectable Solution 250 mL, 250 ml/hr, Infuse Over: 1 hr, Route: IV, ONCE, Priority: STAT, Dosing Weight 86.3 kg, Start date: 03/15/16 16:33:00 CDT, Duration: 1 doses or times, Stop date: 03/15/16 16:33:00 CDT Inactive 03/15/2016 [facility] sodium chloride 0.9% INJ 250 mL 250 mL, Rate: 500 ml/hr, Infuse over: 0.5 hr, Route: IV, Dosing Weight 86.3 kg, Total Volume: 250, Start date: 03/15/16 16:29:00 CDT, Duration: 1 doses or times, Stop date: 03/15/16 16:58:00 CDT Inactive 03/15/2016 [facility] Sodium Chloride 0.154 MEQ/ML Injectable Solution 250 mL, 250 ml/hr, Infuse Over: 1 hr, Route: IV, ONCE, Priority: Routine, Dosing Weight 86.3 kg, Start date: 03/15/16 15:00:00 CDT, Duration: 1 doses or times, Stop date: 03/15/16 15:00:00 CDT Inactive 03/15/2016 [facility] Fentanyl 600 microgram, 30 mL, Route: IV, [employer] Dose: 10 mcg, [employer] Lockout: 10 minutes, Continuous Basal Rate: 0 mg, 4 Hour Limit (In MCG): 240, Drug Form: INJ, Continuous, Start date: 03/15/16 14:00:00 CDT, Durati on: 30 day, Stop date: 04/14/16 13:59:00 CDTNotes: Concentration is 20 micrograms/ml No Longer Active 03/15/2016 [facility] Naloxone 0.04 mg, 0.1 mL, Route: IVP, Drug form: INJ, Q2MIN, Dosing Weight 86.3, kg, PRN Narcotic Reversal, Start date: 03/15/16 13:40:00 CDT, Duration: 30 day, Stop date: 04/14/16 13:39:00 CDTNotes: Same as Narcan No Longer Active 03/15/2016 [facility] Dextrose 50% Syringe 12.5 gm, 25 mL, Route: IVP, Drug Form: INJ, Dosing Weight 86.3, kg, PRN, PRN Blood Glucose Results, Start date: 03/15/16 13:40:00 CDT, Duration: 30 day, Stop date: 04/14/16 13:39:00 CDT Inactive 03/15/2016 [facility] Insulin regular 100 unit + sodium chloride [...] (Do not shake) No Longer Active 03/15/2016 [facility] Hydralazine 10 mg, 0.5 mL, Route: IVP, Drug form: INJ, Q6H, Dosing Weight 86.3, kg, PRN Hypertension, Start date: 03/15/16 13:40:00 CDT, Duration: 30 day, Stop date: 04/14/16 13:39:00 CDTNotes: (Same as: Apresol ine) Push over 5 minutes No Longer Active 03/15/2016 [facility] Metoprolol 2.5 mg, 2.5 mL, Route: IVP, Drug form: INJ, Q4H, Dosing Weight 86.3, kg, PRN Hypertension, Start date: 03/15/16 13:40:00 CDT, Duration: 30 day, Stop date: 04/14/16 13:39:00 CDTNotes: (Same as: Lopres sor) Push over 2 minutes No Longer Active 03/15/2016 [facility] Labetalol 10 mg, 2 mL, Route: IVP, Drug form: INJ, Q4H, Dosing Weight 86.3, kg, PRN Hypertension, Start date: 03/15/16 13:40:00 CDT, Duration: 30 day, Stop date: 04/14/16 13:39:00 CDT No Longer Active 03/15/2016 [facility] niCARdipine 40 mg/ NS 200 ml IV [...] /1 ml ) No Longer Active 03/15/2016 [facility] Zofran 4 mg, 2 mL, Route: IV, Drug form: INJ, Q6H, Dosing Weight 86.364, kg, PRN Nausea, Start date: 03/15/16 13:40:00 CDT, Duration: 30 day, Stop date: 04/14/16 13:39:00 CDTNotes: (Same as: Zofran) MEDICATION WASTE Product Size: 4 mg Product Wasted: _0_ mg No Longer Active 03/15/2016 [facility] Acetaminophen 325 MG / Hydrocodone Bitartrate 10 MG Oral Tablet 2 tab, Route: PO, Drug Form: TAB, Dosing Weight 86.3, kg, Q4H, PRN Pain Score 4-6, Start date: 03/15/16 13:40:00 CDT, Duration: 30 day, Stop date: 04/14/16 13:39:00 CDTNotes: Do not exceed 4gm/day of acetaminophen. (Same as: [place] 325/10) No Longer Active 03/15/2016 [facility] Fentanyl 25 microgram, 0.5 mL, Route: IVP, Drug form: INJ, Q2H, Dosing Weight 86.3, kg, PRN Pain Score 4-6, Start date: 03/15/16 13:40:00 CDT, Duration: 30 day, Stop date: 04/14/16 13:39:00 CDTNotes: (Same as: Sublimaze) Preservative free. No Longer Active 03/15/2016 [facility] Acetaminophen 650 mg, 2 tab, Route: PO, Drug form: TAB, Q4H, Dosing Weight 86.3, kg, PRN Pain 1-3/Temp > 100.4 F, Start date: 03/15/16 13:40:00 CDT, Duration: 30 day, Stop date: 04/14/16 13:39:00 CDTNotes: Do not exceed 4 gm/day. (Same as: Tylenol) No Longer Active 03/15/2016 [facility] Aspirin 325 MG Oral Tablet 325 mg, 1 tab, Route: NG, Drug form: TAB, ONCE, Dosing Weight 86.364, kg, Start date: 03/15/16 13:40:00 CDT, Stop date: 03/15/16 13:40:00 CDTNotes: Take with food. Inactive 03/15/2016 [facility] sodium bicarbonate (ANES) Route: IV, Drug form: INJ, ONCE, Stop date: 03/15/16 13:23:00 CDT Inactive 03/15/2016 [facility] calcium gluconate (ANES) Route: IV, Drug form: INJ, ONCE, Stop date: 03/15/16 12:53:00 CDT Inactive 03/15/2016 [facility] protamine (ANES) Route: IV, Drug form: INJ, ONCE, Stop date: 03/15/16 12:48:00 CDT Inactive 03/15/2016 [facility] EPINEPHrine (ANES) (ANES) Route: IV, Drug form: INJ, Start date: 03/15/16 11:32:00 CDT, Stop date: 03/15/16 12:32:00 CDT Inactive 03/15/2016 [facility] heparin (ANES) Route: IV, Drug form: INJ, ONCE, Stop date: 03/15/16 9:52:00 CDT Inactive 03/15/2016 [facility] ceFAZolin (ANES) Route: IV, Drug form: INJ, ONCE, Stop date: 03/15/16 9:06:00 CDT Inactive 03/15/2016 [facility] vancomycin (ANES) (ANES) Route: IV, Drug form: INJ, Start date: 03/15/16 8:39:00 CDT, Stop date: 03/15/16 9:39:00 CDT Inactive 03/15/2016 [facility] tranexamic acid (ANES) (ANES) Route: IV, Drug form: INJ, Start date: 03/15/16 8:38:00 CDT, Stop date: 03/15/16 9:38:00 CDT Inactive 03/15/2016 [facility] esmolol (ANES) Route: IV, Drug form: INJ, ONCE, Stop date: 03/15/16 8:26:00 CDT Inactive 03/15/2016 [facility] rocuronium (ANES) Route: IV, Drug form: INJ, ONCE, Stop date: 03/15/16 8:21:00 CDT Inactive 03/15/2016 [facility] propofol (ANES) Route: IV, Drug form: INJ, ONCE, Stop date: 03/15/16 8:21:00 CDT Inactive 03/15/2016 [facility] lidocaine (ANES) Route: IV, Drug form: INJ, ONCE, Stop date: 03/15/16 8:21:00 CDT Inactive 03/15/2016 [facility] fentaNYL (ANES) Route: IV, Drug form: INJ, ONCE, Stop date: 03/15/16 8:21:00 CDT Inactive 03/15/2016 [facility] midazolam (ANES) Route: IV, Drug form: SOLN, ONCE, Stop date: 03/15/16 8:21:00 CDT Inactive 03/15/2016 [facility] sodium chloride 0.9% 500 ml INJ (ANES) Route: IV, Total Volume: 500, Start date: 03/15/16 8:15:00 CDT, Stop date: 03/15/16 9:15:00 CDT Inactive 03/15/2016 [facility] sodium chloride 0.9% 1000 ml INJ (ANES) Route: IV, Total Volume: 1,000, Start date: 03/15/16 7:43:00 CDT, Stop date: 03/15/16 8:43:00 CDT Inactive 03/15/2016 [facility] Saline Flush 0.9% 5 ml, Route: MISC, Drug Form: INJ, Dosing Weight 86.364, kg, Q12H, Start date: 03/14/16 21:00:00 CDT, Duration: 30 day, Stop date: 04/13/16 9:00:00 CDTNotes: (Same as: BD Posiflush) No Longer Active 03/15/2016 [facility] Cefazolin 2 gm, 100 mL, Route: IVPB, Drug form: INJ, ONCALL, Dosing Weight 86.364, kg, Start date: 03/14/16 14:00:00 CDT, Duration: 30 day, Stop date: 04/13/16 13:59:00 CDTNotes: Same as: Ancef No Longer Active 03/14/2016 [facility] Saline Flush 0.9% 5 ml, Route: MISC, Drug Form: INJ, Dosing Weight 86.364, kg, PRN, PRN Line Flush, Start date: 03/14/16 13:33:00 CDT, Duration: 30 day, Stop date: 04/13/16 13:32:00 CDTNotes: (Same as: BD Posiflush) No Longer Active 03/14/2016 [facility] Metoprolol 2 mg, 2 mL, Route: IVP, Drug form: INJ, ONCE, Dosing Weight 86.364, kg, Start date: 03/14/16 13:33:00 CDT, Duration: 1 doses or times, Stop date: 03/14/16 13:33:00 CDTNotes: (Same as: Lopressor) Push over 2 minutes No Longer Active 03/14/2016 [facility] sodium chloride 0.9% INJ 250 mL 250 mL, Rate: Titrate, Dosing Weight 86.364, kg, Route: IV, Total Volume: 250, Start Date: 03/14/16 13:33:00 CDT, Duration: 30 day, Stop date: 04/13/16 13:32:00 CDT, Replace Every: 24 hr No Longer Active 03/14/2016 [facility] acetaminophen-codeine #3 1 tab, Route: PO, Drug Form: TAB, Dosing Weight 86.364, kg, Q4H, PRN Pain Score 4-6, Start date: 02/16/16 17:18:00 CDT, Duration: 30 day, Stop date: 03/17/16 17:17:00 CDTNotes: Do not exceed 4gm/day of acetaminophen. (Same as: Tylenol with Codeine # 3) No Longer Active 02/16/2016 [facility] Sodium Chloride 0.154 MEQ/ML Injectable Solution 250 mL, 250 ml/hr, Infuse Over: 1 hr, Route: IV, 250, Drug form: INJ, ONCE, Dosing Weight 86.364 kg, Start date: 02/16/16 17:18:00 CDT, Duration: 1 doses or times, Stop date: 02/16/16 17:18:00 CDT Inactive 02/16/2016 [facility] Prostate 2.4 1 cap, PO, Daily, 0 Refill(s) Active 02/16/2016 [facility] 12 HR ranolazine 500 MG Extended Release Tablet [Ranexa] 500 mg=1 tab, PO, BID, # 60 tab, 0 Refill(s) Active 02/16/2016 [facility] isosorbide mononitrate 60 mg oral tablet, extended release 60 mg=1 tab, PO, QAM, # 90 tab, 3 Refill(s) Active 02/16/2016 [facility] tamsulosin 0.4 mg oral capsule 0.4 mg=1 cap, PO, Daily, # 90 cap, 0 Refill(s) Active 02/16/2016 [facility] Metformin hydrochloride 500 MG Oral Tablet 500 mg=1 tab, PO, BID-Meals, # 180 tab, 1 Refill(s) Active 02/16/2016 [facility] Aspirin (Aspir 81) 81 Mg Tablet. Active [facility] Atorvastatin Calcium 20 Mg Tablet Bedtime Active [facility] Furosemide (Lasix) 20 Mg Tablet Daily Active [facility] Lisinopril 10 Mg Tablet Daily Active [facility] Metformin Hcl 500 Mg Tablet Twice A Day Active [facility] Metoprolol Succinate 50 Mg Tab.er.24h Daily Active [facility] Tamsulosin Hcl 0.4 Mg Cap.er.24h Active [facility] Allergies, Adverse Reactions, Alerts No Known Medication Allergies Immunizations Immunization Date Given Site Status Last Updated Comments Source pneumococcal 23-valent vaccine 03/17/2006 Right arm completed [facility] Results Order Name Results Value Reference Range Date Interpretation Comments Source BODY FLUIDS pH BF 7.50 03/21/2016 [facility] BODY FLUIDS pH BF Type Pleural (03/21/16 2:38 PM) 03/21/2016 [facility] BODY FLUIDS LDH BF Type Pleural *NA* (03/21/16 2:38 PM) 03/21/2016 [facility] BODY FLUIDS LDH BF 391 03/21/2016 [facility] BODY FLUIDS Prot BF Type Pleural *NA* (03/21/16 2:38 PM) 03/21/2016 [facility] BODY FLUIDS Protein BF 3.0 03/21/2016 [facility] BODY FLUIDS Clarity BF Marked *ABN* (03/21/16 2:38 PM) Clear 03/21/2016 [facility] [place] [address] 03/21/2016 [facility] BODY FLUIDS WBC BF 578 03/21/2016 [facility] BODY FLUIDS Color BF Red *ABN* (03/21/16 2:38 PM) Colorless 03/21/2016 [facility] FLUIDS CellCnt BF Type Pleural (03/21/16 2:38 PM) 03/21/2016 [facility] BODY FLUIDS Lymph BF 31 03/21/2016 [facility] BODY FLUIDS Segs BF 37 03/21/2016 [facility] BODY FLUIDS Eos BF 4 03/21/2016 [facility] BODY FLUIDS Macrophage BF 28 03/21/2016 [facility] CHEM PANEL Magnesium Lvl 2.2 1.8 - 2.4 03/21/2016 [facility] CHEM PANEL eGFR 74 03/21/2016 Result Comment: The eGFR is calculated [...] should be multiplied by the estimated BMI. [facility] CHEM PANEL CO2 26 24 - 32 03/21/2016 [facility] CHEM PANEL Calcium Lvl 8.4 8.5 - 10.5 03/21/2016 [facility] CHEM PANEL Sodium Lvl 135 135 - 145 03/21/2016 [facility] CHEM PANEL Creatinine Lvl 0.98 0.50 - 1.40 03/21/2016 [facility] CHEM PANEL Potassium Lvl 4.4 3.5 - 5.1 03/21/2016 [facility] CHEM PANEL Chloride Lvl 101 95 - 109 03/21/2016 [facility] CHEM PANEL Glucose Lvl 106 70 - 99 03/21/2016 [facility] CHEM PANEL BUN 13 7 - 22 03/21/2016 [facility] CHEM PANEL AGAP 12.4 10.0 - 20.0 03/21/2016 [facility] CHEM PANEL Phosphorus 3.3 2.5 - 4.5 03/21/2016 [facility] HEMATOLOGY Platelet 234 133 - 450 03/21/2016 [facility] HEMATOLOGY MPV 9.5 7.4 - 10.4 03/21/2016 [facility] HEMATOLOGY Hct 26.3 42.0 - 54.0 03/21/2016 [facility] HEMATOLOGY MCH 30.1 27.0 - 31.0 03/21/2016 [facility] HEMATOLOGY RDW 14.1 11.5 - 14.5 03/21/2016 [facility] HEMATOLOGY MCV 86.5 80.0 - 94.0 03/21/2016 [facility] HEMATOLOGY MCHC 34.8 32.0 - 36.0 03/21/2016 [facility] HEMATOLOGY WBC 7.5 3.7 - 10.4 03/21/2016 [facility] HEMATOLOGY RBC 3.04 4.70 - 6.10 03/21/2016 [facility] HEMATOLOGY Hgb 9.2 14.0 - 18.0 03/21/2016 [facility] HEMATOLOGY Polychrom Moderate *ABN* (03/21/16 5:11 AM) None Seen 03/21/2016 [facility] HEMATOLOGY Monocytes # 0.8 0.0 - 0.8 03/21/2016 [facility] HEMATOLOGY Lymphocytes # 1.7 1.0 - 5.5 03/21/2016 [facility] HEMATOLOGY Eosinophils # 0.2 0.0 - 0.5 03/21/2016 [facility] HEMATOLOGY Hypochrom 1+ (03/21/16 5:11 AM) None Seen 03/21/2016 [facility] HEMATOLOGY Lymphocytes 22.7 20.0 - 40.0 03/21/2016 [facility] HEMATOLOGY Monocytes 11.3 2.0 - 12.0 03/21/2016 [facility] HEMATOLOGY Segs 63.6 45.0 - 75.0 03/21/2016 [facility] HEMATOLOGY Basophils 0.4 0.0 - 1.0 03/21/2016 [facility] HEMATOLOGY Segs-Bands # 4.8 1.5 - 8.1 03/21/2016 [facility] HEMATOLOGY Eosinophils 2.0 0.0 - 4.0 03/21/2016 [facility] CHEM PANEL Magnesium Lvl 2.2 1.8 - 2.4 03/20/2016 [facility] CHEM PANEL eGFR 69 03/20/2016 Result Comment: The eGFR is calculated [...] should be multiplied by the estimated BMI. [facility] CHEM PANEL Creatinine Lvl 1.04 0.50 - 1.40 03/20/2016 [facility] CHEM PANEL BUN 14 7 - 22 03/20/2016 [facility] CHEM PANEL Glucose Lvl 100 70 - 99 03/20/2016 [facility] CHEM PANEL Calcium Lvl 8.1 8.5 - 10.5 03/20/2016 [facility] CHEM PANEL CO2 27 24 - 32 03/20/2016 [facility] CHEM PANEL Chloride Lvl 104 95 - 109 03/20/2016 [facility] CHEM PANEL Potassium Lvl 4.0 3.5 - 5.1 03/20/2016 [facility] CHEM PANEL Sodium Lvl 140 135 - 145 03/20/2016 [facility] CHEM PANEL AGAP 13.0 10.0 - 20.0 03/20/2016 [facility] CHEM PANEL Phosphorus 3.2 2.5 - 4.5 03/20/2016 [facility] HEMATOLOGY MPV 9.4 7.4 - 10.4 03/20/2016 [facility] HEMATOLOGY RDW 13.7 11.5 - 14.5 03/20/2016 [facility] HEMATOLOGY MCHC 34.9 32.0 - 36.0 03/20/2016 [facility] HEMATOLOGY Platelet 178 133 - 450 03/20/2016 [facility] HEMATOLOGY MCH 30.1 27.0 - 31.0 03/20/2016 [facility] HEMATOLOGY RBC 2.92 4.70 - 6.10 03/20/2016 [facility] HEMATOLOGY Hgb 8.8 14.0 - 18.0 03/20/2016 [facility] HEMATOLOGY Hct 25.1 42.0 - 54.0 03/20/2016 [facility] HEMATOLOGY MCV 86.2 80.0 - 94.0 03/20/2016 [facility] HEMATOLOGY WBC 7.6 3.7 - 10.4 03/20/2016 [facility] HEMATOLOGY Segs-Bands # 4.3 1.5 - 8.1 03/20/2016 [facility] HEMATOLOGY Monocytes # 0.8 0.0 - 0.8 03/20/2016 [facility] HEMATOLOGY Lymphocytes # 2.3 1.0 - 5.5 03/20/2016 [facility] HEMATOLOGY Eosinophils # 0.2 0.0 - 0.5 03/20/2016 [facility] HEMATOLOGY Basophils 0.3 0.0 - 1.0 03/20/2016 [facility] HEMATOLOGY Segs 56.9 45.0 - 75.0 03/20/2016 [facility] HEMATOLOGY Monocytes 10.6 2.0 - 12.0 03/20/2016 [facility] HEMATOLOGY Lymphocytes 29.6 20.0 - 40.0 03/20/2016 [facility] HEMATOLOGY Eosinophils 2.6 0.0 - 4.0 03/20/2016 [facility] HEMATOLOGY PTT 46.0 22.9 - 35.8 03/20/2016 [facility] HEMATOLOGY INR 1.11 0.85 - 1.17 03/20/2016 [facility] HEMATOLOGY PT 14.6 12.0 - 14.7 03/20/2016 [facility] CHEM PANEL eGFR 76 03/19/2016 Result Comment: The eGFR is calculated [...] should be multiplied by the estimated BMI. [facility] CHEM PANEL Creatinine Lvl 0.96 0.50 - 1.40 03/19/2016 [facility] CHEM PANEL BUN 17 7 - 22 03/19/2016 [facility] CHEM PANEL Glucose Lvl 114 70 - 99 03/19/2016 [facility] CHEM PANEL CO2 25 24 - 32 03/19/2016 [facility] CHEM PANEL Calcium Lvl 8.3 8.5 - 10.5 03/19/2016 [facility] CHEM PANEL Chloride Lvl 104 95 - 109 03/19/2016 [facility] CHEM PANEL Potassium Lvl 3.7 3.5 - 5.1 03/19/2016 [facility] CHEM PANEL Sodium Lvl 138 135 - 145 03/19/2016 [facility] CHEM PANEL AGAP 12.7 10.0 - 20.0 03/19/2016 [facility] CHEM PANEL Phosphorus 2.7 2.5 - 4.5 03/19/2016 [facility] CHEM PANEL Magnesium Lvl 2.2 1.8 - 2.4 03/19/2016 [facility] HEMATOLOGY Eosinophils # 0.1 0.0 - 0.5 03/19/2016 [facility] HEMATOLOGY Lymphocytes # 1.7 1.0 - 5.5 03/19/2016 [facility] HEMATOLOGY Segs-Bands # 6.0 1.5 - 8.1 03/19/2016 [facility] HEMATOLOGY Monocytes # 0.7 0.0 - 0.8 03/19/2016 [facility] HEMATOLOGY Monocytes 8.8 2.0 - 12.0 03/19/2016 [facility] HEMATOLOGY Basophils 0.3 0.0 - 1.0 03/19/2016 [facility] HEMATOLOGY Eosinophils 0.8 0.0 - 4.0 03/19/2016 [facility] HEMATOLOGY Segs 70.2 45.0 - 75.0 03/19/2016 [facility] HEMATOLOGY Lymphocytes 19.9 20.0 - 40.0 03/19/2016 [facility] HEMATOLOGY INR 1.07 0.85 - 1.17 03/19/2016 [facility] HEMATOLOGY PT 14.2 12.0 - 14.7 03/19/2016 [facility] HEMATOLOGY PTT 39.6 22.9 - 35.8 03/19/2016 [facility] HEMATOLOGY RBC 2.96 4.70 - 6.10 03/19/2016 [facility] HEMATOLOGY WBC 8.5 3.7 - 10.4 03/19/2016 [facility] HEMATOLOGY RDW 13.9 11.5 - 14.5 03/19/2016 [facility] HEMATOLOGY MCHC 34.0 32.0 - 36.0 03/19/2016 [facility] HEMATOLOGY Platelet 153 133 - 450 03/19/2016 [facility] HEMATOLOGY MPV 9.7 7.4 - 10.4 03/19/2016 [facility] HEMATOLOGY Hct 25.6 42.0 - 54.0 03/19/2016 [facility] HEMATOLOGY Hgb 8.7 14.0 - 18.0 03/19/2016 [facility] HEMATOLOGY MCH 29.4 27.0 - 31.0 03/19/2016 [facility] HEMATOLOGY MCV 86.4 80.0 - 94.0 03/19/2016 [facility] HEMATOLOGY PT 14.8 12.0 - 14.7 03/18/2016 [facility] HEMATOLOGY INR 1.13 0.85 - 1.17 03/18/2016 [facility] HEMATOLOGY PTT 44.0 22.9 - 35.8 03/18/2016 [facility] HEMATOLOGY Heparin Ab(FREDI) Negative (03/17/16 5:10 PM) Negative 03/17/2016 [facility] HEMATOLOGY Pos CO Value 0.442 03/17/2016 [facility] HEMATOLOGY Pat Od Value 0.103 03/17/2016 [facility] PARATHYROID PROFILE Ca Norm WB 1.07 1.05 - 1.25 03/17/2016 [facility] PARATHYROID PROFILE Ca Ion WB 1.09 1.05 - 1.25 03/17/2016 [facility] CHEM PANEL Lactic Acid Lvl 7.2 0.5 - 2.2 03/16/2016 Result Comment: Critical Result(s) called to Marc Frost at 03/16/2016 00:41 by NT. Read back OK. [facility] HEMATOLOGY Bands 1.0 0.0 - 11.0 03/16/2016 [facility] HEMATOLOGY RBC Morph Normal (03/15/16 11:16 PM) 03/16/2016 [facility] HEMATOLOGY Giant Plt occasional 03/16/2016 [facility] HEMATOLOGY Atypical Lymphs 0.0 <=0.0 % 03/16/2016 [facility] PARATHYROID PROFILE Ca Ion WB 1.03 1.05 - 1.25 03/16/2016 [facility] PARATHYROID PROFILE Ca Norm WB 1.02 1.05 - 1.25 03/16/2016 [facility] CHEM PANEL Lactic Acid Lvl 4.8 0.5 - 2.2 03/15/2016 Result Comment: Critical Result(s) called to devyn frost at 03/15/2016 20:04 by nk. Read back OK. [facility] CHEM PANEL Lactic Acid Lvl 4.9 0.5 - 2.2 03/15/2016 Result Comment: Critical Result(s) called to Evelina Saucedo at 03/15/2016 15:41 by KW. Read back OK. [facility] PARATHYROID PROFILE Ca Norm WB 1.02 1.05 - 1.25 03/15/2016 [facility] PARATHYROID PROFILE Ca Ion WB 1.06 1.05 - 1.25 03/15/2016 [facility] BLOOD BANK RESULTS ABO/Rh O POS 03/15/2016 [facility] BLOOD BANK RESULTS Antibody Scrn Negative (03/15/16 6:14 AM) 03/15/2016 [facility] CHEM PANEL A/G Ratio 1.3 0.7 - 1.6 03/15/2016 [facility] CHEM PANEL Globulin 3.2 2.7 - 4.2 03/15/2016 [facility] CHEM PANEL B/C Ratio 11 6 - 25 03/15/2016 [facility] CHEM PANEL AST 13 0 - 37 03/15/2016 [facility] CHEM PANEL Albumin Lvl 4.1 3.5 - 5.0 03/15/2016 [facility] CHEM PANEL Total Protein 7.3 6.4 - 8.4 03/15/2016 [facility] CHEM PANEL ALT 29 0 - 65 03/15/2016 [facility] CHEM PANEL Bili Total 0.7 0.2 - 1.3 03/15/2016 [facility] CHEM PANEL Alk Phos 70 39 - 136 03/15/2016 [facility] BLOOD BANK RESULTS FFP product Product available (03/14/16 10:47 PM) 03/15/2016 [facility] BLOOD BANK RESULTS RBC product Product available (03/14/16 10:47 PM) 03/15/2016 [facility] BLOOD BANK RESULTS Platelet product Product available (03/14/16 1:33 PM) 03/14/2016 [facility] BLOOD BANK RESULTS Antibody Scrn Negative (02/16/16 11:45 AM) 02/16/2016 [facility] BLOOD BANK RESULTS ABO/Rh O POS 02/16/2016 [facility] CHEM PANEL Magnesium Lvl 2.3 1.8 - 2.4 02/16/2016 [facility] CHEM PANEL Phosphorus 3.7 2.5 - 4.5 02/16/2016 [facility] ELECTROLYTES AGAP 11.5 10.0 - 20.0 02/16/2016 [facility] ELECTROLYTES eGFR 49 02/16/2016 Result Comment: The eGFR is calculated [...] should be multiplied by the estimated BMI. [facility] ELECTROLYTES Potassium Lvl 4.5 3.5 - 5.1 02/16/2016 [facility] ELECTROLYTES Chloride Lvl 106 95 - 109 02/16/2016 [facility] ELECTROLYTES CO2 28 24 - 32 02/16/2016 [facility] ELECTROLYTES Calcium Lvl 8.8 8.5 - 10.5 02/16/2016 [facility] ELECTROLYTES Glucose Lvl 116 70 - 99 02/16/2016 [facility] ELECTROLYTES Creatinine Lvl 1.39 0.50 - 1.40 02/16/2016 [facility] ELECTROLYTES Sodium Lvl 141 135 - 145 02/16/2016 [facility] ELECTROLYTES BUN 17 7 - 22 02/16/2016 [facility] HEMATOLOGY INR 1.08 0.85 - 1.17 02/16/2016 [facility] HEMATOLOGY PTT 34.3 22.9 - 35.8 02/16/2016 [facility] HEMATOLOGY PT 14.3 12.0 - 14.7 02/16/2016 [facility] HEMATOLOGY Eosinophils # 0.1 0.0 - 0.5 02/16/2016 [facility] HEMATOLOGY Lymphocytes # 1.9 1.0 - 5.5 02/16/2016 [facility] HEMATOLOGY Basophils 0.4 0.0 - 1.0 02/16/2016 [facility] HEMATOLOGY Eosinophils 1.9 0.0 - 4.0 02/16/2016 [facility] HEMATOLOGY Monocytes # 0.4 0.0 - 0.8 02/16/2016 [facility] HEMATOLOGY Segs 55.1 45.0 - 75.0 02/16/2016 [facility] HEMATOLOGY Segs-Bands # 3.0 1.5 - 8.1 02/16/2016 [facility] HEMATOLOGY Monocytes 7.7 2.0 - 12.0 02/16/2016 [facility] HEMATOLOGY Lymphocytes 34.9 20.0 - 40.0 02/16/2016 [facility] HEMATOLOGY Hct 42.8 42.0 - 54.0 02/16/2016 [facility] HEMATOLOGY MCV 85.8 80.0 - 94.0 02/16/2016 [facility] HEMATOLOGY MCH 29.0 27.0 - 31.0 02/16/2016 [facility] HEMATOLOGY MCHC 33.9 32.0 - 36.0 02/16/2016 [facility] HEMATOLOGY RDW 13.7 11.5 - 14.5 02/16/2016 [facility] HEMATOLOGY RBC 4.99 4.70 - 6.10 02/16/2016 [facility] HEMATOLOGY Hgb 14.5 14.0 - 18.0 02/16/2016 [facility] HEMATOLOGY WBC 5.4 3.7 - 10.4 02/16/2016 [facility] HEMATOLOGY Platelet 174 133 - 450 02/16/2016 [facility] HEMATOLOGY MPV 9.6 7.4 - 10.4 02/16/2016 [facility] Pathology Reports No Data Provided for This Section Diagnostic Reports Report Value Date Source Chest 2 views DX EXAM: XR CHEST [...] can be obtained for further evaluation. 03/30/2016 [facility] Chest 1view DX EXAM: XR CHEST 1 [...] pleural effusion persists. IMPRESSION: No change. 03/21/2016 [facility] Chest US EXAM: US CHEST DATE: 03/21/2016 [...] measuring 520 mL as described above. 03/21/2016 [facility] Chest 1view DX EXAM: XR CHEST 1 [...] atelectasis in the right lung base. 03/21/2016 [facility] Chest 1view DX EXAM: XR CHEST 1 [...] size. 2. No significant changes otherwise. 03/20/2016 [facility] Chest 1view DX EXAM: XR CHEST 1 [...] lung bases. IMPRESSION: No significant change 03/19/2016 [facility] Chest 1view DX EXAM: XR CHEST 1 [...] No significant change from yesterday morning. 03/18/2016 [facility] Chest 1view DX EXAM: XR CHEST 1 [...] in size. 3. Bibasilar subsegmental atelectasis 03/17/2016 [facility] Chest 1view DX EXAM: XR CHEST 1 VIEW DATE: 03/17/2016 3:00 AM CDT INDICATION: Tube placement/removal/reposition. FINDINGS: Comparison is made to yesterday. The cardiomediastinal silhouette and postoperative changes are stable. The patient is status post median sternotomy with [address] The Oxford-Dillan catheter has been removed. There is a [...] lung volumes with bibasilar subsegmental atelectasis. 03/17/2016 [facility] Chest 1view DX EXAM: XR CHEST 1 [...] 2. Bibasilar subsegmental atelectasis. 3. Extubated. 03/16/2016 [facility] Chest 1view DX EXAM: XR CHEST 1 VIEW DATE: 03/15/2016 1:40 PM CDT INDICATION: Tube placement/removal/reposition OTHER CLINICAL INFORMATION: Status post coronary artery bypass graft. COMPARISON: 03/15/2016 at 0625. TECHNIQUE: AP chest FINDINGS: Lines and tubes: ET tube tip is 3.5 cm above the rochelle. Right IJ approach Oxford-Dillan catheter with its tip overlying the proximal [...] right paratracheal density is less conspicuous. 03/15/2016 [facility] Chest 1view DX EXAM: XR CHEST 1 [...] Minimal subsegmental atelectasis left lung base. 03/15/2016 [facility] Carotid artery Doppler bilat US Study: Carotid [...] occlusion High, low, or Variable undetectable SL: [id number] 02/25/2016 [facility] Consultation Notes No Data Provided for This Section Discharge Summaries No Data Provided for This Section History and Physicals No Data Provided for This Section Vital Signs Vital Sign Value Date Comments Source BMI Calculated 26.64 06/23/2016 [facility] Weight 81.818 06/23/2016 [facility] Height 175.26 cm 06/23/2016 [facility] Height 175.26 cm 05/22/2016 [facility] BMI Calculated 26.64 05/22/2016 [facility] Weight 81.818 05/22/2016 [facility] Height 175.26 cm 04/21/2016 [facility] BMI Calculated 26.64 04/21/2016 [facility] Weight 81.818 04/21/2016 [facility] Height 175.26 cm 03/30/2016 [facility] Weight 80.625 03/30/2016 [facility] BMI Calculated 26.25 03/30/2016 [facility] Temperature Oral (F) 97.9 F 03/30/2016 [facility] Respitory Rate 16 03/30/2016 [facility] Heart Rate 79 03/30/2016 [facility] Systolic (mm Hg) 144 03/30/2016 [facility] Diastolic (mm Hg) 78 03/30/2016 [facility] Weight 80.909 03/30/2016 [facility] BMI Calculated 26.34 03/30/2016 [facility] Height 175.26 cm 03/30/2016 [facility] Systolic (mm Hg) 108 03/21/2016 [facility] Diastolic (mm Hg) 54 03/21/2016 [facility] Respitory Rate 21 03/21/2016 [facility] Temperature Oral (F) 98.4 F 03/21/2016 [facility] Respitory Rate 32 03/21/2016 [facility] Systolic (mm Hg) 99 03/21/2016 [facility] Diastolic (mm Hg) 59 03/21/2016 [facility] Respitory Rate 18 03/21/2016 [facility] Systolic (mm Hg) 118 03/21/2016 [facility] Diastolic (mm Hg) 58 03/21/2016 [facility] Temperature Oral (F) 98.2 F 03/21/2016 [facility] Temperature Oral (F) 96.5 F 03/20/2016 [facility] Height 175.26 cm 03/16/2016 [facility] Weight 86.3 03/15/2016 [facility] Height 172.72 cm 03/15/2016 [facility] BMI Calculated 28.93 03/15/2016 [facility] Weight 86.3 03/15/2016 [facility] Weight 86.3 03/15/2016 [facility] Heart Rate 74 03/15/2016 [facility] Height 175.26 cm 02/29/2016 [facility] Weight 86.364 02/29/2016 [facility] BMI Calculated 28.12 02/29/2016 [facility] Height 175.26 cm 02/23/2016 [facility] BMI Calculated 28 02/23/2016 [facility] Weight 86.007 02/23/2016 [facility] Systolic (mm Hg) 132 02/23/2016 [facility] Diastolic (mm Hg) 77 02/23/2016 [facility] Temperature Oral (F) 97.4 F 02/23/2016 [facility] Respitory Rate 18 02/23/2016 [facility] Heart Rate 66 02/23/2016 [facility] Systolic (mm Hg) 151 02/17/2016 [facility] Diastolic (mm Hg) 75 02/17/2016 [facility] Systolic (mm Hg) 111 02/17/2016 [facility] Diastolic (mm Hg) 64 02/17/2016 [facility] Systolic (mm Hg) 111 02/17/2016 [facility] Diastolic (mm Hg) 64 02/17/2016 [facility] Respitory Rate 19 02/16/2016 [facility] Respitory Rate 18 02/16/2016 [facility] Respitory Rate 18 02/16/2016 [facility] Height 175.26 cm 02/16/2016 [facility] Weight 86.364 02/16/2016 [facility] BMI Calculated 28.12 02/16/2016 [facility] Encounters Location Location Details Encounter Type Encounter Number Reason For Visit Attending Provider ADM Date DC Date Status Source [facility] Bedded Outpatient [id number] [address] Nascimbene 02/16/2016 02/17/2016 [facility] Outpatient [id number] Oracio Gregoric 02/23/2016 02/24/2016 [facility] Outpatient [id number] Oracio Gregoric 02/29/2016 03/01/2016 [place] [facility]patient [id number] Bria Smith 03/15/2016 03/21/2016 [facility] Outpatient [id number] Soma Jyothula 03/30/2016 03/31/2016 [id number] Soma Jyothula 03/30/2016 03/31/2016 [facility] Recurring [id number] [address] Nascimbene 04/21/2016 05/21/2016 [facility] Recurring [id number] [address] Nascimbene 05/22/2016 06/21/2016 [facility] Recurring [id number] [address] Nascimbene 06/23/2016 07/23/2016 [facility] Departed Emergency Room [id number] KONRAD PITTS MD 10/29/2017 10/29/2017 [facility] Departed Emergency Room [id number] BAYRON DUNCAN MD 08/21/2018 08/21/2018 [facility] Procedures Procedure Code Date Perfomer Comments Source Cardiac catheterization, left heart<sup>1</sup> [id number] stent to LAD [facility] [place] Assessment and Plan Assessment and Plan Date Source Extracted from:Title: Discharge Note Author: Imani Moulton Date: 03/21/16 [...] Discharge Condition Stable Discharge Disposition Home Extracted from:Title: F Inpatient Progress Note Author: Imani Moulton Date: [...] heart healthy Dispo: likely home tomorrow Extracted from:Title: [facility] ICU Consult Note Author: Philippe Gutierrez DO [...] Score 4-6 acetaminophen: 650 mg, 1 supp, AK, Q4H, PRN: Pain Score 1-3 acetaminophen: 650 mg, 2 tab, PO, Q4H, PRN: Pain 1-3/Temp > 100.4 F aspirin: 325 mg, 1 tab, NG, Daily atorvastatin: 40 mg, 1 tab, PO, Bedtime ceFAZolin (SCIP): 2 gm, 100 mL, 200 ml/hr, IVPB, [id number] fentaNYL AIRCRAFT WORKER 20 micrograms/ml 30 ml 600 microgram: Per [employer]CRAFT WORKER Order as Directed, IV, Stop: 04/14/16 13:59:00 [...] 150 mL: 750 mg, 150 ml/hr, IVPB, [id number] Documented Medications Documented Nitrostat 0.4 mg sublingual [...] 0.9% INJ 150 mL 750 mg, IVPB, [id number] Continuous: (5) EPINEPHrine 1 mg/1 ml (PF) INJ AMP 4 mg + sodium chloride 0.9% INJ 246 mL 4 mg 4 mL, IV fentaNYL AIRCRAFT WORKER 20 micrograms/ml 30 ml 600 microgram 600 [...] mg rect SUPP 650 mg 1 supp, AK, Q4H acetaminophen-hydrocodone 325-10mg TAB 1 tab, PO, [...] History: Resolved CAD - Coronary artery disease (7106532404): Resolved. Angina (718157037): Resolved. GERD (gastroesophageal reflux disease) ([id number]): Resolved. HTN (hypertension) ([id number]): Resolved. HLD (hyperlipidemia) ([id number]): Resolved. Left ventricular hypertrophy (75487349): Resolved. Murmur (2977130224): Resolved. Diabetes ([id number]): Resolved. Hypertension (47173463): Resolved. Hyperlipidemia (39776711): Resolved. Coronary artery disease (6100403169): Resolved. Angina (449334899): Resolved. Family History: Hypertension Mother Heart disease Mother Chest pain Mother Procedure history: Cardiac catheterization, left heart ([id number]). Comments: 02/16/2016 11:38 - Víctor Guillermo RN stent to LAD Social History Social and Psychosocial Habits Tobacco 03/15/2016 Use: Never smoker Exposure to Tobacco Smoke None Cigarette Smoking Last 365 Days No Reg Smoking Cessation Counseling No . Physical Examination VS/Measurements Vital Signs (last 24 hrs) Last Charted Temp Axillary H 100.1DegF (MAR 15 18:30) Heart Rate Apical H 111bpm (MAR 16 03:00) Resp Rate H 27BRMIN (MAR 16 03:00) SBP H 149mmHg (MAR 15 06:30) DBP 75 mmHg (MAR 15 06:30) SpO2 98 % (MAR 16 03:00) Weight 86.3 kg (MAR 15 16:24) Height 172.72 cm (MAR 15 15:00) BMI 28.93 (MAR 15 15:00) , Measurements from flowsheet [...] Labs (Last four charted values) WBC H 13.6 (MAR 15) H 21.2 (MAR 15) 5.3 (MAR 15) Hgb L 10.8 (MAR 15) 14.3 (MAR 15) 15.9 (MAR 15) Hct L 32.6 (MAR 15) 42.3 (MAR 15) 46.2 (MAR 15) Plt L 121 (MAR 15) 135 (MAR 15) 158 (MAR 15) Na 143 (MAR 15) 145 (MAR 15) 142 (MAR 15) K 4.2 (MAR 15) 4.1 (MAR 15) 3.8 (MAR 15) CO2 L 20 (MAR 15) L 23 (MAR 15) 26 (MAR 15) Cl 107 (MAR 15) H 110 (MAR 15) 107 (MAR 15) Cr H 1.60 (MAR 15) 1.23 (MAR 15) 1.24 (MAR 15) BUN 16 (MAR 15) 14 (MAR 15) 14 (MAR 15) Glucose Random H 210 (MAR 15) H 168 (MAR 15) H 110 (MAR 15) Mg 2.1 (MAR 15) 2.3 (MAR 15) H 2.5 (MAR 15) Phos 3.8 (MAR 15) 3.9 (MAR 15) 3.2 (MAR 15) Ca L 7.6 (MAR 15) L 7.6 (MAR 15) 8.9 (MAR 15) PT H 17.1 (MAR 15) 13.8 (MAR 15) INR H 1.36 (MAR 15) 1.03 (MAR 15) PTT 31.4 (MAR 15) 35.0 (MAR 15) . Impression and Plan 75 y/o M with GERD, DM, HTN, HLD, CAD s/p 4 vessel CABG. He is awaking, following commands, hemodynamically stable. His hemodynamics have been stable and WNL. Neuro: - sedation holiday has been provided - he will need PT/OT - pain controll with fentanyl [employer]FT WORKER transition to oral over the next 24 [...] been communicated to the primary team. Addendum by Shelley Madsen MD on 03/16/2016 15:30 I have seen and examined the patient with Dr. Gutierrez. I agree with his assessment and plan, additions and corrections if any are below. I have discussed the case with the bedside nurse and the plan has been communicated to the primary team. Neuro - avoid narcotics if possible. Deconditioning concerning, PT working with patient. Patient to walk first time today. CV - per HF service. RESP - After assessment of his respiratory status based on vital capacity, rapid shallow breathing index (f/VT, <105, post-extubation failure is reported 5- 10%), negative inspiratory force, presence of good cuff [...] to care for patient and documentation. 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 Angina (023974881): Resolved. GERD (gastroesophageal reflux disease) ([id number]): Resolved. HTN (hypertension) ([id number]): Resolved. HLD (hyperlipidemia) ([id number]): Resolved. Left ventricular hypertrophy (91060146): Resolved. Murmur (6845057943): Resolved. Diabetes ([id number]): Resolved. Hypertension (83196021): Resolved. Hyperlipidemia (27885334): Resolved. Coronary artery disease (7527441700): Resolved. Angina (542762944): Resolved. Family History: Hypertension Mother Heart disease Mother Chest pain Mother Procedure history (This Hospitalization): Cardiac catheterization, left heart ([id number]). Comments: 02/16/2016 11:38 - Víctor Guillermo RN [...] (last 24 hrs) Last Charted Heart Rate Apical 76 bpm (MAR 15 16:00) Resp Rate H 21BRMIN (MAR 15 16:00) SBP H 149mmHg (MAR 15 06:30) DBP 75 mmHg (MAR 15 06:30) SpO2 100 % (MAR 15:) Weight 86.3 kg (MAR 15 16:24) Height 172.72 cm (MAR 15 15:00) BMI 28.93 (MAR 15 15:00) , Vitals Tmp(F) Pulse BP RR SpO2 FIO2 03/15 16:00 ---- 76 ----- 21 100 --- 03/15 15:30 ---- 80 ----- 7 100 --- 03/15 15:00 ---- 83 ----- 7 100 --- 03/15 14:45 97.7 81 ----- 21 98 --- 08 14:30 ---- 79 ----- 19 100 40% 24 Hr Tmax: 98.0F (36.67c) at 03/15 06:30 Vital Signs are the last 5 in the past 48 hours. Intake and Output I/O Intake Output Balance 03/15/2016 7a-3p 3160.49 3160.00 0.49 3p-11p 0.00 85.00 -85.00 As of 16:35 11p-7a 0.00 0.00 0.00 Totals 3160.49 3245.00 -84.51 03/14/2016 7a-3p 0.00 0.00 0.00 3p-11p 0.00 0.00 0.00 11p-7a 0.00 0.00 0.00 Totals 0.00 0.00 0.00 03/13/2016 7a-3p 0.00 0.00 0.00 3p-11p 0.00 0.00 0.00 [...] (last 24 hrs) Last Charted Heart Rate Apical 76 bpm (MAR 15 16:00) Resp Rate H 21BRMIN (MAR 15 16:00) SBP H 149mmHg (MAR 15 06:30) DBP 75 mmHg (MAR 15 06:30) SpO2 100 % (MAR 15 16:00) Weight 86.3 kg (MAR 15 16:24) Height 172.72 cm (MAR 15 15:00) BMI 28.93 (MAR 15 15:00) GENERAL: Intubated. Alert and [...] Labs (Last four charted values) WBC H 21.2 (MAR 15) 5.3 (MAR 15) Hgb 14.3 (MAR 15) 15.9 (MAR 15) Hct 42.3 (MAR 15) 46.2 (MAR 15) Plt 135 (MAR 15) 158 (MAR 15) Na 145 (MAR 15) 142 (MAR 15) K 4.1 (MAR 15) 3.8 (MAR 15) CO2 L 23 (MAR 15) 26 (MAR 15) Cl H 110 (MAR 15) 107 (MAR 15) Cr 1.23 (MAR 15) 1.24 (MAR 15) BUN 14 (MAR 15) 14 (MAR 15) Glucose Random H 168 (MAR 15) H 110 (MAR 15) Mg 2.3 (MAR 15) H 2.5 (MAR 15) Phos 3.9 (MAR 15) 3.2 (MAR 15) Ca L 7.6 (MAR 15) 8.9 (MAR 15) PT H 17.1 (MAR 15) 13.8 (MAR 15) INR H 1.36 (MAR 15) 1.03 (MAR 15) PTT 31.4 (MAR 15) 35.0 (MAR 15) . Laboratory Results Radiology results Discussed with radiologist Cardiology Results Left ventricular ejection fraction: 03/15/2016 16:00 SpO2 percent 100 03/15/2016 14:30 Invasive Vent Mode [id number]-[id number] Pressure Support 10 PEEP/CPAP 5 FIO2 (%) 40 03/15/2016 14:21 Vent Start Time 03/15/2016 14:15 Tidal Volume 480 Resp Rate, Set 16 Mean Airway Pressure 8.1 Ambu Bag Mask to O2 Yes Resp Rate, Actual 16 Exhaled Tidal Vol (ml) 481 Peak Pressure (cmH2O) 19 Inspiratory Time 1.0 Airway Tube Size 8.0 Kevin at Lip/Nare (cm) 24 ET Tube Position Middle lip up Tube Secured With Tube briones Lines and Tubes: Lines, Tubes, and Drains: 03/15/2016 14:00 PA Line Assessment: Site: Right, Internal jugular 03/15/2016 14:00 Chest Tube Assessment: Left lateral 36 Kenyan 03/15/2016 12:55 Arterial Lines: Single lumen Radial artery Right 20 gauge 03/15/2016 12:42 Chest Tube Assessment: Mediastinal 36 Kenyan 03/15/2016 11:57 Chest Tube Assessment: Left anterior 36 Kenyan 03/15/2016 09:32 Central Lines: Internal jugular, left Non-tunneled (most common) Triple 03/15/2016 09:31 Indwelling Urinary Catheter: Urethral 16 Kenyan Indwelling/Continuous 03/15/2016 06:15 Peripheral Lines: Antecubital Left 20 gauge Over the needle catheter . Impression and Plan CAD s/p PCI 2006 on proximal LAD, DM, HTN, and HLD who underwent 4v CABG 03/15/16. 1. CAD s/p CABG- ACB (JORDAN to LAD, GSVG to OM, GSVG to Diagonal, GSVG to RCA), LLE EVH above and below knee. 02/23/16 EF was found to be 40-45% continue ASA and Statin plan of fast track and extuabted today post op pain managment, [address] [place] shows SVO2 45%, CVP 9, LA 4.3 2.HTN- patient boderline pressures, will montior closely off pressors 3.HLD- cont statin 4.DM- hold metformin, ISS once extubated and eating dvt ppx- scd Addendum by Reyna Mcfarland MD on 03/15/2016 17:48 Cardiology attending attestation: Patient seen and examined with Dr Nova on 03/15/2016. Please see note for details. CC: unable to assess Laboratory, ECG, telemetry and radiologic results have been reviewed. Our plan is to continue post-CABG care. Fast-track extubation. He's on no pressors/inotropes at this time. Dr Nova and I have discussed and formulated the plan together. Extracted from:Title: CANDIDA.ACB Author: Amita Floyd Date: 03/15/16 ADVANCED HEART FAILURE/CV SURGERY BRIEF OP NOTE Preop Diagnosis: CAD Postop Diagnosis: same Procedures: 4v ACB (JORDAN to LAD, GSVG to OM, GSVG to Diagonal, GSVG to RCA), LLE EVH above and below knee Surgeon: Bria Smith MD Co-Surgeon: Candelario Serrato MD Aerospace Quality Engineer: Amita Floyd PA-C (there was no qualified [...] pleural) Complications: none Specimens: none Dictation #: [id number] Disposition: I ICU in stable condition, intubated Extracted from:Title: CANDIDA.H&P Author: Amita Floyd Date: 03/15/16 Based on examination of the patient, there are no changes in the patient's current condition. Original H&P done in clinic by Hyacinth Gomes PA-C on 02/23/16. Amita Floyd PA-C Advanced Heart Failure Transplant/CV Surgery 03/21/2016 [facility] Plan of Care Plan of Care Date Source Discharge Date 08/21/18 2:09pm Disposition HOME, SELF-CARE Condition at Discharge Stable Instructions/Education Provided Bronchitis (Acute) - Adult Forms Provided Work/School Excuse Prescriptions See Medication Section Additional Instructions/Education FOLLOW UP WITH PRIMARY CARE DOCTOR IF NEEDED TAKE MEDICATIONS DIRECTED DRINK PLENTY OF FLUIDS 08/21/2018 [facility] Social History Social History Date Source Smoking Status Start Date Stop Date Former smoker 08/21/2018 [facility] Social History TypeResponse Smoking Status Never smoker; Exposure to Tobacco Smoke None; Cigarette Smoking Last 365 Days No; Reg Smoking Cessation Counseling No 03/30/2016 [facility] Social History TypeResponse Smoking Status Never smoker; Exposure to Tobacco Smoke None; Cigarette Smoking Last 365 Days No; Reg Smoking Cessation Counseling No 03/30/2016 [facility] Social History TypeResponse Smoking Status Never smoker; Exposure to Tobacco Smoke None; Cigarette Smoking Last 365 Days No; Reg Smoking Cessation Counseling No 03/30/2016 [facility] Family History No Data Provided for This Section Advance Directives Order Name Results Value Date Source Advance Directives Advance Directives Directive Response Recorded Date/Time Does the patient have an advance directive? Yes 08/21/18 1:16pm If yes, is advance directive on file with [facility]? No 10/29/17 8:39pm If not on file with [facility] will patient provide a copy? No 10/29/17 8:39pm Do you have a Directive to Physician? Yes 08/21/18 1:16pm Do you have a Medical Power of Technical Services Specialist? No 08/21/18 1:16pm Do you have an out of hospital Do Not Resuscitate Order? No 08/21/18 1:16pm Do you have any special needs we should be aware of? No 08/21/18 1:16pm Do you have a support person here with you today? Yes 08/21/18 1:16pm Did patient receive Notice of Privacy Practices? Yes 08/21/18 1:16pm Did patient receive patient rights and responsibilities? Yes 08/21/18 1:16pm 08/21/2018 [facility] Functional Status No Data Provided for This Section
[2019-03-28] MEDS ORDERED: TETANUS/DIPHTHERIA TOX ADULT 0.5 ML SYR IM ONE (10:30)
[2019-03-28] MEDS ORDERED: BACITRACIN ZINC 0.9GM TP ONE ×2 (10:30→10:37)
[2019-03-28] MEDS ORDERED: LIDOCAINE HCL 2% LOCAL 20 ML VIAL ONE (10:36)
[2019-03-28] MEDS ORDERED: TETANUS/DIPHTHERIA TOX ADULT 0.5 ML SYR ONE (10:37)
[2019-03-28] MEDS ORDERED: LIDOCAINE HCL 1% 2 ML AMP INJ ONE (11:00)
--- NOTE | 2019-03-28 11:26 | NUR ---
bacitracin, xeroform, sterile 4x4's , coban. supplies given.
--- NOTE | 2019-03-28 11:28 | NUR ---
10 sutures on 5 cm lac 3 sutures and superfical lac lateral side of bottom of finger proximal
--- NOTE | 2019-03-28 11:30 | NUR ---
md caridad reynolds and gabriel will see pt now in office.
--- NOTE | 2019-03-28 11:33 | Diagnostic Imaging Report ---
Left fifth finger, 3 views. History: Cut left fifth finger. Findings: Bandaging material is present overlying the left fifth digit. There is diffuse soft tissue swelling. Multiple small metallic fragments are present throughout the soft tissues proximally. Bone mineralization is normal. There is no evidence of fracture or dislocation. There are no lytic or sclerotic lesions. Severe distal and proximal interphalangeal joint space narrowing is present involving the second through fifth digits. IMPRESSION: Severe arthritis of the finger with soft tissue swelling and multiple small metallic foreign bodies, but no evidence of fracture or dislocation. Signed by: Nguyễn Ballesteros on 03/28/2019 11:30 AM
== END 2019-03-28 11:31 | disposition home or self-care (01) ==
LOC: FSED 10:18
DX: S61.217A Laceration without foreign body of left little finger without damage to nail, initial encounter (principal); W22.8XXA Striking against or struck by other objects, initial encounter; Y99.0 Civilian activity done for income or pay; I10 Essential (primary) hypertension; E11.9 Type 2 diabetes mellitus without complications; I50.9 Heart failure, unspecified; E78.5 Hyperlipidemia, unspecified; Z95.1 Presence of aortocoronary bypass graft
CPT/HCPCS: 12001; 12042; 73140; 90471; 90714; 99283; J2001 ×2

== ENCOUNTER 2021-04-07 11:47 | Emergency (ER) | payer MEDICARE ==
[~2021-04-07] VITALS: Ht 175.3 cm; Wt 86.2 kg
[2021-04-07] MEDS ORDERED: PEPCID20 MG PO (12:25)
[2021-04-07] MEDS ORDERED: VASOTEC10 M1 PO (12:26)
[2021-04-07] MEDS ORDERED: KETOROLAC TROMETHAMINE 30 MG/ML VIAL IV STA (14:10)
[2021-04-07] MEDS ORDERED: KETOROLAC TROMETHAMINE 30 MG/ML VIAL ONE (14:21)
[2021-04-07 14:51] VITALS: BP 138/74
== END 2021-04-07 14:55 | disposition home or self-care (01) ==
LOC: FSED 11:52
DX: R07.89 Other chest pain (principal); M54.2 Cervicalgia; E11.65 Type 2 diabetes mellitus with hyperglycemia; I10 Essential (primary) hypertension; E78.5 Hyperlipidemia, unspecified; I50.9 Heart failure, unspecified; K21.9 Gastro-esophageal reflux disease without esophagitis; N40.0 Benign prostatic hyperplasia without lower urinary tract symptoms; I25.10 Atherosclerotic heart disease of native coronary artery without angina pectoris; Z95.1 Presence of aortocoronary bypass graft
CPT/HCPCS: 71046; 80053; 81003; 82553; 83880; 84484; 85025; 93005; 99283; J1885; U0002